=== PATIENT | male | born 1955 | race Caucasian/White ===

== ENCOUNTER 2021-09-01 12:08 | Outpatient (CLI) | payer MEDICARE, MEDICAID ==
[2021-09-01 12:34] LABS: BASOPHILS % (AUTO) 0.3 % (0-1); EOSINOPHILS % (AUTO) 0.1 % (0-6); HEMATOCRIT 36.8 % (42.0-52.0); LYMPHOCYTES # (AUTO) 1.2 X10'3 (1.1-4.8); MEAN CORPUSCULAR HEMOGLOBIN 30.6 PG (27.0-31.0); MEAN CORPUSCULAR HGB CONC 32.7 g/dL (33.0-36.5); MEAN CORPUSCULAR VOLUME 93.5 FL (78-98); MEAN PLATELET VOLUME 7.5 FL (7.4-10.4); MONOCYTES # (AUTO) 0.8 X10'3 (0-0.9); MONOCYTES % (AUTO) 12.4 % (2-12); NEUTROPHILS # (AUTO) 4.2 X10'3 (1.8-7.7); NEUTROPHILS % (AUTO) 68.2 % (42-75); PLATELET COUNT 225 X10'3 (140-440); RED BLOOD COUNT 3.94 X10'6 (4.70-6.10); RED CELL DISTRIBUTION WIDTH 13.3 % (11.5-14.5); WHITE BLOOD COUNT 6.1 X10'3 (4.5-11.0)
== END 2021-09-01 23:59 | disposition home or self-care (01) ==
LOC: LAB 12:08
DX: F25.0 Schizoaffective disorder, bipolar type (principal); F43.12 Post-traumatic stress disorder, chronic
CPT/HCPCS: 36415; 85025

== ENCOUNTER 2021-10-01 14:25 | Outpatient (CLI) | payer MEDICARE, MEDICAID ==
[2021-10-01 16:09] LABS: BASOPHILS % (AUTO) 0.5 % (0-1); EOSINOPHILS % (AUTO) 0.1 % (0-6); HEMOGLOBIN 11.8 g/dl (14.0-17.9); LYMPHOCYTES # (AUTO) 1.4 X10'3 (1.1-4.8); LYMPHOCYTES % (AUTO) 21.6 % (21-51); MEAN CORPUSCULAR HEMOGLOBIN 31.9 PG (27.0-31.0); MEAN CORPUSCULAR HGB CONC 33.8 g/dL (33.0-36.5); MEAN CORPUSCULAR VOLUME 94.4 FL (78-98); MEAN PLATELET VOLUME 8.5 FL (7.4-10.4); MONOCYTES # (AUTO) 0.7 X10'3 (0-0.9); MONOCYTES % (AUTO) 11.5 % (2-12); NEUTROPHILS # (AUTO) 4.2 X10'3 (1.8-7.7); NEUTROPHILS % (AUTO) 66.3 % (42-75); PLATELET COUNT 236 X10'3 (140-440); RED BLOOD COUNT 3.71 X10'6 (4.70-6.10); RED CELL DISTRIBUTION WIDTH 13.2 % (11.5-14.5); WHITE BLOOD COUNT 6.4 X10'3 (4.5-11.0)
== END 2021-10-01 23:59 | disposition home or self-care (01) ==
LOC: LAB 14:25
DX: F25.0 Schizoaffective disorder, bipolar type (principal); F43.12 Post-traumatic stress disorder, chronic
CPT/HCPCS: 36415; 85025

== ENCOUNTER 2021-11-20 14:13 | Inpatient (IN) | payer MEDICARE, MEDICAID ==
[~2021-11-20] VITALS: Ht 175.3 cm; Wt 54.5 kg
[2021-11-20 15:15] LABS: URINE AMPHETAMINE SCREEN NEGATIVE (Neg); URINE BARBITUATE SCREEN NEGATIVE (Neg); URINE BENZODIAZEPINES SCREEN NEGATIVE (Neg); URINE CANNABINOID SCREEN NEGATIVE (Neg); URINE COCAINE SCREEN NEGATIVE (Neg); URINE METHADONE SCREEN NEGATIVE (Neg); URINE OPIATE SCREEN NEGATIVE (Neg); URINE PHENCYCLIDINE SCREEN NEGATIVE (Neg)
[2021-11-20 15:19] LABS: CLARITY,URINE CLOUDY (Clear); COLOR,URINE YELLOW (Yellow); GLUCOSE, URINE NEGATIVE (Neg); KETONES,URINE NEGATIVE (Neg); LEUKOCYTE ESTERASE ,URINE MODERATE (Neg); NITRITES, URINE POSITIVE (Neg); OCCULT BLOOD,URINE MODERATE (Neg); PH,URINE 8.5 (4.8-8.0); PROTEIN,URINE 100 mg/dl (Neg)
[2021-11-20 15:20] LABS: UA COLLECTION TYPE CLN CATCH MIDSTREAM
[2021-11-20 15:21] LABS: BASOPHILS % (AUTO) 0.1 % (0-1); EOSINOPHILS % (AUTO) 0 % (0-6); HEMATOCRIT 32.1 % (42.0-52.0); HEMOGLOBIN 10.9 g/dl (14.0-17.9); LYMPHOCYTES # (AUTO) 0.6 X10'3 (1.1-4.8); LYMPHOCYTES % (AUTO) 3.6 % (21-51); MEAN CORPUSCULAR HEMOGLOBIN 30.5 PG (27.0-31.0); MEAN CORPUSCULAR HGB CONC 33.8 g/dL (33.0-36.5); MEAN CORPUSCULAR VOLUME 90.2 FL (78-98); MONOCYTES # (AUTO) 1.5 X10'3 (0-0.9); MONOCYTES % (AUTO) 9.6 % (2-12); NEUTROPHILS # (AUTO) 13.4 X10'3 (1.8-7.7); NEUTROPHILS % (AUTO) 86.7 % (42-75); PLATELET COUNT 235 X10'3 (140-440); RED BLOOD COUNT 3.56 X10'6 (4.70-6.10); RED CELL DISTRIBUTION WIDTH 12.5 % (11.5-14.5); WHITE BLOOD COUNT 15.5 X10'3 (4.5-11.0)
[2021-11-20 15:26] LABS: ALANINE AMINOTRANSFERASE 20 U/L (12-78); ALBUMIN 2.9 G/DL (3.4-5.0); ALBUMIN/GLOBULIN RATIO 0.6 (1.1-1.5); ALKALINE PHOSPHATASE 105 IU/L (46-116); ANION GAP 9 (8-16); ASPARTATE AMINO TRANSFERASE 19 U/L (10-37); BILIRUBIN,TOTAL 0.4 MG/DL (0.1-1.0); BLOOD UREA NITROGEN 50 MG/DL (7-18); BUN/CREATININE RATIO 20.6 (5.4-32.0); CALCIUM 9.4 MG/DL (8.5-10.1); CHLORIDE 96 MMOL/L (99-107); CREATININE 2.43 MG/DL (0.60-1.10); ETHANOL < 0.010 GM/DL (0.0-0.010); GLUCOSE 135 MG/DL (70-104); POTASSIUM 3.6 MMOL/L (3.5-5.1); SODIUM 131 MMOL/L (135-145); TOTAL CARBON DIOXIDE 25.6 MMOL/L (24-32); TOTAL PROTEIN 7.6 G/DL (6.4-8.2); eGFR 27 ML/MIN
[2021-11-20] MEDS ORDERED: CLOZAPINE 25 MG oral disintegrating tablet PO ONE (15:30)
[2021-11-20 15:32] LABS: SQUAMOUS EPITHELIAL CELL,UR FEW /LPF (FEW)
[2021-11-20 15:33] LABS: BACTERIA,URINE 2+ /HPF (Neg); WBC,URINE 20-30 /HPF (0-4)
[2021-11-20] MEDS ORDERED: clozapine 25mg tablet PO ONE ×2 (15:35)
[2021-11-20] MEDS ORDERED: ibuprofen 200mg tablet PO ONE (15:35)
[2021-11-20] MEDS ORDERED: CefTRIAXone/D5W-Rocephin 1gm 50 ML IV ONE (15:45)
--- NOTE | 2021-11-20 16:03 | NUR ---
BLACKWELL CATHETER REMOVED.
[2021-11-20] MEDS ORDERED: ondansetron 4mg rapidly disintigrating tab PO PRN (16:35)
[2021-11-20] MEDS ORDERED: diphenhydrAMINE 50 mg/ml inj IV PRN (16:35)
[2021-11-20] MEDS ORDERED: HYDROmorphone inj. 0.5 MG/0.5 ML DISP.SYRIN IV PRN (16:35)
[2021-11-20] MEDS ORDERED: bisacodyl 10mg suppository rectal RC PRN (16:35)
[2021-11-20] MEDS ORDERED: ondansetron/PF 4mg/2ml inj IV PRN (16:35)
[2021-11-20] MEDS ORDERED: HYDROmorphone/PF 0.2 MG/ML SYRINGE IV PRN (16:35)
[2021-11-20] MEDS ORDERED: mag hydrox/Alum hydrox/simeth 30ml oral suspension PO PRN (16:35)
[2021-11-20] MEDS ORDERED: HYDROcodone/acetaminophen 5mg/325mg tablet PO PRN (16:35)
[2021-11-20] MEDS ORDERED: POTASSIUM BICARB 20meq eff tab 20 MEQ TABLET.EFF PO PRN ×2 (16:35)
[2021-11-20] MEDS ORDERED: acetaminophen 325mg tablet PO PRN (16:35)
[2021-11-20] MEDS ORDERED: metoclopramide 5 mg/ml inj IV PRN (16:35)
[2021-11-20] MEDS ORDERED: diphenhydrAMINE 25mg capsule PO PRN (16:35)
[2021-11-20] MEDS ORDERED: potassium CL 10mEq/100ml bag 100 ML IV PRN (16:35)
[2021-11-20] MEDS ORDERED: magnesium Cl slow-release 64mg tablet PO PRN (16:35)
[2021-11-20] MEDS ORDERED: magnesium 2GM in 50ml NS 50 ML IV PRN (16:35)
[2021-11-20] MEDS ORDERED: magnesium 4gm in 100ml NS 100 ML IV PRN (16:35)
[2021-11-20] MEDS ORDERED: normal saline 1000ML IV soln IVB ONE (16:40)
[2021-11-20] MEDS: normal saline 1000ml 1,000 ML IV SCH (17:19)
[2021-11-20] MEDS ORDERED: CLOZ25TA12 PO (17:24)
[2021-11-20] MEDS ORDERED: TAMSULOSIN (17:24)
[2021-11-20] MEDS ORDERED: FLO0.4C (17:24)
[2021-11-20] MEDS ORDERED: CLOZ50TA PO ×2 (17:24→17:27)
[2021-11-20] MEDS ORDERED: DOCU-171 PO (17:25)
[2021-11-20] MEDS ORDERED: LIDOcaine 2% 10ml TOPICAL JELLY (Urojet) TP ONE (18:40)
[2021-11-20] MEDS: docusate sod 100mg capsule PO SCH (20:00)
[2021-11-20] MEDS: K and/or MAG REPLACEMENT MC SCH (20:00)
[2021-11-20] MEDS: heparin, porcine 5000 units/ml vial SQ SCH (20:58)
[2021-11-21] MEDS: normal saline 1000ml 1,000 ML IV SCH ×4 (02:36→23:09)
[2021-11-21 02:46] LABS: BASOPHILS % (AUTO) 0.1 % (0-1); EOSINOPHILS % (AUTO) 0 % (0-6); HEMATOCRIT 40.3 % (42.0-52.0); HEMOGLOBIN 13.5 g/dl (14.0-17.9); LYMPHOCYTES # (AUTO) 0.7 X10'3 (1.1-4.8); LYMPHOCYTES % (AUTO) 5.9 % (21-51); MEAN CORPUSCULAR HEMOGLOBIN 30.4 PG (27.0-31.0); MEAN CORPUSCULAR HGB CONC 33.5 g/dL (33.0-36.5); MEAN CORPUSCULAR VOLUME 90.9 FL (78-98); MEAN PLATELET VOLUME 8.2 FL (7.4-10.4); MONOCYTES # (AUTO) 0.7 X10'3 (0-0.9); MONOCYTES % (AUTO) 6.5 % (2-12); NEUTROPHILS % (AUTO) 87.5 % (42-75); PLATELET COUNT 180 X10'3 (140-440); RED BLOOD COUNT 4.43 X10'6 (4.70-6.10); RED CELL DISTRIBUTION WIDTH 12.8 % (11.5-14.5); WHITE BLOOD COUNT 11.5 X10'3 (4.5-11.0)
[2021-11-21 02:56] LABS: APTT 24 SECONDS (22-32)
[2021-11-21 03:07] LABS: ALANINE AMINOTRANSFERASE 17 U/L (12-78); ALBUMIN 2.5 G/DL (3.4-5.0); ALBUMIN/GLOBULIN RATIO 0.6 (1.1-1.5); ALKALINE PHOSPHATASE 96 IU/L (46-116); ANION GAP 8 (8-16); ASPARTATE AMINO TRANSFERASE 20 U/L (10-37); BILIRUBIN,TOTAL 0.3 MG/DL (0.1-1.0); BLOOD UREA NITROGEN 36 MG/DL (7-18); CALCIUM 8.8 MG/DL (8.5-10.1); CHLORIDE 102 MMOL/L (99-107); GLUCOSE 135 MG/DL (70-104); MAGNESIUM 1.8 MG/DL (1.5-2.4); PHOSPHORUS 2.4 MG/DL (2.3-4.5); POTASSIUM 3.4 MMOL/L (3.5-5.1); SODIUM 136 MMOL/L (135-145); TOTAL CARBON DIOXIDE 25.7 MMOL/L (24-32); TOTAL PROTEIN 6.9 G/DL (6.4-8.2); eGFR 34 ML/MIN
[2021-11-21] MEDS: CefTRIAXone/D5W-Rocephin 1gm 50 ML IV SCH (07:11)
[2021-11-21] MEDS: HYDROcodone/acetaminophen 10/325mg tab PO PRN ×3 (07:11→23:18)
[2021-11-21] MEDS: heparin, porcine 5000 units/ml vial SQ SCH ×2 (07:12→20:00)
[2021-11-21] MEDS: docusate sod 100mg capsule PO SCH ×2 (07:53→20:00)
[2021-11-21] MEDS: K and/or MAG REPLACEMENT MC SCH ×2 (08:00→20:00)
--- NOTE | 2021-11-21 12:00 | NUR ---
pt placed on hospital bed
--- NOTE | 2021-11-21 16:24 | NUR ---
RELIEVING RN FOR BREAK, PT C/O HEADACHE, "COMES AND GOES...LIKE AN ICEPICK", MEDICATED PER MD ORDER, PT IS RESTING QUIETLY ON HOSPITAL BED, GAVE HIM PITCHER OF ICE WATER WELL, MIA WELL NO N/V
[2021-11-21] MEDS ORDERED: docusate sod 100mg capsule PO SCH (20:00)
[2021-11-21] MEDS ORDERED: clozapine 25mg tablet PO SCH (21:00)
[2021-11-22] MEDS: OLANZapine **IM** 10 mg inj. IM PRN ×2 (01:26→07:28)
[2021-11-22] MEDS: normal saline 1000ml 1,000 ML IV SCH ×2 (07:28→15:21)
[2021-11-22] MEDS: heparin, porcine 5000 units/ml vial SQ SCH ×2 (07:28→19:56)
[2021-11-22] MEDS: CefTRIAXone/D5W-Rocephin 1gm 50 ML IV SCH (07:29)
[2021-11-22 07:32] LABS: BASOPHILS % (AUTO) 0.2 % (0-1); EOSINOPHILS % (AUTO) 0.1 % (0-6); HEMATOCRIT 25.3 % (42.0-52.0); HEMOGLOBIN 8.6 g/dl (14.0-17.9); LYMPHOCYTES # (AUTO) 0.9 X10'3 (1.1-4.8); MEAN CORPUSCULAR HEMOGLOBIN 30.9 PG (27.0-31.0); MEAN CORPUSCULAR HGB CONC 33.9 g/dL (33.0-36.5); MEAN CORPUSCULAR VOLUME 90.9 FL (78-98); MEAN PLATELET VOLUME 7.7 FL (7.4-10.4); MONOCYTES # (AUTO) 1.4 X10'3 (0-0.9); MONOCYTES % (AUTO) 13.3 % (2-12); NEUTROPHILS % (AUTO) 77.4 % (42-75); PLATELET COUNT 212 X10'3 (140-440); RED BLOOD COUNT 2.78 X10'6 (4.70-6.10); RED CELL DISTRIBUTION WIDTH 12.7 % (11.5-14.5); WHITE BLOOD COUNT 10.3 X10'3 (4.5-11.0)
[2021-11-22 07:55] LABS: ALANINE AMINOTRANSFERASE 21 U/L (12-78); ALBUMIN 2.3 G/DL (3.4-5.0); ALBUMIN/GLOBULIN RATIO 0.6 (1.1-1.5); ALKALINE PHOSPHATASE 88 IU/L (46-116); ANION GAP 7 (8-16); ASPARTATE AMINO TRANSFERASE 23 U/L (10-37); BILIRUBIN,TOTAL 0.3 MG/DL (0.1-1.0); BLOOD UREA NITROGEN 23 MG/DL (7-18); CALCIUM 8.8 MG/DL (8.5-10.1); CHLORIDE 101 MMOL/L (99-107); CREATININE 1.53 MG/DL (0.60-1.10); GLUCOSE 95 MG/DL (70-104); MAGNESIUM 1.5 MG/DL (1.5-2.4); PHOSPHORUS 1.9 MG/DL (2.3-4.5); POTASSIUM 3.7 MMOL/L (3.5-5.1); SODIUM 134 MMOL/L (135-145); TOTAL CARBON DIOXIDE 25.7 MMOL/L (24-32); TOTAL PROTEIN 6.3 G/DL (6.4-8.2); eGFR 46 ML/MIN
[2021-11-22] MEDS: docusate sod 100mg capsule PO SCH ×2 (08:00→19:55)
[2021-11-22] MEDS: K and/or MAG REPLACEMENT MC SCH ×2 (08:00→20:00)
[2021-11-22 08:38] LABS: APTT 31 SECONDS (22-32)
[2021-11-22] MEDS: HYDROcodone/acetaminophen 10/325mg tab PO PRN ×2 (11:31→15:25)
[2021-11-22 13:30] VITALS: BP 117/68
[2021-11-22 18:00] VITALS: BP 107/69
--- NOTE | 2021-11-22 18:23 | NUR ---
Problems reprioritized. Patient report given, questions answered & plan of care reviewed with Linda WILLIAMSON.
--- NOTE | 2021-11-22 18:25 | NUR ---
Patient in room ORTHO 4010. I have received report from Norma WILLIAMSON and had the opportunity to ask questions and assume patient care.
[2021-11-22] MEDS: tamsulosin 0.4mg capsule PO SCH (19:55)
[2021-11-22] MEDS: magnesium hydroxide 30ml (MOM) UD suspension PO PRN (20:02)
[2021-11-22 22:00] VITALS: BP 120/62
[2021-11-22] MEDS: CLOZAPINE 25 MG oral disintegrating tablet PO SCH (22:03)
[2021-11-23] MEDS: normal saline 1000ml 1,000 ML IV SCH ×2 (04:02→21:33)
[2021-11-23] MEDS: HYDROcodone/acetaminophen 10/325mg tab PO PRN ×3 (04:11→22:00)
[2021-11-23 06:00] VITALS: BP 131/81
--- NOTE | 2021-11-23 06:35 | NUR ---
Problems reprioritized. Patient report given, questions answered & plan of care reviewed with Mamie WILLIAMSON.
[2021-11-23 07:13] LABS: BASOPHILS % (AUTO) 0.1 % (0-1); EOSINOPHILS % (AUTO) 0.2 % (0-6); HEMATOCRIT 24.8 % (42.0-52.0); HEMOGLOBIN 8.5 g/dl (14.0-17.9); LYMPHOCYTES % (AUTO) 15.5 % (21-51); MEAN CORPUSCULAR HEMOGLOBIN 30.9 PG (27.0-31.0); MEAN CORPUSCULAR HGB CONC 34.4 g/dL (33.0-36.5); MEAN CORPUSCULAR VOLUME 90.1 FL (78-98); MEAN PLATELET VOLUME 7.5 FL (7.4-10.4); NEUTROPHILS # (AUTO) 4.5 X10'3 (1.8-7.7); NEUTROPHILS % (AUTO) 69.2 % (42-75); PLATELET COUNT 239 X10'3 (140-440); RED BLOOD COUNT 2.76 X10'6 (4.70-6.10); RED CELL DISTRIBUTION WIDTH 12.6 % (11.5-14.5); WHITE BLOOD COUNT 6.5 X10'3 (4.5-11.0)
[2021-11-23 07:18] LABS: APTT 30 SECONDS (22-32)
[2021-11-23 07:31] LABS: ALANINE AMINOTRANSFERASE 40 U/L (12-78); ALBUMIN 2.3 G/DL (3.4-5.0); ALBUMIN/GLOBULIN RATIO 0.5 (1.1-1.5); ALKALINE PHOSPHATASE 93 IU/L (46-116); ANION GAP 6 (8-16); ASPARTATE AMINO TRANSFERASE 34 U/L (10-37); BILIRUBIN,TOTAL 0.4 MG/DL (0.1-1.0); BLOOD UREA NITROGEN 19 MG/DL (7-18); BUN/CREATININE RATIO 13.9 (5.4-32.0); CALCIUM 9.2 MG/DL (8.5-10.1); CHLORIDE 99 MMOL/L (99-107); CREATININE 1.37 MG/DL (0.60-1.10); GLUCOSE 96 MG/DL (70-104); MAGNESIUM 1.8 MG/DL (1.5-2.4); PHOSPHORUS 2.7 MG/DL (2.3-4.5); POTASSIUM 3.6 MMOL/L (3.5-5.1); SODIUM 132 MMOL/L (135-145); TOTAL CARBON DIOXIDE 26.7 MMOL/L (24-32); TOTAL PROTEIN 6.6 G/DL (6.4-8.2); eGFR 52 ML/MIN
[2021-11-23] MEDS: K and/or MAG REPLACEMENT MC SCH ×2 (08:00→20:00)
[2021-11-23] MEDS: docusate sod 100mg capsule PO SCH ×2 (09:38→21:33)
[2021-11-23] MEDS: heparin, porcine 5000 units/ml vial SQ SCH ×2 (09:39→21:34)
[2021-11-23] MEDS: CefTRIAXone/D5W-Rocephin 1gm 50 ML IV SCH (09:39)
[2021-11-23 10:00] VITALS: BP 124/76
[2021-11-23] MEDS: clozapine 25mg tablet PO SCH (12:36)
--- NOTE | 2021-11-23 15:31 | NUR ---
PRESSURE ULCER EDUCATION: DEFINITION: A pressure ulcer is an area of skin that breaks down when you stay in one position too long. The constant pressure against the skin reduces the blood flow to that area and the affected tissue dies. CAUSES: "Being bedridden or in a wheelchair "Fragile skin "Having a chronic condition, such as diabetes or vascular disease "Inability to move certain parts of your body without assistance "Older age "Incontinence of urine or stool SYMPTOMS: "A reddened area that DOES NOT turn white when pressed on - this can be the beginning of a pressure ulcer "A blister, deep sore or a crater - these can be advanced pressure ulcers FIRST AID: "Relieve the pressure on this area "Keep the area clean and dry "Call your primary doctor if you see any of the above symptoms "DO NOT massage the area "DO NOT use a donut shaped or ring shaped pillow- these actually interfere with the blood flow and cause complications PREVENTION: "Check for pressure ulcers everyday "Change position at least every two hours to relieve pressure "Use items that help relieve pressure- pillows, sheepskin, foam padding, and powders. "Keep skin clean and dry "Eat healthy well balanced meals "Exercise daily IF YOU SEE ANY OF THESE SYMPTOMS WHILE IN THE HOSPITAL - TELL YOUR NURSE IMMEDIATELY. IF YOU SEE ANY OF THESE SYMPTOMS WHILE AT HOME OR HAVE ANY QUESTIONS OR CONCERNS ABOUT PRESSURE ULCERS - CALL YOUR PRIMARY DOCTOR IMMEDIATELY. Addendum: 11/23/21 at 1531 by Margoth Lin LVN Amended: Links added.
[2021-11-23 18:00] VITALS: BP 122/70
--- NOTE | 2021-11-23 18:29 | NUR ---
Problems reprioritized. Patient report given, questions answered & plan of care reviewed with Linda WILLIAMSON.
--- NOTE | 2021-11-23 18:30 | NUR ---
Patient in room ORTHO 4010. I have received report from Pb WILLIAMSON and had the opportunity to ask questions and assume patient care.
[2021-11-23] MEDS: CLOZAPINE 25 MG oral disintegrating tablet PO SCH (21:34)
[2021-11-23] MEDS: tamsulosin 0.4mg capsule PO SCH (21:34)
[2021-11-23 22:00] VITALS: BP 123/72
[2021-11-24] MEDS: acetaminophen 325mg tablet PO PRN (00:36)
[2021-11-24] MEDS: vancomycin/NS 1 GM ADD-VANTAGE 250 ML IV SCH ×2 (00:36→23:47)
[2021-11-24] MEDS: LORazepam 2 mg/ml vial IV PRN ×2 (03:11→23:47)
[2021-11-24 05:00] VITALS: BP 116/63
--- NOTE | 2021-11-24 06:11 | NUR ---
Problems reprioritized. Patient report given, questions answered & plan of care reviewed with Mamie WILLIAMSON.
[2021-11-24 07:13] LABS: BASOPHILS % (AUTO) 0.4 % (0-1); EOSINOPHILS % (AUTO) 0.3 % (0-6); HEMATOCRIT 26.1 % (42.0-52.0); HEMOGLOBIN 8.9 g/dl (14.0-17.9); LYMPHOCYTES # (AUTO) 1.3 X10'3 (1.1-4.8); LYMPHOCYTES % (AUTO) 25.2 % (21-51); MEAN CORPUSCULAR HEMOGLOBIN 30.6 PG (27.0-31.0); MEAN CORPUSCULAR HGB CONC 34.1 g/dL (33.0-36.5); MEAN CORPUSCULAR VOLUME 89.8 FL (78-98); MEAN PLATELET VOLUME 7.5 FL (7.4-10.4); MONOCYTES # (AUTO) 0.7 X10'3 (0-0.9); MONOCYTES % (AUTO) 13.5 % (2-12); NEUTROPHILS % (AUTO) 60.6 % (42-75); PLATELET COUNT 266 X10'3 (140-440); RED BLOOD COUNT 2.91 X10'6 (4.70-6.10); RED CELL DISTRIBUTION WIDTH 12.9 % (11.5-14.5)
[2021-11-24 07:31] LABS: ALANINE AMINOTRANSFERASE 41 U/L (12-78); ALBUMIN 2.3 G/DL (3.4-5.0); ALBUMIN/GLOBULIN RATIO 0.5 (1.1-1.5); ALKALINE PHOSPHATASE 94 IU/L (46-116); ANION GAP 8 (8-16); ASPARTATE AMINO TRANSFERASE 27 U/L (10-37); BILIRUBIN,TOTAL 0.3 MG/DL (0.1-1.0); BLOOD UREA NITROGEN 15 MG/DL (7-18); BUN/CREATININE RATIO 11.2 (5.4-32.0); CHLORIDE 106 MMOL/L (99-107); CREATININE 1.34 MG/DL (0.60-1.10); GLUCOSE 104 MG/DL (70-104); MAGNESIUM 1.7 MG/DL (1.5-2.4); PHOSPHORUS 3.5 MG/DL (2.3-4.5); POTASSIUM 3.8 MMOL/L (3.5-5.1); SODIUM 142 MMOL/L (135-145); TOTAL CARBON DIOXIDE 28.4 MMOL/L (24-32); TOTAL PROTEIN 6.5 G/DL (6.4-8.2); eGFR 54 ML/MIN
[2021-11-24] MEDS: clozapine 25mg tablet PO SCH ×2 (08:00→19:53)
[2021-11-24] MEDS: K and/or MAG REPLACEMENT MC SCH ×2 (08:36→19:44)
[2021-11-24] MEDS: CefTRIAXone/D5W-Rocephin 1gm 50 ML IV SCH (08:46)
[2021-11-24] MEDS: docusate sod 100mg capsule PO SCH ×2 (08:46→19:52)
[2021-11-24] MEDS: heparin, porcine 5000 units/ml vial SQ SCH ×2 (08:46→19:52)
[2021-11-24 10:00] VITALS: BP 121/76
[2021-11-24 18:00] VITALS: BP 123/82
--- NOTE | 2021-11-24 18:35 | NUR ---
Patient in room ORTHO 4010. I have received report from Mamie WILLIAMSON and had the opportunity to ask questions and assume patient care.
--- NOTE | 2021-11-24 18:37 | NUR ---
Problems reprioritized. Patient report given, questions answered & plan of care reviewed with Linda WILLIAMSON.
[2021-11-24] MEDS: tamsulosin 0.4mg capsule PO SCH (19:54)
[2021-11-24] MEDS: CLOZAPINE 25 MG oral disintegrating tablet PO SCH (19:54)
[2021-11-24] MEDS ORDERED: OLANZapine 2.5MG tablet PO SCH (20:00)
--- NOTE | 2021-11-24 22:00 | NUR ---
Patient refused for second set of VS to be taken
--- NOTE | 2021-11-24 23:45 | NUR ---
Patient has been acting out trying to kick and being verbally offensive to staff. Ativan given,
[2021-11-25] MEDS: HYDROcodone/acetaminophen 10/325mg tab PO PRN ×2 (00:18→08:49)
[2021-11-25] MEDS: OLANZapine **IM** 10 mg inj. IM PRN (01:41)
--- NOTE | 2021-11-25 04:35 | NUR ---
Unfortunately, unable to initiate bladder training this shift d/t patient not being co-operative.
--- NOTE | 2021-11-25 04:47 | NUR ---
Called over to [facility] and spoke to Nursing Air Carrier Inspector in relation to obtaining the medical records for this patients recent visit there. Unfortunately he stated that he only has record info up until 10pm at night and that we will have to start over today and send a medical release form to their medical records office.
[2021-11-25 06:00] VITALS: BP 126/82
--- NOTE | 2021-11-25 06:21 | NUR ---
Problems reprioritized. Patient report given, questions answered & plan of care reviewed with Catherine Stephenson.
[2021-11-25 06:36] LABS: BASOPHILS % (AUTO) 0.5 % (0-1); EOSINOPHILS % (AUTO) 0.2 % (0-6); HEMATOCRIT 27.5 % (42.0-52.0); HEMOGLOBIN 9.4 g/dl (14.0-17.9); LYMPHOCYTES # (AUTO) 1.6 X10'3 (1.1-4.8); LYMPHOCYTES % (AUTO) 27.5 % (21-51); MEAN CORPUSCULAR HEMOGLOBIN 31.1 PG (27.0-31.0); MEAN CORPUSCULAR HGB CONC 34.3 g/dL (33.0-36.5); MEAN CORPUSCULAR VOLUME 90.6 FL (78-98); MEAN PLATELET VOLUME 7.2 FL (7.4-10.4); MONOCYTES # (AUTO) 0.6 X10'3 (0-0.9); MONOCYTES % (AUTO) 9.8 % (2-12); NEUTROPHILS # (AUTO) 3.7 X10'3 (1.8-7.7); PLATELET COUNT 352 X10'3 (140-440); RED BLOOD COUNT 3.03 X10'6 (4.70-6.10); RED CELL DISTRIBUTION WIDTH 12.8 % (11.5-14.5); WHITE BLOOD COUNT 5.9 X10'3 (4.5-11.0)
[2021-11-25 06:48] LABS: ALANINE AMINOTRANSFERASE 44 U/L (12-78); ALBUMIN 2.5 G/DL (3.4-5.0); ALBUMIN/GLOBULIN RATIO 0.5 (1.1-1.5); ALKALINE PHOSPHATASE 91 IU/L (46-116); ANION GAP 8 (8-16); ASPARTATE AMINO TRANSFERASE 29 U/L (10-37); BILIRUBIN,TOTAL 0.4 MG/DL (0.1-1.0); BLOOD UREA NITROGEN 13 MG/DL (7-18); BUN/CREATININE RATIO 9.6 (5.4-32.0); CALCIUM 9.5 MG/DL (8.5-10.1); CHLORIDE 107 MMOL/L (99-107); CREATININE 1.35 MG/DL (0.60-1.10); GLUCOSE 91 MG/DL (70-104); PHOSPHORUS 3.5 MG/DL (2.3-4.5); POTASSIUM 3.6 MMOL/L (3.5-5.1); SODIUM 144 MMOL/L (135-145); TOTAL CARBON DIOXIDE 29.1 MMOL/L (24-32); TOTAL PROTEIN 7.2 G/DL (6.4-8.2); eGFR 53 ML/MIN
--- NOTE | 2021-11-25 07:17 | NUR ---
Patient in room ORTHO 4010. I have received report from Linda WILLIAMSON and had the opportunity to ask questions and assume patient care.
[2021-11-25] MEDS: K and/or MAG REPLACEMENT MC SCH ×2 (08:00→19:26)
--- NOTE | 2021-11-25 08:35 | NUR ---
Initial: Pt admitted w/ UTI, ASHLY, and schizophrenia per EMR. Currently on a Regular diet w/ avg intake 66% x 7 meals close to meeting minimum nutrient needs. Will provide smoothie/shakes BID for additional kcals/protein. Pt noted to be agitated at times. BMI is low using non-scaled wt though appears WD/WN per ED note. LBM 11/21 receiving routine and PRN bowel care. Will continue to monitor. Recs; 1. Continue Regular diet as tolerated 2. Smoothie WB, Shake WS 3. Bowel care per rx 4. Scaled wts Addendum: 11/25/21 at [address] Amended: Links added.
[2021-11-25] MEDS: docusate sod 100mg capsule PO SCH ×2 (08:42→21:34)
[2021-11-25] MEDS: heparin, porcine 5000 units/ml vial SQ SCH ×2 (08:43→21:37)
[2021-11-25] MEDS ORDERED: OLANZAPINE 5 MG TABLET PO ONE (08:55)
[2021-11-25 10:00] VITALS: BP 120/69
[2021-11-25] MEDS: [UNRECOGNIZED DRUG - MIXTURE] IV SCH ×2 (11:40→16:00)
[2021-11-25 18:00] VITALS: BP 127/81
[2021-11-25] MEDS: tamsulosin 0.4mg capsule PO SCH (21:34)
[2021-11-25] MEDS: CLOZAPINE 25 MG oral disintegrating tablet PO SCH (21:35)
[2021-11-25] MEDS: OLANZAPINE 5 MG TABLET PO SCH (21:38)
[2021-11-25 22:00] VITALS: BP 134/76
[2021-11-25] MEDS: vancomycin/NS 1 GM ADD-VANTAGE 250 ML IV SCH (22:35)
[2021-11-26] MEDS: [UNRECOGNIZED DRUG - MIXTURE] IV SCH ×3 (00:28→15:49)
[2021-11-26] MEDS: OLANZapine **IM** 10 mg inj. IM PRN (01:41)
[2021-11-26 06:00] VITALS: BP 119/76
--- NOTE | 2021-11-26 06:19 | NUR ---
Patient in room ORTHO 4010. I have received report from Allen WILLIAMSON and had the opportunity to ask questions and assume patient care.
[2021-11-26 07:58] LABS: BASOPHILS % (AUTO) 0.4 % (0-1); EOSINOPHILS % (AUTO) 0 % (0-6); HEMATOCRIT 26.4 % (42.0-52.0); LYMPHOCYTES # (AUTO) 1.3 X10'3 (1.1-4.8); LYMPHOCYTES % (AUTO) 24.1 % (21-51); MEAN CORPUSCULAR HEMOGLOBIN 31.1 PG (27.0-31.0); MEAN CORPUSCULAR HGB CONC 34.2 g/dL (33.0-36.5); MEAN CORPUSCULAR VOLUME 90.9 FL (78-98); MEAN PLATELET VOLUME 7.1 FL (7.4-10.4); MONOCYTES # (AUTO) 0.6 X10'3 (0-0.9); MONOCYTES % (AUTO) 11.6 % (2-12); NEUTROPHILS # (AUTO) 3.4 X10'3 (1.8-7.7); NEUTROPHILS % (AUTO) 63.9 % (42-75); PLATELET COUNT 394 X10'3 (140-440); WHITE BLOOD COUNT 5.4 X10'3 (4.5-11.0)
[2021-11-26] MEDS: K and/or MAG REPLACEMENT MC SCH ×2 (08:00→20:00)
[2021-11-26] MEDS: OLANZAPINE 5 MG TABLET PO SCH ×2 (08:43→21:22)
[2021-11-26] MEDS: docusate sod 100mg capsule PO SCH ×2 (08:43→21:23)
[2021-11-26] MEDS: heparin, porcine 5000 units/ml vial SQ SCH ×2 (08:44→21:24)
[2021-11-26 10:00] VITALS: BP 118/72
[2021-11-26] MEDS: HYDROcodone/acetaminophen 10/325mg tab PO PRN (15:50)
[2021-11-26 18:00] VITALS: BP 105/73
--- NOTE | 2021-11-26 19:38 | NUR ---
Patient in room ORTHO 4010. I have received report from PCAO WILLIAMSON and had the opportunity to ask questions and assume patient care.
[2021-11-26] MEDS: CLOZAPINE 25 MG oral disintegrating tablet PO SCH (21:23)
[2021-11-26] MEDS: tamsulosin 0.4mg capsule PO SCH (21:23)
[2021-11-26 22:00] VITALS: BP 136/73
[2021-11-26] MEDS: acetaminophen 325mg tablet PO PRN (22:09)
[2021-11-26] MEDS ORDERED: VANCOMYCIN LEVEL IV ONE (22:30)
[2021-11-26] MEDS: vancomycin/NS 1 GM ADD-VANTAGE 250 ML IV SCH (22:48)
[2021-11-27] MEDS: [UNRECOGNIZED DRUG - MIXTURE] IV SCH ×3 (00:27→16:10)
[2021-11-27] MEDS: HYDROcodone/acetaminophen 10/325mg tab PO PRN ×2 (04:53→09:23)
[2021-11-27 06:00] VITALS: BP 134/93
--- NOTE | 2021-11-27 06:42 | NUR ---
Problems reprioritized. Patient report given, questions answered & plan of care reviewed with ANALY WILLIAMSON.
--- NOTE | 2021-11-27 06:50 | NUR ---
Patient in room ORTHO 4010. I have received report from CLAY Justin and had the opportunity to ask questions and assume patient care.
[2021-11-27] MEDS: K and/or MAG REPLACEMENT MC SCH ×2 (08:00→19:00)
[2021-11-27] MEDS: OLANZAPINE 5 MG TABLET PO SCH (08:37)
[2021-11-27] MEDS: heparin, porcine 5000 units/ml vial SQ SCH ×2 (08:39→20:02)
[2021-11-27] MEDS: docusate sod 100mg capsule PO SCH ×2 (08:39→19:58)
[2021-11-27 10:00] VITALS: BP 117/73
[2021-11-27 18:00] VITALS: BP 114/81
--- NOTE | 2021-11-27 18:19 | NUR ---
Problems reprioritized. Patient report given, questions answered & plan of care reviewed with CLAY Stevenson.
--- NOTE | 2021-11-27 18:40 | NUR ---
Patient in room ORTHO 4010. I have received report from ANALY WILLIAMSON and had the opportunity to ask questions and assume patient care.
[2021-11-27] MEDS: olanzapine 10mg tablet PO SCH (19:58)
[2021-11-27] MEDS: tamsulosin 0.4mg capsule PO SCH (19:58)
[2021-11-27 22:00] VITALS: BP 112/74
[2021-11-27] MEDS: VANCOmycin 1250MG/NS 250ml Bag 250 ML IV SCH (23:47)
[2021-11-28] MEDS: HYDROcodone/acetaminophen 10/325mg tab PO PRN ×3 (00:21→22:40)
[2021-11-28] MEDS: [UNRECOGNIZED DRUG - MIXTURE] IV SCH ×3 (00:26→16:09)
--- NOTE | 2021-11-28 06:48 | NUR ---
Problems reprioritized. Patient report given, questions answered & plan of care reviewed with ROBBIE WILLIAMSON.
--- NOTE | 2021-11-28 07:18 | NUR ---
I received patient report from Graham and patient also refused vitals this morning so far
[2021-11-28] MEDS: OLANZAPINE 5 MG TABLET PO SCH (07:43)
[2021-11-28] MEDS: docusate sod 100mg capsule PO SCH ×2 (07:44→20:12)
[2021-11-28] MEDS: heparin, porcine 5000 units/ml vial SQ SCH ×2 (07:44→20:12)
[2021-11-28] MEDS: K and/or MAG REPLACEMENT MC SCH ×2 (08:00→19:50)
[2021-11-28 10:00] VITALS: BP 174/87
[2021-11-28 14:00] VITALS: BP 106/64
[2021-11-28 18:00] VITALS: BP 113/76
[2021-11-28] MEDS: olanzapine 10mg tablet PO SCH (20:12)
[2021-11-28] MEDS: tamsulosin 0.4mg capsule PO SCH (20:12)
[2021-11-28 22:00] VITALS: BP 116/75
[2021-11-28] MEDS: VANCOmycin 1250MG/NS 250ml Bag 250 ML IV SCH (22:40)
[2021-11-29] MEDS: [UNRECOGNIZED DRUG - MIXTURE] IV SCH ×3 (00:32→17:02)
[2021-11-29] MEDS: LORazepam 1 MG tablet PO PRN ×2 (01:19→20:19)
[2021-11-29 05:45] LABS: BASOPHILS % (AUTO) 0.5 % (0-1); EOSINOPHILS % (AUTO) 0.1 % (0-6); HEMATOCRIT 24.4 % (42.0-52.0); HEMOGLOBIN 8.4 g/dl (14.0-17.9); LYMPHOCYTES # (AUTO) 1.7 X10'3 (1.1-4.8); LYMPHOCYTES % (AUTO) 27.3 % (21-51); MEAN CORPUSCULAR HEMOGLOBIN 31.2 PG (27.0-31.0); MEAN CORPUSCULAR HGB CONC 34.3 g/dL (33.0-36.5); MEAN CORPUSCULAR VOLUME 91.1 FL (78-98); MEAN PLATELET VOLUME 7.2 FL (7.4-10.4); MONOCYTES # (AUTO) 0.7 X10'3 (0-0.9); MONOCYTES % (AUTO) 11.1 % (2-12); NEUTROPHILS # (AUTO) 3.9 X10'3 (1.8-7.7); PLATELET COUNT 423 X10'3 (140-440); RED BLOOD COUNT 2.68 X10'6 (4.70-6.10); RED CELL DISTRIBUTION WIDTH 13.1 % (11.5-14.5); WHITE BLOOD COUNT 6.4 X10'3 (4.5-11.0)
[2021-11-29 06:00] VITALS: BP 110/69
[2021-11-29 06:04] LABS: ALANINE AMINOTRANSFERASE 37 U/L (12-78); ALBUMIN 2.5 G/DL (3.4-5.0); ALBUMIN/GLOBULIN RATIO 0.6 (1.1-1.5); ALKALINE PHOSPHATASE 78 IU/L (46-116); ANION GAP 8 (8-16); ASPARTATE AMINO TRANSFERASE 16 U/L (10-37); BILIRUBIN,TOTAL 0.4 MG/DL (0.1-1.0); BLOOD UREA NITROGEN 14 MG/DL (7-18); BUN/CREATININE RATIO 10.1 (5.4-32.0); CALCIUM 9.2 MG/DL (8.5-10.1); CHLORIDE 105 MMOL/L (99-107); CREATININE 1.39 MG/DL (0.60-1.10); GLUCOSE 90 MG/DL (70-104); POTASSIUM 4.1 MMOL/L (3.5-5.1); SODIUM 139 MMOL/L (135-145); TOTAL CARBON DIOXIDE 25.7 MMOL/L (24-32); TOTAL PROTEIN 6.5 G/DL (6.4-8.2); eGFR 51 ML/MIN
--- NOTE | 2021-11-29 06:33 | NUR ---
Patient in room ORTHO 4010. I have received report from marty queen and had the opportunity to ask questions and assume patient care.
[2021-11-29] MEDS: OLANZAPINE 5 MG TABLET PO SCH (07:32)
[2021-11-29] MEDS: docusate sod 100mg capsule PO SCH ×2 (07:32→20:19)
[2021-11-29] MEDS: heparin, porcine 5000 units/ml vial SQ SCH ×2 (07:33→20:19)
[2021-11-29] MEDS: K and/or MAG REPLACEMENT MC SCH ×2 (08:00→19:38)
[2021-11-29 09:55] VITALS: BP 112/69
[2021-11-29] MEDS: HYDROcodone/acetaminophen 10/325mg tab PO PRN ×2 (11:45→19:59)
--- NOTE | 2021-11-29 15:59 | NUR ---
Page Sent PAGER ID: [phone] MESSAGE: [phone] Liu, sister would like you to call her about her brother she is the POA. number is [phone]
[2021-11-29] MEDS: magnesium hydroxide 30ml (MOM) UD suspension PO PRN (17:02)
[2021-11-29 18:00] VITALS: BP 115/70
--- NOTE | 2021-11-29 18:15 | NUR ---
Problems reprioritized. Patient report given, questions answered & plan of care reviewed with marty queen.
[2021-11-29 18:30] VITALS: BP 133/77
--- NOTE | 2021-11-29 18:46 | NUR ---
Patient had an unwitnessed fall outside of the bathroom in his room. Patient had been instructed to use call light in bathroom for assistance but has been noncompliant at times. Patient did not hit his head and only complained of hitting his elbow. VSS BP 133/77 HR 100 98 02 on RA. Patient assisted back to bed. Bed alarm on at this time with call light within reach. Pt verbalized that he should have had assistance I just lost my balance. Pt is in view from nursing station.
--- NOTE | 2021-11-29 18:50 | NUR ---
MD LOVELL paged regarding fall: [phone] Norberto Hatfield had a fall coming out of the bathroom unassisted. Pt non-compliant with use of call light. No injuries noted. BP 133/77 HR 100. Pt back to bed with bed alarm on. Breanna WILLIAMSON [id number]
[2021-11-29] MEDS: tamsulosin 0.4mg capsule PO SCH (20:19)
[2021-11-29] MEDS: olanzapine 10mg tablet PO SCH (20:19)
[2021-11-29 22:00] VITALS: BP 119/67
[2021-11-29] MEDS: VANCOmycin 1250MG/NS 250ml Bag 250 ML IV SCH (22:52)
[2021-11-30] MEDS: [UNRECOGNIZED DRUG - MIXTURE] IV SCH ×3 (00:31→17:30)
[2021-11-30] MEDS: HYDROcodone/acetaminophen 10/325mg tab PO PRN ×3 (02:54→20:13)
[2021-11-30 06:00] VITALS: BP 132/68
[2021-11-30] MEDS: K and/or MAG REPLACEMENT MC SCH ×2 (08:00→20:00)
[2021-11-30] MEDS: OLANZAPINE 5 MG TABLET PO SCH (08:38)
[2021-11-30] MEDS: heparin, porcine 5000 units/ml vial SQ SCH ×2 (08:39→20:13)
[2021-11-30] MEDS: docusate sod 100mg capsule PO SCH ×2 (08:39→20:14)
--- NOTE | 2021-11-30 09:00 | NUR ---
Reassessment: Pt continues on Regular diet w/ avg intake 61% x 9 meals though is recently up to mostly 100% since 11/28, meeting est needs at this time. LBM 11/28 receiving routine and PRN bowel care. No change to recommendations at this time, will continue to monitor. Recs; 1. Continue Regular diet as tolerated 2. Smoothie WB, Shake WS 3. Bowel care per rx 4. Scaled wts Addendum: 11/30/21 at [address] Amended: Links added.
[2021-11-30 10:00] VITALS: BP 97/55
--- NOTE | 2021-11-30 12:30 | NUR ---
informed charge nurse that pt needs a sitter, he is being impulsive and angry. i have told him to use the call light numerous times before getting up he does not use it, i have put the bed alarm on him numerous times and he thinks its a game or takes off the tabs alarm. He is not complaint and is at a high risk for falls. charge said she will organize and get a sitter for him and talk to nursing booking supervisor
[2021-11-30 18:00] VITALS: BP 117/74
--- NOTE | 2021-11-30 18:40 | NUR ---
Patient in room ORTHO 4010B. I have received report from CLAY Dejesus and had the opportunity to ask questions and assume patient care.
--- NOTE | 2021-11-30 18:58 | NUR ---
Problems reprioritized. Patient report given, questions answered & plan of care reviewed with erica queen.
[2021-11-30] MEDS: tamsulosin 0.4mg capsule PO SCH (20:12)
[2021-11-30] MEDS: LORazepam 1 MG tablet PO PRN (20:13)
[2021-11-30] MEDS: olanzapine 10mg tablet PO SCH (20:13)
[2021-11-30 22:00] VITALS: BP 116/72
[2021-11-30] MEDS ORDERED: VANCOMYCIN LEVEL IV ONE (22:30)
--- NOTE | 2021-11-30 23:16 | NUR ---
Received critical lab value for patient Vanco Trough of 20.5. Pharmacy consulted with recommendation to hang 2300 dose as scheduled and they will evaluate further dose for change. MD will be notified of critical value and pharmacy recommendation.
[2021-11-30] MEDS: VANCOmycin 1250MG/NS 250ml Bag 250 ML IV SCH (23:19)
[2021-12-01] MEDS: [UNRECOGNIZED DRUG - MIXTURE] IV SCH ×3 (01:38→16:44)
[2021-12-01 06:00] VITALS: BP 104/66
--- NOTE | 2021-12-01 06:10 | NUR ---
Problems reprioritized. Patient report given, questions answered & plan of care reviewed with CLAY Valdez.
--- NOTE | 2021-12-01 06:51 | NUR ---
Patient in room ORTHO 4010. I have received report from erica queen and had the opportunity to ask questions and assume patient care.
[2021-12-01] MEDS: LORazepam 1 MG tablet PO PRN ×2 (07:45→21:08)
[2021-12-01] MEDS: docusate sod 100mg capsule PO SCH ×2 (07:45→19:13)
[2021-12-01] MEDS: OLANZAPINE 5 MG TABLET PO SCH (07:45)
[2021-12-01] MEDS: heparin, porcine 5000 units/ml vial SQ SCH ×2 (07:47→19:09)
[2021-12-01] MEDS: K and/or MAG REPLACEMENT MC SCH ×2 (08:00→20:00)
[2021-12-01 10:00] VITALS: BP 111/61
[2021-12-01 18:00] VITALS: BP 110/68
[2021-12-01] MEDS: olanzapine 10mg tablet PO SCH (21:08)
[2021-12-01] MEDS: tamsulosin 0.4mg capsule PO SCH (21:08)
[2021-12-01 22:00] VITALS: BP 119/58
[2021-12-01] MEDS: vancomycin/NS 1 GM ADD-VANTAGE 250 ML IV SCH (23:21)
[2021-12-02] MEDS: [UNRECOGNIZED DRUG - MIXTURE] IV SCH ×3 (01:14→16:03)
--- NOTE | 2021-12-02 02:27 | NUR ---
Problems reprioritized. Patient report given, questions answered & plan of care reviewed with PRATIMA WILLIAMSON.
--- NOTE | 2021-12-02 04:59 | NUR ---
pt had a witnessed fall. pt was standing using walker and appeared to be trying to get back to bed. i was observing from nurse's station and saw pt fell. went into the room and found pt on the bottom. there is a iv pole that pt might hit head. there was no laceration, redness, bruising found on head nor body. vs 113/71 hr85 rr19 97%ra. Dr Moran was notified.
[2021-12-02 06:00] VITALS: BP 101/46
--- NOTE | 2021-12-02 06:13 | NUR ---
Problems reprioritized. Patient report given, questions answered & plan of care reviewed with bernice Gerard.
[2021-12-02] MEDS: docusate sod 100mg capsule PO SCH ×2 (07:12→20:31)
[2021-12-02] MEDS: OLANZAPINE 5 MG TABLET PO SCH (07:13)
[2021-12-02] MEDS: heparin, porcine 5000 units/ml vial SQ SCH ×2 (07:13→20:32)
[2021-12-02 07:19] LABS: BASOPHILS % (AUTO) 0.2 % (0-1); EOSINOPHILS % (AUTO) 0 % (0-6); HEMATOCRIT 26.7 % (42.0-52.0); HEMOGLOBIN 9.2 g/dl (14.0-17.9); LYMPHOCYTES # (AUTO) 1.1 X10'3 (1.1-4.8); LYMPHOCYTES % (AUTO) 10.2 % (21-51); MEAN CORPUSCULAR HEMOGLOBIN 30.9 PG (27.0-31.0); MEAN CORPUSCULAR HGB CONC 34.3 g/dL (33.0-36.5); MEAN CORPUSCULAR VOLUME 90.1 FL (78-98); MEAN PLATELET VOLUME 7.1 FL (7.4-10.4); MONOCYTES # (AUTO) 1.1 X10'3 (0-0.9); MONOCYTES % (AUTO) 9.7 % (2-12); NEUTROPHILS # (AUTO) 8.8 X10'3 (1.8-7.7); NEUTROPHILS % (AUTO) 79.9 % (42-75); PLATELET COUNT 451 X10'3 (140-440); RED BLOOD COUNT 2.96 X10'6 (4.70-6.10); RED CELL DISTRIBUTION WIDTH 13.4 % (11.5-14.5)
[2021-12-02] MEDS: HYDROcodone/acetaminophen 10/325mg tab PO PRN ×2 (07:21→20:38)
[2021-12-02 07:57] LABS: ALANINE AMINOTRANSFERASE 32 U/L (12-78); ALBUMIN 3.1 G/DL (3.4-5.0); ALBUMIN/GLOBULIN RATIO 0.7 (1.1-1.5); ALKALINE PHOSPHATASE 91 IU/L (46-116); ANION GAP 13 (8-16); ASPARTATE AMINO TRANSFERASE 18 U/L (10-37); BILIRUBIN,TOTAL 0.3 MG/DL (0.1-1.0); BLOOD UREA NITROGEN 19 MG/DL (7-18); CALCIUM 9.7 MG/DL (8.5-10.1); CHLORIDE 103 MMOL/L (99-107); CREATININE 1.46 MG/DL (0.60-1.10); GLUCOSE 97 MG/DL (70-104); POTASSIUM 4.1 MMOL/L (3.5-5.1); SODIUM 140 MMOL/L (135-145); TOTAL CARBON DIOXIDE 24.5 MMOL/L (24-32); TOTAL PROTEIN 7.4 G/DL (6.4-8.2); eGFR 49 ML/MIN
[2021-12-02] MEDS: K and/or MAG REPLACEMENT MC SCH ×2 (08:00→20:00)
[2021-12-02 10:00] VITALS: BP 139/75
--- NOTE | 2021-12-02 10:58 | NUR ---
Dulce PLAZA PER REQUEST, WILL MONITOR URINE OUTPUT CLOSELY Addendum: 12/02/21 at 1100 by Rajani Campbell RN JAZZMINE PLAZA PER REQUEST, WILL MONITOR URINE OUTPUT CLOSELY
--- NOTE | 2021-12-02 13:52 | NUR ---
pATIENT STATES HES VOIDED X2 IN THE TOILET
[2021-12-02 18:00] VITALS: BP 110/71
[2021-12-02] MEDS: tamsulosin 0.4mg capsule PO SCH (20:31)
[2021-12-02] MEDS: olanzapine 10mg tablet PO SCH (20:31)
[2021-12-02 22:00] VITALS: BP 113/63
[2021-12-02] MEDS: vancomycin/NS 1 GM ADD-VANTAGE 250 ML IV SCH (22:42)
--- NOTE | 2021-12-02 23:48 | NUR ---
Patient's Sears catheter DC'D this morning and patient has been noncompliant with allowing nursing staff to measure urine. Patient finally allowing staff to blader scan and having patient urinate in urinal. Bladder scanned for 474ml. Patient refusing to allow nursing to straight cath patient at this time. Patient becoming verbally aggressive with staff. Encouraging patient to void every hour and educating patient on the need for straight cath.
[2021-12-03] MEDS: [UNRECOGNIZED DRUG - MIXTURE] IV SCH ×3 (00:34→09:25)
[2021-12-03] MEDS: HYDROcodone/acetaminophen 10/325mg tab PO PRN ×3 (02:10→16:05)
--- NOTE | 2021-12-03 02:15 | NUR ---
Patient still peeing in urinal but still having high bladder scan amounts and patient starting to have pain when urinating. Patient allowed nursing to straight cath per protocol after Sears removal. Received 550ml when straight cath was inserted.
[2021-12-03 06:00] VITALS: BP 110/63
--- NOTE | 2021-12-03 06:18 | NUR ---
Problems reprioritized. Patient report given, questions answered & plan of care reviewed with Rajani WILLIAMSON.
--- NOTE | 2021-12-03 06:40 | NUR ---
Patient in room ORTHO 4010. I have received report from rut queen and had the opportunity to ask questions and assume patient care.
--- NOTE | 2021-12-03 06:41 | NUR ---
pt ambulated 300 ft this am
[2021-12-03] MEDS: heparin, porcine 5000 units/ml vial SQ SCH ×2 (07:40→20:00)
[2021-12-03] MEDS: OLANZAPINE 5 MG TABLET PO SCH (07:40)
[2021-12-03] MEDS: docusate sod 100mg capsule PO SCH ×2 (07:40→20:00)
[2021-12-03] MEDS: K and/or MAG REPLACEMENT MC SCH ×2 (08:00→18:33)
[2021-12-03 10:00] VITALS: BP 100/69
--- NOTE | 2021-12-03 14:18 | NUR ---
PT VOIDED IN TOILET, PT BLADDER SCANNED AT 1415. RESIDUAL VOLUME = 347ML
--- NOTE | 2021-12-03 17:36 | NUR ---
PT VOIDED IN TOILET, BLADDER SCAN, POST VOID RESIDUAL 391ML. WILL CONTINUE TO MONITOR
[2021-12-03 18:00] VITALS: BP 110/62
[2021-12-03] MEDS ORDERED: LIDOcaine 2% 10ml TOPICAL JELLY (Urojet) TP ONE ×2 (20:50→21:00)
[2021-12-03] MEDS: tamsulosin 0.4mg capsule PO SCH (21:00)
[2021-12-03] MEDS: olanzapine 10mg tablet PO SCH (21:00)
[2021-12-03 22:00] VITALS: BP 119/65
[2021-12-04] MEDS: HYDROcodone/acetaminophen 10/325mg tab PO PRN ×4 (02:01→19:20)
--- NOTE | 2021-12-04 05:08 | NUR ---
Has been getting up multiple times trying to have a BM tonight about every 10-15 minutes; not sleeping at all. Very argumentative about staying in his bed. He has an unsteady gait and almost fell in front of me while he was playing with his f/c bag. The montoya on the bag for the f/c has broken and it was just placed on 12/03. He will not stop playing/messing with the tubing and clip of the f/c bag and tubing even when told to stop touching and pulling on it.
[2021-12-04 06:00] VITALS: BP 107/67
--- NOTE | 2021-12-04 06:39 | NUR ---
Problems reprioritized. Patient report given, questions answered & plan of care reviewed with CLAY Green.
[2021-12-04 06:41] LABS: BASOPHILS % (AUTO) 0.4 % (0-1); EOSINOPHILS % (AUTO) 0.1 % (0-6); HEMATOCRIT 28.6 % (42.0-52.0); HEMOGLOBIN 9.7 g/dl (14.0-17.9); LYMPHOCYTES # (AUTO) 1.6 X10'3 (1.1-4.8); LYMPHOCYTES % (AUTO) 26.6 % (21-51); MEAN CORPUSCULAR HEMOGLOBIN 30.8 PG (27.0-31.0); MEAN CORPUSCULAR HGB CONC 33.8 g/dL (33.0-36.5); MEAN CORPUSCULAR VOLUME 91.1 FL (78-98); MEAN PLATELET VOLUME 7.7 FL (7.4-10.4); MONOCYTES % (AUTO) 15.7 % (2-12); NEUTROPHILS # (AUTO) 3.5 X10'3 (1.8-7.7); NEUTROPHILS % (AUTO) 57.2 % (42-75); PLATELET COUNT 448 X10'3 (140-440); RED BLOOD COUNT 3.13 X10'6 (4.70-6.10); WHITE BLOOD COUNT 6.1 X10'3 (4.5-11.0)
[2021-12-04 06:59] LABS: ALANINE AMINOTRANSFERASE 25 U/L (12-78); ALBUMIN 3.2 G/DL (3.4-5.0); ALBUMIN/GLOBULIN RATIO 0.7 (1.1-1.5); ALKALINE PHOSPHATASE 85 IU/L (46-116); ANION GAP 10 (8-16); ASPARTATE AMINO TRANSFERASE 21 U/L (10-37); BILIRUBIN,TOTAL 0.3 MG/DL (0.1-1.0); BLOOD UREA NITROGEN 18 MG/DL (7-18); CALCIUM 9.5 MG/DL (8.5-10.1); CHLORIDE 103 MMOL/L (99-107); CREATININE 1.63 MG/DL (0.60-1.10); GLUCOSE 95 MG/DL (70-104); POTASSIUM 4.2 MMOL/L (3.5-5.1); SODIUM 140 MMOL/L (135-145); TOTAL CARBON DIOXIDE 27.2 MMOL/L (24-32); TOTAL PROTEIN 7.7 G/DL (6.4-8.2); eGFR 43 ML/MIN
[2021-12-04] MEDS: docusate sod 100mg capsule PO SCH ×2 (07:05→19:19)
[2021-12-04] MEDS: OLANZAPINE 5 MG TABLET PO SCH (07:05)
[2021-12-04] MEDS: heparin, porcine 5000 units/ml vial SQ SCH ×2 (07:08→19:20)
[2021-12-04] MEDS: K and/or MAG REPLACEMENT MC SCH ×2 (08:00→18:46)
[2021-12-04 09:57] VITALS: BP 110/71
[2021-12-04 18:36] VITALS: BP 107/53
[2021-12-04] MEDS: olanzapine 10mg tablet PO SCH (19:19)
[2021-12-04] MEDS: tamsulosin 0.4mg capsule PO SCH (19:19)
[2021-12-04] MEDS: temazepam 15mg capsule PO PRN (22:10)
[2021-12-04 22:18] VITALS: BP 104/65
[2021-12-04] MEDS ORDERED: VANCOMYCIN LEVEL IV ONE (22:30)
[2021-12-05] MEDS: temazepam 15mg capsule PO PRN (00:32)
[2021-12-05] MEDS: LORazepam 1 MG tablet PO PRN (00:33)
[2021-12-05 06:00] VITALS: BP 91/60
--- NOTE | 2021-12-05 06:34 | NUR ---
Problems reprioritized. Patient report given, questions answered & plan of care reviewed with CLAY Albright.
--- NOTE | 2021-12-05 06:46 | NUR ---
Patient in room ORTHO 4010B. I have received report from CLAY SUAREZ and had the opportunity to ask questions and assume patient care.
[2021-12-05 06:56] LABS: ALANINE AMINOTRANSFERASE 24 U/L (12-78); ALBUMIN 2.9 G/DL (3.4-5.0); ALBUMIN/GLOBULIN RATIO 0.7 (1.1-1.5); ALKALINE PHOSPHATASE 73 IU/L (46-116); ANION GAP 7 (8-16); ASPARTATE AMINO TRANSFERASE 17 U/L (10-37); BILIRUBIN,TOTAL 0.4 MG/DL (0.1-1.0); BLOOD UREA NITROGEN 24 MG/DL (7-18); BUN/CREATININE RATIO 14.4 (5.4-32.0); CALCIUM 9.9 MG/DL (8.5-10.1); CHLORIDE 106 MMOL/L (99-107); CREATININE 1.67 MG/DL (0.60-1.10); GLUCOSE 83 MG/DL (70-104); POTASSIUM 3.9 MMOL/L (3.5-5.1); SODIUM 142 MMOL/L (135-145); TOTAL CARBON DIOXIDE 28.8 MMOL/L (24-32); eGFR 42 ML/MIN
--- NOTE | 2021-12-05 07:58 | NUR ---
Reassessment: Pt continues on Regular diet w/ occasional 25-50% intake though mostly 100% of meals, meeting est needs at this time. LBM 12/02 receiving routine bowel care. No change to recommendations at this time, will continue to monitor. Recs; 1. Continue Regular diet as tolerated 2. Smoothie WB, Shake WS 3. Bowel care per rx 4. Scaled wts Addendum: 12/05/21 at [address] Amended: Links added.
[2021-12-05] MEDS: K and/or MAG REPLACEMENT MC SCH ×2 (08:00→19:59)
[2021-12-05] MEDS: heparin, porcine 5000 units/ml vial SQ SCH ×2 (09:54→20:03)
[2021-12-05] MEDS: docusate sod 100mg capsule PO SCH ×2 (09:54→20:02)
[2021-12-05] MEDS: OLANZAPINE 5 MG TABLET PO SCH (09:54)
[2021-12-05 10:00] VITALS: BP 106/55
[2021-12-05] MEDS: HYDROcodone/acetaminophen 10/325mg tab PO PRN ×2 (15:46→20:02)
[2021-12-05 18:34] VITALS: BP 102/68
--- NOTE | 2021-12-05 19:11 | NUR ---
Problems reprioritized. Patient report given, questions answered & plan of care reviewed with DANIELA ANDRES.
[2021-12-05] MEDS: olanzapine 10mg tablet PO SCH (20:02)
[2021-12-05] MEDS: magnesium hydroxide 30ml (MOM) UD suspension PO PRN (20:08)
[2021-12-05] MEDS: tamsulosin 0.4mg capsule PO SCH (20:11)
[2021-12-05 22:00] VITALS: BP 114/75
[2021-12-06] MEDS: HYDROcodone/acetaminophen 10/325mg tab PO PRN ×4 (01:05→23:30)
[2021-12-06 06:00] VITALS: BP 121/68
--- NOTE | 2021-12-06 06:30 | NUR ---
Problems reprioritized. Patient report given, questions answered & plan of care reviewed with CLAY Albright.
--- NOTE | 2021-12-06 06:35 | NUR ---
Patient in room ORTHO 4010B. I have received report from DANIELA Almaraz RN and had the opportunity to ask questions and assume patient care.
[2021-12-06 06:54] LABS: ALANINE AMINOTRANSFERASE 24 U/L (12-78); ALBUMIN 3.2 G/DL (3.4-5.0); ALBUMIN/GLOBULIN RATIO 0.7 (1.1-1.5); ALKALINE PHOSPHATASE 76 IU/L (46-116); ANION GAP 7 (8-16); ASPARTATE AMINO TRANSFERASE 20 U/L (10-37); BILIRUBIN,TOTAL 0.5 MG/DL (0.1-1.0); BLOOD UREA NITROGEN 25 MG/DL (7-18); BUN/CREATININE RATIO 16.2 (5.4-32.0); CALCIUM 9.3 MG/DL (8.5-10.1); CHLORIDE 98 MMOL/L (99-107); CREATININE 1.54 MG/DL (0.60-1.10); GLUCOSE 100 MG/DL (70-104); POTASSIUM 3.9 MMOL/L (3.5-5.1); SODIUM 133 MMOL/L (135-145); TOTAL CARBON DIOXIDE 27.8 MMOL/L (24-32); TOTAL PROTEIN 7.5 G/DL (6.4-8.2); eGFR 46 ML/MIN
[2021-12-06] MEDS: docusate sod 100mg capsule PO SCH ×2 (08:00→19:43)
[2021-12-06] MEDS: OLANZAPINE 5 MG TABLET PO SCH (08:00)
[2021-12-06] MEDS: K and/or MAG REPLACEMENT MC SCH ×2 (08:00→19:12)
[2021-12-06] MEDS ORDERED: bisacodyl 10mg suppository rectal RC STA (08:43)
[2021-12-06 10:00] VITALS: BP 115/62
[2021-12-06] MEDS: olanzapine 10mg tablet PO SCH (10:31)
[2021-12-06] MEDS: heparin, porcine 5000 units/ml vial SQ SCH ×2 (10:33→19:43)
--- NOTE | 2021-12-06 19:06 | NUR ---
Problems reprioritized. Patient report given, questions answered & plan of care reviewed with CLAY HESS.
[2021-12-06] MEDS: tamsulosin 0.4mg capsule PO SCH (19:43)
[2021-12-06 22:00] VITALS: BP 95/62
[2021-12-07] MEDS: temazepam 15mg capsule PO PRN (01:06)
[2021-12-07] MEDS: HYDROcodone/acetaminophen 10/325mg tab PO PRN ×4 (05:11→21:10)
[2021-12-07 06:00] VITALS: BP 103/64
--- NOTE | 2021-12-07 06:41 | NUR ---
Problems reprioritized. Patient report given, questions answered & plan of care reviewed with CLAY HESS. Addendum: 12/07/21 at 0655 by Natalee Moreau RN I DID NOT GIVE REPORT I GOT REPORT
[2021-12-07] MEDS: K and/or MAG REPLACEMENT MC SCH ×2 (08:00→20:00)
[2021-12-07 08:27] LABS: ALANINE AMINOTRANSFERASE 23 U/L (12-78); ALBUMIN 3.3 G/DL (3.4-5.0); ALBUMIN/GLOBULIN RATIO 0.8 (1.1-1.5); ALKALINE PHOSPHATASE 75 IU/L (46-116); ANION GAP 11 (8-16); ASPARTATE AMINO TRANSFERASE 19 U/L (10-37); BILIRUBIN,TOTAL 0.5 MG/DL (0.1-1.0); BLOOD UREA NITROGEN 23 MG/DL (7-18); BUN/CREATININE RATIO 12.6 (5.4-32.0); CALCIUM 9.6 MG/DL (8.5-10.1); CHLORIDE 100 MMOL/L (99-107); CREATININE 1.82 MG/DL (0.60-1.10); GLUCOSE 85 MG/DL (70-104); POTASSIUM 4.1 MMOL/L (3.5-5.1); SODIUM 137 MMOL/L (135-145); TOTAL CARBON DIOXIDE 26.3 MMOL/L (24-32); TOTAL PROTEIN 7.5 G/DL (6.4-8.2); eGFR 38 ML/MIN
[2021-12-07] MEDS: heparin, porcine 5000 units/ml vial SQ SCH ×2 (09:47→21:09)
[2021-12-07] MEDS: OLANZAPINE 5 MG TABLET PO SCH (09:48)
[2021-12-07] MEDS: docusate sod 100mg capsule PO SCH ×2 (09:48→21:09)
[2021-12-07 10:00] VITALS: BP 114/67
[2021-12-07] MEDS ORDERED: OLAN5TAB75 PO (10:23)
[2021-12-07] MEDS ORDERED: OLAN10TA73 PO (10:23)
--- NOTE | 2021-12-07 18:35 | NUR ---
Patient in room ORTHO 4008. I have received report from Natalee WILLIAMSON and had the opportunity to ask questions and assume patient care. Addendum: 12/07/21 at 1918 by Ally Arrington RN Amended: Links added.
--- NOTE | 2021-12-07 19:30 | NUR ---
Pt. awake A & O at this time -cooperative with care. Back brace in place encouraged pt. to wear the [place] collar. Call light in place and bed in low position. Sitter in place for pt's safety. Addendum: 12/08/21 at 0129 by Ally Arrington RN Amended: Links added.
--- NOTE | 2021-12-07 19:49 | NUR ---
Problems reprioritized. Patient report given, questions answered & plan of care reviewed with CLAY BEAVER.
[2021-12-07] MEDS ORDERED: olanzapine 10mg tablet PO SCH (21:00)
[2021-12-07] MEDS: tamsulosin 0.4mg capsule PO SCH (21:09)
[2021-12-07] MEDS ORDERED: OLANZAPINE 5 MG TABLET PO ONE (21:20)
[2021-12-08] MEDS: HYDROcodone/acetaminophen 10/325mg tab PO PRN ×2 (01:38→09:48)
[2021-12-08 06:00] VITALS: BP 95/55
--- NOTE | 2021-12-08 06:25 | NUR ---
Problems reprioritized. Patient report given, questions answered & plan of care reviewed with Tesha WILLIAMSON. Addendum: 12/08/21 at 0648 by Ally Arrington RN Amended: Links added.
--- NOTE | 2021-12-08 06:31 | NUR ---
Patient in room ORTHO 4010. I have received report from Ally WILLIAMSON and had the opportunity to ask questions and assume patient care.
[2021-12-08 07:17] LABS: ALANINE AMINOTRANSFERASE 20 U/L (12-78); ALBUMIN 2.8 G/DL (3.4-5.0); ALBUMIN/GLOBULIN RATIO 0.8 (1.1-1.5); ALKALINE PHOSPHATASE 74 IU/L (46-116); ANION GAP 12 (8-16); ASPARTATE AMINO TRANSFERASE 20 U/L (10-37); BILIRUBIN,TOTAL 0.2 MG/DL (0.1-1.0); BLOOD UREA NITROGEN 25 MG/DL (7-18); CALCIUM 9.1 MG/DL (8.5-10.1); CHLORIDE 100 MMOL/L (99-107); CREATININE 1.67 MG/DL (0.60-1.10); GLUCOSE 83 MG/DL (70-104); POTASSIUM 4.4 MMOL/L (3.5-5.1); SODIUM 139 MMOL/L (135-145); TOTAL CARBON DIOXIDE 27.5 MMOL/L (24-32); TOTAL PROTEIN 6.5 G/DL (6.4-8.2); eGFR 42 ML/MIN
[2021-12-08] MEDS: K and/or MAG REPLACEMENT MC SCH (08:00)
[2021-12-08] MEDS: docusate sod 100mg capsule PO SCH (08:00)
[2021-12-08] MEDS: heparin, porcine 5000 units/ml vial SQ SCH (08:00)
[2021-12-08] MEDS: OLANZAPINE 5 MG TABLET PO SCH (08:00)
[2021-12-08 10:00] VITALS: BP 97/56
--- NOTE | 2021-12-08 17:30 | NUR ---
Patient discharged at this time with sister, but patient sister did not get here until 183 because patient told her not to come until 183 even though I said come at 1730. Patient discharged with all of his multiple belongings. Meds called into [facility] on [address].
[2021-12-10] MEDS ORDERED: OLAN10TA73 PO ×2 (11:24)
[2021-12-10] MEDS ORDERED: OLAN5TAB29 PO ×2 (11:24)
== END 2021-12-08 17:20 | disposition home or self-care (01) | DRG 698 ==
LOC: ER 14:13 → ED HOLD 17:03 → ORTHO 4S 11-22 13:40
PROVIDERS: ADMIT Family Medicine; ATTEND Family Medicine
PROC: 0T9B70Z Drainage of Bladder with Drainage Device, Via Natural or Artificial Opening (ICD-10-PCS; principal; 2021-12-05)
DX: T83.511A Infection and inflammatory reaction due to indwelling urethral catheter, initial encounter (principal); G93.41 Metabolic encephalopathy; N17.0 Acute kidney failure with tubular necrosis; E87.1 Hypo-osmolality and hyponatremia; F20.0 Paranoid schizophrenia; Z16.24 Resistance to multiple antibiotics; N13.8 Other obstructive and reflux uropathy; N39.0 Urinary tract infection, site not specified; B95.62 Methicillin resistant Staphylococcus aureus infection as the cause of diseases classified elsewhere; B96.4 Proteus (mirabilis) (morganii) as the cause of diseases classified elsewhere; R73.9 Hyperglycemia, unspecified; K59.00 Constipation, unspecified; Z20.822 Contact with and (suspected) exposure to COVID-19; D64.9 Anemia, unspecified; N40.1 Benign prostatic hyperplasia with lower urinary tract symptoms; E87.6 Hypokalemia; R60.0 Localized edema; F32.A Depression, unspecified; N18.30 Chronic kidney disease, stage 3 unspecified; N28.1 Cyst of kidney, acquired; N32.3 Diverticulum of bladder; Y84.6 Urinary catheterization as the cause of abnormal reaction of the patient, or of later complication, without mention of misadventure at the time of the procedure; Z79.899 Other long term (current) drug therapy; Z87.891 Personal history of nicotine dependence; Z98.1 Arthrodesis status; Y92.89 Other specified places as the place of occurrence of the external cause
CPT/HCPCS: 36415; 70450; 71045; 74176; 80053; 80202; 80305; 80320; 81001; 82140; 83036; 83605; 83735; 83880; 84100; 84145; 84443; 85025; 85610; 85730; 87040; 87077; 87081; 87088; 87186; 96374; 97110; 97116; 97161; 97530; 99285; A4314; A4349; A5200; A6213; C1758; G0378; J0695; J0696; J1644; J2060; J3370; J3490; J7030; J7040

== ENCOUNTER 2021-12-11 12:32 | Emergency (ER) | payer MEDICARE, MEDICAID ==
[~2021-12-11] VITALS: Ht 175.3 cm; Wt 56.8 kg
[~2021-12-11 12:32] MED LIST: DOCU-171 PO; FLO0.4C; OLAN10TA73 PO; OLAN5TAB29 PO
[2021-12-11 13:19] LABS: BASOPHILS % (AUTO) 0.2 % (0-1); EOSINOPHILS % (AUTO) 0.1 % (0-6); HEMATOCRIT 26.3 % (42.0-52.0); HEMOGLOBIN 8.9 g/dl (14.0-17.9); LYMPHOCYTES % (AUTO) 16.3 % (21-51); MEAN CORPUSCULAR HEMOGLOBIN 30.9 PG (27.0-31.0); MEAN CORPUSCULAR HGB CONC 33.7 g/dL (33.0-36.5); MEAN CORPUSCULAR VOLUME 91.7 FL (78-98); MEAN PLATELET VOLUME 7.5 FL (7.4-10.4); MONOCYTES # (AUTO) 1.1 X10'3 (0-0.9); MONOCYTES % (AUTO) 17.2 % (2-12); NEUTROPHILS # (AUTO) 4.1 X10'3 (1.8-7.7); NEUTROPHILS % (AUTO) 66.2 % (42-75); PLATELET COUNT 235 X10'3 (140-440); RED BLOOD COUNT 2.87 X10'6 (4.70-6.10); RED CELL DISTRIBUTION WIDTH 13.7 % (11.5-14.5); WHITE BLOOD COUNT 6.1 X10'3 (4.5-11.0)
[2021-12-11 13:35] LABS: ALANINE AMINOTRANSFERASE 25 U/L (12-78); ALBUMIN 3.1 G/DL (3.4-5.0); ALBUMIN/GLOBULIN RATIO 0.8 (1.1-1.5); ALKALINE PHOSPHATASE 74 IU/L (46-116); ANION GAP 8 (8-16); ASPARTATE AMINO TRANSFERASE 20 U/L (10-37); BILIRUBIN,TOTAL 0.5 MG/DL (0.1-1.0); BLOOD UREA NITROGEN 30 MG/DL (7-18); BUN/CREATININE RATIO 16.6 (5.4-32.0); CALCIUM 9.2 MG/DL (8.5-10.1); CHLORIDE 101 MMOL/L (99-107); CREATININE 1.81 MG/DL (0.60-1.10); GLUCOSE 101 MG/DL (70-104); POTASSIUM 3.8 MMOL/L (3.5-5.1); SODIUM 135 MMOL/L (135-145); TOTAL CARBON DIOXIDE 26.5 MMOL/L (24-32); TOTAL PROTEIN 7.2 G/DL (6.4-8.2); eGFR 38 ML/MIN
[2021-12-11 13:37] LABS: ETHANOL < 0.010 GM/DL (0.0-0.010)
[2021-12-11 13:43] LABS: URINE AMPHETAMINE SCREEN NEGATIVE (Neg); URINE BARBITUATE SCREEN NEGATIVE (Neg); URINE BENZODIAZEPINES SCREEN NEGATIVE (Neg); URINE CANNABINOID SCREEN NEGATIVE (Neg); URINE COCAINE SCREEN NEGATIVE (Neg); URINE METHADONE SCREEN NEGATIVE (Neg); URINE OPIATE SCREEN NEGATIVE (Neg); URINE PHENCYCLIDINE SCREEN NEGATIVE (Neg)
--- NOTE | 2021-12-11 16:31 | NUR ---
Patient observed sitting at the edge of the stretcher, to get out of bed and walk without cane or walker. Patient assisted back into the bed without issue. No signs of distress noted. Will continue to monitor.
[2021-12-11] MEDS ORDERED: HYDR-3965 PO (16:47)
[2021-12-11] MEDS ORDERED: OLAN5TAB75 PO (16:47)
--- NOTE | 2021-12-11 18:12 | NUR ---
megan sent packet to [facility].
--- NOTE | 2021-12-11 20:00 | NUR ---
One to one with the patient. He becomes upset when talking about his sister and he believes she is a danger to him. He denies thoughts to harm himself. Attempted to get a mental health history from him but he denies that he has ever been diagnoised with a mental illness. When asked why he is here he stated that he is here to get away from his sister. When asked if he is hearing voices he stated "I talk to God"
[2021-12-11] MEDS ORDERED: OLAN5TAB3 PO (20:06)
[2021-12-11] MEDS ORDERED: OLANZapine 2.5MG tablet PO ONE (20:45)
[2021-12-11] MEDS ORDERED: OLANZapine 5mg rapidly disint. tablet PO ONE (20:50)
--- NOTE | 2021-12-11 21:42 | NUR ---
The patient yelling out but may have been having a dream.
--- NOTE | 2021-12-11 23:08 | NUR ---
The patient is restless and up and down out of bed
--- NOTE | 2021-12-12 00:14 | NUR ---
The patient appears to be sleeping
--- NOTE | 2021-12-12 01:04 | NUR ---
The patient is awake off and on. Came up to the nursing station and stated that he was going to jump off the roof of the hospital with a parachute and a hang glider. He was directed back to his bed.
[2021-12-12] MEDS ORDERED: LORazepam 0.5 MG tablet PO ONE (01:20)
--- NOTE | 2021-12-12 01:25 | NUR ---
Dr. Vargas made aware that the patient is not sleeping and orders received.
--- NOTE | 2021-12-12 01:50 | NUR ---
The patient appears to be sleeping
--- NOTE | 2021-12-12 02:48 | NUR ---
The patient is awake and talking to himself
--- NOTE | 2021-12-12 02:53 | NUR ---
pt uncooperative when asked to stay in bed throughout the middle of the night. pt is redirected multiple times. pt is speaking very loudly after being asked to quiet down. pt is incomprehensable
[2021-12-12] MEDS ORDERED: LORazepam 1 MG tablet PO ONE (03:50)
--- NOTE | 2021-12-12 03:51 | NUR ---
The patient is very irritable and limitedly cooperative. MD made aware and order received.
--- NOTE | 2021-12-12 04:35 | NUR ---
The patient is wakeful. He is one to one with staff
--- NOTE | 2021-12-12 05:02 | NUR ---
The patient pears to be sleeping
--- NOTE | 2021-12-12 05:25 | NUR ---
The patient was up to use the bathroom and got up off the toilet and appeared the have fallen on his right side. He was assisted up and back to bed he denies that he hit his head or had any pain or injuries.
--- NOTE | 2021-12-12 05:29 | NUR ---
Dr. Vargas made aware of patient fall
--- NOTE | 2021-12-12 05:31 | NUR ---
Call to [facility] and requested a med eval for the patient.
--- NOTE | 2021-12-12 06:30 | NUR ---
Assumed patient care at this time. Patient is resting on bed comfortably.
--- NOTE | 2021-12-12 08:13 | NUR ---
Emptied 600 ml from urine bag.
--- NOTE | 2021-12-12 10:00 | NUR ---
patient awake in bed, cooperative. ambulates to restroom with walker.
--- NOTE | 2021-12-12 12:00 | NUR ---
patient awake in bed, cooperative. ambulates to restroom with walker.
--- NOTE | 2021-12-12 12:30 | NUR ---
Patient ate lunch.
--- NOTE | 2021-12-12 14:00 | NUR ---
patient awake in bed, cooperative. ambulates to restroom with walker.
[2021-12-12] MEDS: ibuprofen 200mg tablet PO PRN (15:15)
--- NOTE | 2021-12-12 16:00 | NUR ---
patient awake in bed, cooperative. ambulates to restroom with walker.
--- NOTE | 2021-12-12 18:00 | NUR ---
Patient ate dinner
--- NOTE | 2021-12-12 20:00 | NUR ---
The patient has been friendly and pleasant. He denies that he wants to hurt himself or others. Clarified zyprexa dose with Dr. Rodriguez and patient was made aware of new dose. He is well groomed. He does not appear distracted by internal stimuli.
[2021-12-12] MEDS ORDERED: OLANZAPINE 5 MG TABLET PO SCH (21:00)
[2021-12-12] MEDS ORDERED: OLANZapine 2.5MG tablet PO SCH (21:00)
--- NOTE | 2021-12-12 21:00 | NUR ---
The patient is resting on her bed.
--- NOTE | 2021-12-12 21:10 | NUR ---
PATIENT'S FAMILY MEMBER BROUGHT IN A YELLOW SUITCASE.
--- NOTE | 2021-12-12 22:22 | NUR ---
The patient up to use the bathroom.
--- NOTE | 2021-12-12 23:42 | NUR ---
The patient up to use the bathroom.
[2021-12-13] MEDS: ibuprofen 200mg tablet PO PRN ×2 (00:20→13:26)
--- NOTE | 2021-12-13 01:05 | NUR ---
The patient appears to be sleeping
--- NOTE | 2021-12-13 02:13 | NUR ---
The patient is wide awake and in and out of the bathroom
--- NOTE | 2021-12-13 03:50 | NUR ---
The patient is up and in the bathroom which he has done repeatedly throughout the night.
--- NOTE | 2021-12-13 04:44 | NUR ---
The patient up to use the bathroom.
[2021-12-13] MEDS ORDERED: acetaminophen 325mg tablet PO ONE (04:50)
--- NOTE | 2021-12-13 05:12 | NUR ---
The patient in and out of the bathroom because he believes his back pain is caused by the need to have a bowel movement. He had two BMs yesterday. He was given tylenol for back pain. He has been pleasant. He is more steady on his feet tonight with the lower dose of zypexa. He has only had 3 hours of broken sleep. Each time he returns to his bed he rapidly turns his light off and on. He is making delusional statements about his ability to read thoughts because he is getting more sensitive as he ages.
--- NOTE | 2021-12-13 06:30 | NUR ---
Patient appears to be sleeping.
--- NOTE | 2021-12-13 06:44 | NUR ---
Assumed patient care at this time. Patient laying down on bed.
--- NOTE | 2021-12-13 07:00 | NUR ---
Patient appears to be sleeping.
--- NOTE | 2021-12-13 08:15 | NUR ---
Patient given meal tray.
--- NOTE | 2021-12-13 08:30 | NUR ---
Patient is eating meal tray.
--- NOTE | 2021-12-13 09:00 | NUR ---
Patient ambulated to restroom with walker.
--- NOTE | 2021-12-13 09:00 | NUR ---
Patient is cooperative, pleasant, friendly.
--- NOTE | 2021-12-13 09:30 | NUR ---
Patient ate breakfast.
--- NOTE | 2021-12-13 09:38 | NUR ---
Patient is cooperative, pleasant, friendly.
--- NOTE | 2021-12-13 10:08 | NUR ---
Sears bag changed, previuos bag was leaking.
--- NOTE | 2021-12-13 10:15 | NUR ---
Patient ambulated to restroom with walker.
--- NOTE | 2021-12-13 11:00 | NUR ---
Patient is awake and walking around. Addendum: 12/13/21 at 1235 by MARBELLA with walker
--- NOTE | 2021-12-13 11:05 | NUR ---
Patient is cooperative, pleasant, friendly.
--- NOTE | 2021-12-13 12:00 | NUR ---
Patient is cooperative, pleasant, friendly.
--- NOTE | 2021-12-13 12:38 | NUR ---
Patient ambulated to restroom with stretcher. Addendum: 12/13/21 at 1239 by MARBELLA Patient ambulated to restroom with walker.
[2021-12-13 15:25] VITALS: BP 120/71
--- NOTE | 2021-12-13 15:26 | NUR ---
Patient taken to front of hospital sister Beverly here to pick him up. Sopcioal worker Sirena and mental health provider donna Reyna. Patient is plesant and happy to go home.
== END 2021-12-13 15:29 ==
LOC: ER 12:32
DX: F29 Unspecified psychosis not due to a substance or known physiological condition (principal); Z20.822 Contact with and (suspected) exposure to COVID-19; R45.850 Homicidal ideations; F32.A Depression, unspecified; F17.210 Nicotine dependence, cigarettes, uncomplicated; Z79.899 Other long term (current) drug therapy
CPT/HCPCS: 80053; 80305; 80320; 85025; 87811; 99285; A4357; A5200

== ENCOUNTER 2021-12-25 02:37 | Inpatient (IN) | payer MEDICARE, MEDICAID ==
[~2021-12-25] VITALS: Ht 175.3 cm; Wt 65.9 kg
[~2021-12-25 02:37] MED LIST changes: -DOCU-171 PO; -FLO0.4C; -OLAN10TA73 PO; -OLAN5TAB29 PO; +OLAN5TAB3 PO
[2021-12-25] MEDS ORDERED: antivenin, crotalidae fab inj 6 VIAL in normal saline 250ml IV soln 250 ML IV SCH ×2 (02:55)
[2021-12-25] MEDS ORDERED: TETanus/Pertussis (Acell)/Diphther VAC/PF (Tdap-Adult) 0.5ml syringe IMVAC ONE (02:55)
[2021-12-25] MEDS ORDERED: acetaminophen 325mg tablet PO ONE (03:45)
[2021-12-25] MEDS ORDERED: antivenin, crotalidae fab inj 6 VIAL in normal saline 250ml IV soln 250 ML IV ONE ×2 (03:53)
[2021-12-25] MEDS ORDERED: OLAN5TAB75 PO (04:22)
[2021-12-25] MEDS ORDERED: FLO0.4C PO (04:22)
[2021-12-25] MEDS ORDERED: ACET-890 PO (04:24)
[2021-12-25 04:26] LABS: BASOPHILS % (AUTO) 0.4 % (0-1); EOSINOPHILS % (AUTO) 0.1 % (0-6); LYMPHOCYTES # (AUTO) 1.9 X10'3 (1.1-4.8); MEAN CORPUSCULAR HEMOGLOBIN 31.5 PG (27.0-31.0); MEAN CORPUSCULAR HGB CONC 34.6 g/dL (33.0-36.5); MEAN CORPUSCULAR VOLUME 91.1 FL (78-98); MEAN PLATELET VOLUME 7.9 FL (7.4-10.4); MONOCYTES # (AUTO) 0.7 X10'3 (0-0.9); MONOCYTES % (AUTO) 9.5 % (2-12); NEUTROPHILS # (AUTO) 5.2 X10'3 (1.8-7.7); PLATELET COUNT 262 X10'3 (140-440); RED BLOOD COUNT 3.19 X10'6 (4.70-6.10); RED CELL DISTRIBUTION WIDTH 14.7 % (11.5-14.5); WHITE BLOOD COUNT 7.9 X10'3 (4.5-11.0)
[2021-12-25 04:27] LABS: ALANINE AMINOTRANSFERASE 19 U/L (12-78); ALBUMIN 3.4 G/DL (3.4-5.0); ALBUMIN/GLOBULIN RATIO 0.9 (1.1-1.5); ALKALINE PHOSPHATASE 84 IU/L (46-116); ANION GAP 9 (8-16); ASPARTATE AMINO TRANSFERASE 18 U/L (10-37); BILIRUBIN,TOTAL 0.2 MG/DL (0.1-1.0); BLOOD UREA NITROGEN 23 MG/DL (7-18); BUN/CREATININE RATIO 12.9 (5.4-32.0); CALCIUM 8.9 MG/DL (8.5-10.1); CHLORIDE 104 MMOL/L (99-107); CREATININE 1.78 MG/DL (0.60-1.10); GLUCOSE 131 MG/DL (70-104); POTASSIUM 4.1 MMOL/L (3.5-5.1); SODIUM 139 MMOL/L (135-145); TOTAL CARBON DIOXIDE 25.9 MMOL/L (24-32); TOTAL PROTEIN 7.1 G/DL (6.4-8.2); eGFR 39 ML/MIN
[2021-12-25 04:30] LABS: APTT 26 SECONDS (22-32)
[2021-12-25] MEDS ORDERED: potassium CL 10mEq/100ml bag 100 ML IV PRN (04:45)
[2021-12-25] MEDS ORDERED: POTASSIUM BICARB 20meq eff tab 20 MEQ TABLET.EFF PO PRN ×2 (04:45)
[2021-12-25] MEDS ORDERED: acetaminophen 325mg tablet PO PRN (04:45)
[2021-12-25] MEDS ORDERED: mag hydrox/Alum hydrox/simeth 30ml oral suspension PO PRN (04:45)
[2021-12-25] MEDS ORDERED: magnesium Cl slow-release 64mg tablet PO PRN (04:45)
[2021-12-25] MEDS ORDERED: magnesium hydroxide 30ml (MOM) UD suspension PO PRN (04:45)
[2021-12-25] MEDS ORDERED: ondansetron/PF 4mg/2ml inj IV PRN (04:45)
[2021-12-25] MEDS ORDERED: magnesium 4gm in 100ml NS 100 ML IV PRN (04:45)
[2021-12-25] MEDS ORDERED: HYDROcodone/acetaminophen 5mg/325mg tablet PO PRN (04:45)
[2021-12-25] MEDS ORDERED: magnesium 2GM in 50ml NS 50 ML IV PRN (04:45)
[2021-12-25] MEDS ORDERED: ACETAMINOPHEN PO PRN (05:00)
[2021-12-25 05:08] LABS: MAGNESIUM 1.9 MG/DL (1.5-2.4)
[2021-12-25] MEDS: normal saline 1000ml 1,000 ML IV SCH ×3 (07:11→18:04)
--- NOTE | 2021-12-25 07:50 | NUR ---
patient alert and oriented with no complaints at this time, comfortable in bed
[2021-12-25 08:14] LABS: BASOPHILS % (AUTO) 0.5 % (0-1); EOSINOPHILS % (AUTO) 0.1 % (0-6); HEMATOCRIT 29.1 % (42.0-52.0); HEMOGLOBIN 9.8 g/dl (14.0-17.9); LYMPHOCYTES # (AUTO) 1.5 X10'3 (1.1-4.8); LYMPHOCYTES % (AUTO) 21.2 % (21-51); MEAN CORPUSCULAR HGB CONC 33.8 g/dL (33.0-36.5); MEAN CORPUSCULAR VOLUME 91.8 FL (78-98); MEAN PLATELET VOLUME 6.9 FL (7.4-10.4); MONOCYTES # (AUTO) 0.7 X10'3 (0-0.9); MONOCYTES % (AUTO) 9.8 % (2-12); NEUTROPHILS # (AUTO) 4.8 X10'3 (1.8-7.7); NEUTROPHILS % (AUTO) 68.4 % (42-75); PLATELET COUNT 271 X10'3 (140-440); RED BLOOD COUNT 3.17 X10'6 (4.70-6.10); RED CELL DISTRIBUTION WIDTH 15.3 % (11.5-14.5)
[2021-12-25] MEDS: K and/or MAG REPLACEMENT MC SCH ×2 (10:07→19:26)
[2021-12-25] MEDS: tamsulosin 0.4mg capsule PO SCH (10:17)
[2021-12-25] MEDS: docusate sod 100mg capsule PO SCH ×2 (10:17→21:19)
[2021-12-25] MEDS: heparin, porcine 5000 units/ml vial SQ SCH ×2 (10:17→21:20)
[2021-12-25] MEDS: OLANZAPINE 5 MG TABLET PO SCH (10:17)
[2021-12-25 10:29] LABS: APTT 28 SECONDS (22-32)
--- NOTE | 2021-12-25 12:05 | NUR ---
report given to floor at this time
[2021-12-25 12:15] VITALS: BP 107/63
[2021-12-25 12:27] LABS: BASOPHILS % (AUTO) 0.2 % (0-1); EOSINOPHILS % (AUTO) 0.1 % (0-6); HEMATOCRIT 29.9 % (42.0-52.0); HEMOGLOBIN 10.3 g/dl (14.0-17.9); LYMPHOCYTES # (AUTO) 1.2 X10'3 (1.1-4.8); LYMPHOCYTES % (AUTO) 17.3 % (21-51); MEAN CORPUSCULAR HEMOGLOBIN 31.8 PG (27.0-31.0); MEAN CORPUSCULAR HGB CONC 34.5 g/dL (33.0-36.5); MEAN CORPUSCULAR VOLUME 92.2 FL (78-98); MEAN PLATELET VOLUME 7.1 FL (7.4-10.4); MONOCYTES # (AUTO) 0.6 X10'3 (0-0.9); MONOCYTES % (AUTO) 8.5 % (2-12); NEUTROPHILS # (AUTO) 5.3 X10'3 (1.8-7.7); NEUTROPHILS % (AUTO) 73.9 % (42-75); PLATELET COUNT 274 X10'3 (140-440); RED BLOOD COUNT 3.24 X10'6 (4.70-6.10); RED CELL DISTRIBUTION WIDTH 15.2 % (11.5-14.5); WHITE BLOOD COUNT 7.1 X10'3 (4.5-11.0)
--- NOTE | 2021-12-25 13:00 | NUR ---
circumference of ankle, lower extremity with no change 23cm, decreased redness
[2021-12-25] MEDS: DOXYCYCLINE 100MG CAPSULE PO SCH ×2 (13:33→21:19)
[2021-12-25 15:00] VITALS: BP 118/61
--- NOTE | 2021-12-25 15:00 | NUR ---
circumference of ankle, lower extremity with no change 23cm, decreased redness
--- NOTE | 2021-12-25 17:00 | NUR ---
circumference of ankle, lower extremity with no change 23cm, decreased redness
--- NOTE | 2021-12-25 17:02 | NUR ---
[facility] CALLED AND STATED THAT IF THERE WAS NO CHANGE, THAT THE PATIENT COULD BE DISCHARGED 24 HOURS AFTER RECEIVING THE ANTIVENOM AND TO GET REPEAT LABS IN A COUPLE DAYS. THEY STATED THAT THEY WOULD CALL BACK AGAIN TOMORROW.
[2021-12-25] MEDS ORDERED: DOXY-224 PO (17:35)
[2021-12-25 18:00] VITALS: BP 115/73
--- NOTE | 2021-12-25 18:25 | NUR ---
Patient in room PCU 3014. I have received report from Virginie WILLIAMSON and had the opportunity to ask questions and assume patient care.
--- NOTE | 2021-12-25 18:30 | NUR ---
Report given to Lena WILLIAMSON, pt staying until AM for repeat labs, no change in swelling or wound at this time. Above ankle circumference remains at 23cm
[2021-12-25 20:17] LABS: ALANINE AMINOTRANSFERASE 22 U/L (12-78); ALBUMIN 3.4 G/DL (3.4-5.0); ALBUMIN/GLOBULIN RATIO 0.9 (1.1-1.5); ALKALINE PHOSPHATASE 71 IU/L (46-116); ANION GAP 10 (8-16); ASPARTATE AMINO TRANSFERASE 24 U/L (10-37); BILIRUBIN,TOTAL 0.3 MG/DL (0.1-1.0); BLOOD UREA NITROGEN 22 MG/DL (7-18); BUN/CREATININE RATIO 14.9 (5.4-32.0); CALCIUM 8.6 MG/DL (8.5-10.1); CHLORIDE 105 MMOL/L (99-107); CREATININE 1.48 MG/DL (0.60-1.10); GLUCOSE 125 MG/DL (70-104); POTASSIUM 4.1 MMOL/L (3.5-5.1); SODIUM 142 MMOL/L (135-145); TOTAL CARBON DIOXIDE 27.4 MMOL/L (24-32); TOTAL PROTEIN 7.4 G/DL (6.4-8.2); eGFR 48 ML/MIN
[2021-12-25] MEDS ORDERED: OLANZAPINE 5 MG TABLET PO SCH (21:00)
[2021-12-25 22:00] VITALS: BP 112/68
[2021-12-25] MEDS: HYDROcodone/acetaminophen 10/325mg tab PO PRN (23:16)
[2021-12-26 02:00] VITALS: BP 102/63
[2021-12-26] MEDS: HYDROcodone/acetaminophen 10/325mg tab PO PRN (04:05)
--- NOTE | 2021-12-26 04:15 | NUR ---
AGREE WITH TUNNEL MAN PHYSICAL ASSESSMENT CHARTED
[2021-12-26 06:00] VITALS: BP 117/66
--- NOTE | 2021-12-26 06:35 | NUR ---
Problems reprioritized. Patient report given, questions answered & plan of care reviewed with Virginie WILLIAMSON.
[2021-12-26 06:54] LABS: BASOPHILS % (AUTO) 0.1 % (0-1); EOSINOPHILS % (AUTO) 0 % (0-6); HEMATOCRIT 30.2 % (42.0-52.0); HEMOGLOBIN 10.2 g/dl (14.0-17.9); LYMPHOCYTES # (AUTO) 0.6 X10'3 (1.1-4.8); LYMPHOCYTES % (AUTO) 7.4 % (21-51); MEAN CORPUSCULAR HEMOGLOBIN 31.3 PG (27.0-31.0); MEAN CORPUSCULAR HGB CONC 33.8 g/dL (33.0-36.5); MEAN CORPUSCULAR VOLUME 92.5 FL (78-98); MEAN PLATELET VOLUME 7.6 FL (7.4-10.4); MONOCYTES # (AUTO) 0.3 X10'3 (0-0.9); MONOCYTES % (AUTO) 3.8 % (2-12); NEUTROPHILS # (AUTO) 7.1 X10'3 (1.8-7.7); NEUTROPHILS % (AUTO) 88.7 % (42-75); PLATELET COUNT 264 X10'3 (140-440); RED BLOOD COUNT 3.26 X10'6 (4.70-6.10); RED CELL DISTRIBUTION WIDTH 15.6 % (11.5-14.5)
[2021-12-26 07:15] LABS: ALANINE AMINOTRANSFERASE 21 U/L (12-78); ALBUMIN 3.2 G/DL (3.4-5.0); ALBUMIN/GLOBULIN RATIO 0.9 (1.1-1.5); ALKALINE PHOSPHATASE 62 IU/L (46-116); ANION GAP 9 (8-16); ASPARTATE AMINO TRANSFERASE 19 U/L (10-37); BILIRUBIN,TOTAL 0.6 MG/DL (0.1-1.0); BLOOD UREA NITROGEN 19 MG/DL (7-18); BUN/CREATININE RATIO 13.5 (5.4-32.0); CALCIUM 8.7 MG/DL (8.5-10.1); CHLORIDE 107 MMOL/L (99-107); CREATININE 1.41 MG/DL (0.60-1.10); GLUCOSE 86 MG/DL (70-104); POTASSIUM 3.8 MMOL/L (3.5-5.1); SODIUM 141 MMOL/L (135-145); TOTAL CARBON DIOXIDE 25.1 MMOL/L (24-32); TOTAL PROTEIN 6.9 G/DL (6.4-8.2); eGFR 51 ML/MIN
[2021-12-26] MEDS: DOXYCYCLINE 100MG CAPSULE PO SCH (07:21)
[2021-12-26] MEDS: tamsulosin 0.4mg capsule PO SCH (07:21)
[2021-12-26] MEDS: normal saline 1000ml 1,000 ML IV SCH (07:21)
[2021-12-26] MEDS: docusate sod 100mg capsule PO SCH (07:21)
[2021-12-26] MEDS: OLANZAPINE 5 MG TABLET PO SCH (07:21)
[2021-12-26] MEDS: heparin, porcine 5000 units/ml vial SQ SCH (07:23)
[2021-12-26] MEDS: K and/or MAG REPLACEMENT MC SCH (07:24)
--- NOTE | 2021-12-26 15:20 | NUR ---
Patient discharged home via cab. Sister was difficult to initially get ahold of and then once we got ahold of her she didn't want to filler picker patient due to both his existing medical/psyc issues and her own not feeling well today due to shingles? It took multiple calls by nursing and case management to come up with a plan and for the sister to finally agree to him coming home. She asked Linda WILLIAMSON, nurse case management, that we send him home via cab and she will be there to help him get out of the cab when he gets home. Patients IV was taken out, tele monitor removed, patient states understanding of discharge instructions and to follow up with pcp for labs and come back to ER if there is any trouble. He also chose [facility] to get his [facility]x filled due to his regular [facility] not being staffed with a pharmacist today. No meds in pharmacy. No change in swelling or redness in legs, no distress or current con concerns.
== END 2021-12-26 15:20 | disposition home or self-care (01) | DRG 917 ==
LOC: ER 02:38 → ED HOLD 04:48 → EDBEDREQ 05:09 → PCU 3S 12:15
PROVIDERS: ADMIT Internal Medicine; ATTEND Internal Medicine
PROC: 3E0234Z Introduction of Serum, Toxoid and Vaccine into Muscle, Percutaneous Approach (ICD-10-PCS; principal; 2021-12-25)
DX: T63.011A Toxic effect of rattlesnake venom, accidental (unintentional), initial encounter (principal); N17.0 Acute kidney failure with tubular necrosis; D64.9 Anemia, unspecified; F20.9 Schizophrenia, unspecified; G89.29 Other chronic pain; N18.30 Chronic kidney disease, stage 3 unspecified; F29 Unspecified psychosis not due to a substance or known physiological condition; F32.A Depression, unspecified; M54.2 Cervicalgia; M54.9 Dorsalgia, unspecified; Z87.891 Personal history of nicotine dependence; Y92.89 Other specified places as the place of occurrence of the external cause; Z23 Encounter for immunization; Z79.899 Other long term (current) drug therapy
CPT/HCPCS: 36415; 80053; 83735; 85025; 85384; 85610; 85730; 87081; 90715; 99285; G0378; J0840; J1644; J7030; J7050

== ENCOUNTER 2022-01-19 15:09 | Emergency (ER) | payer MEDICARE, MEDICAID ==
[~2022-01-19] VITALS: Ht 175.3 cm; Wt 54.5 kg
[~2022-01-19 15:09] MED LIST changes: +ACET-890 PO; +DOXY-224 PO; +FLO0.4C PO; +OLAN5TAB75 PO
[2022-01-19 15:17] VITALS: BP 110/63
== END 2022-01-19 20:38 | disposition left against medical advice (07) ==
LOC: ER 15:09
DX: T83.89XA Other specified complication of genitourinary prosthetic devices, implants and grafts, initial encounter (principal); Z53.21 Procedure and treatment not carried out due to patient leaving prior to being seen by health care provider

== ENCOUNTER 2022-01-20 13:05 | Emergency (ER) | payer MEDICARE, MEDICAID ==
[~2022-01-20] VITALS: Ht 175.3 cm; Wt 54.0 kg
[2022-01-20 13:30] VITALS: BP 107/65
== END 2022-01-20 16:34 | disposition home or self-care (01) ==
LOC: ER 13:05
DX: T83.028A Displacement of other urinary catheter, initial encounter (principal); F31.9 Bipolar disorder, unspecified; F20.9 Schizophrenia, unspecified; F17.200 Nicotine dependence, unspecified, uncomplicated; Z91.030 Bee allergy status; Z79.899 Other long term (current) drug therapy
CPT/HCPCS: 99281

== ENCOUNTER 2022-01-27 02:56 | Emergency (ER) | payer MEDICARE, MEDICAID ==
[~2022-01-27] VITALS: Ht 175.3 cm; Wt 54.5 kg
[2022-01-27 03:03] VITALS: BP 96/61
[2022-01-27] MEDS ORDERED: LIDOcaine 2% 10ml TOPICAL JELLY (Urojet) TP ONE ×2 (03:25→05:50)
[2022-01-27] MEDS ORDERED: opium/belladonna alkaloids No. 15A 30mg rectal suppository RC ONE (03:50)
[2022-01-27] MEDS ORDERED: mirabegron 25mg ER tablet PO ONE (03:55)
[2022-01-27 05:36] LABS: COLOR,URINE YELLOW (Yellow); GLUCOSE, URINE NEGATIVE (Neg); KETONES,URINE NEGATIVE (Neg); LEUKOCYTE ESTERASE ,URINE SMALL (Neg); NITRITES, URINE NEGATIVE (Neg); OCCULT BLOOD,URINE SMALL (Neg); PROTEIN,URINE TRACE mg/dl (Neg); UROBILINOGEN,URINE 0.2 E.U/dL (0.2-1.0)
[2022-01-27 05:44] LABS: CLARITY,URINE SLIGHTLY CLOUDY (Clear); UA COLLECTION TYPE VOIDED
[2022-01-27 05:46] LABS: MUCUS STRANDS FEW /LPF (Neg); RBC,URINE 0-2 /HPF (0-2); SQUAMOUS EPITHELIAL CELL,UR FEW /LPF (FEW); WBC CLUMPS,URINE FEW /HPF (NEGATIVE)
[2022-01-27 05:47] LABS: BACTERIA,URINE 3+ /HPF (Neg)
[2022-01-27] MEDS ORDERED: LIDOcaine 2% 10ml TOPICAL JELLY (Urojet) MM ONE (06:00)
[2022-01-27] MEDS ORDERED: CIPR-202 PO (06:04)
[2022-01-27] MEDS ORDERED: ciprofloxacin 250mg tablet PO ONE (06:05)
== END 2022-01-27 07:00 | disposition home or self-care (01) ==
LOC: ER 02:56
DX: N39.0 Urinary tract infection, site not specified (principal); R33.9 Retention of urine, unspecified; F32.A Depression, unspecified; F20.9 Schizophrenia, unspecified; Z91.030 Bee allergy status; Z79.1 Long term (current) use of non-steroidal anti-inflammatories (NSAID); Z79.2 Long term (current) use of antibiotics
CPT/HCPCS: 51702; 81001; 87088; 87186; 99284; C1758; 87077; A4340; A5200

== ENCOUNTER 2022-02-28 16:16 | Emergency (ER) | payer MEDICARE, MEDICAID ==
[~2022-02-28] VITALS: Ht 175.3 cm; Wt 55.0 kg
[2022-02-28 16:56] VITALS: BP 104/61
[2022-02-28 18:46] LABS: CLARITY,URINE SLIGHTLY CLOUDY (Clear); COLOR,URINE YELLOW (Yellow); GLUCOSE, URINE NEGATIVE (Neg); KETONES,URINE NEGATIVE (Neg); LEUKOCYTE ESTERASE ,URINE SMALL (Neg); NITRITES, URINE NEGATIVE (Neg); OCCULT BLOOD,URINE MODERATE (Neg); PROTEIN,URINE NEGATIVE (Neg); UROBILINOGEN,URINE 0.2 E.U/dL (0.2-1.0)
[2022-02-28 18:47] LABS: UA COLLECTION TYPE CLN CATCH MIDSTREAM
[2022-02-28] MEDS ORDERED: CEPH-585 PO (18:55)
[2022-02-28 19:00] LABS: BACTERIA,URINE FEW /HPF (Neg); SQUAMOUS EPITHELIAL CELL,UR FEW /LPF (FEW); WBC,URINE 20-30 /HPF (0-4)
== END 2022-02-28 19:20 | disposition home or self-care (01) ==
LOC: ER 16:16
DX: T85.9XXA Unspecified complication of internal prosthetic device, implant and graft, initial encounter (principal); N39.0 Urinary tract infection, site not specified; F32.A Depression, unspecified; F20.9 Schizophrenia, unspecified; Z91.030 Bee allergy status; Z79.899 Other long term (current) drug therapy
CPT/HCPCS: 51702; 81001; 87077; 87088; 87186; 99284; A4314

== ENCOUNTER 2022-04-04 21:59 | Emergency (ER) | payer MEDICARE, MEDICAID ==
[~2022-04-04] VITALS: Ht 175.3 cm; Wt 54.5 kg
[~2022-04-04 21:59] MED LIST changes: +CEPH-585 PO
[2022-04-05 04:07] LABS: CLARITY,URINE CLEAR (Clear); COLOR,URINE STRAW (Yellow); GLUCOSE, URINE NEGATIVE (Neg); KETONES,URINE NEGATIVE (Neg); LEUKOCYTE ESTERASE ,URINE SMALL (Neg); NITRITES, URINE POSITIVE (Neg); OCCULT BLOOD,URINE MODERATE (Neg); PROTEIN,URINE NEGATIVE (Neg); UROBILINOGEN,URINE 0.2 E.U/dL (0.2-1.0)
[2022-04-05 04:10] LABS: UA COLLECTION TYPE FOLEY CATH
[2022-04-05 04:13] LABS: BACTERIA,URINE 1+ /HPF (Neg); SQUAMOUS EPITHELIAL CELL,UR FEW /LPF (FEW)
[2022-04-05 04:14] LABS: MUCUS STRANDS FEW /LPF (Neg); WBC CLUMPS,URINE FEW /HPF (NEGATIVE)
[2022-04-05 05:10] VITALS: BP 112/68
== END 2022-04-05 05:13 | disposition home or self-care (01) ==
LOC: ER 22:00
DX: T83.091A Other mechanical complication of indwelling urethral catheter, initial encounter (principal); F32.A Depression, unspecified; F20.9 Schizophrenia, unspecified; Z98.890 Other specified postprocedural states; Z79.2 Long term (current) use of antibiotics; Z79.899 Other long term (current) drug therapy; Y84.6 Urinary catheterization as the cause of abnormal reaction of the patient, or of later complication, without mention of misadventure at the time of the procedure
CPT/HCPCS: 51702; 81001; 87077; 87088; 87186; 99284; A4358

== ENCOUNTER 2022-07-10 07:41 | Emergency (ER) | payer MEDICARE, MEDICAID ==
[~2022-07-10] VITALS: Ht 175.3 cm; Wt 54.5 kg
--- NOTE | 2022-07-10 08:22 | NUR ---
Dr. Sheppard at bedside. interviewing patient and the sister at bedside.
--- NOTE | 2022-07-10 08:36 | NUR ---
Patient just urinated light yellow urine, cloudy in appearance, 300 ml. I let the scribe for Dr. Sheppard know as she told me Dr. Sheppard wanted a straight cath for this patient
--- NOTE | 2022-07-10 08:45 | NUR ---
I notified Dr. Sheppard patient already urinate d 300 ml of urine. I asked her about the straight cath order, she said we do not need to do the straight cath
[2022-07-10 09:00] VITALS: BP 103/60
[2022-07-10 09:11] LABS: CLARITY,URINE CLOUDY (Clear); COLOR,URINE STRAW (Yellow); GLUCOSE, URINE NEGATIVE (Neg); KETONES,URINE NEGATIVE (Neg); LEUKOCYTE ESTERASE ,URINE LARGE (Neg); NITRITES, URINE POSITIVE (Neg); OCCULT BLOOD,URINE SMALL (Neg); PROTEIN,URINE NEGATIVE (Neg); UROBILINOGEN,URINE 0.2 E.U/dL (0.2-1.0)
[2022-07-10 09:12] LABS: UA COLLECTION TYPE CLN CATCH MIDSTREAM
[2022-07-10 09:22] LABS: BACTERIA,URINE 4+ /HPF (Neg); MUCUS STRANDS NONE SEEN /LPF (Neg); SQUAMOUS EPITHELIAL CELL,UR NONE SEEN /LPF (FEW); WBC CLUMPS,URINE MANY /HPF (NEGATIVE); WBC,URINE TNTC /HPF (0-4)
[2022-07-10 09:23] LABS: BASOPHILS % (AUTO) 0.7 % (0-1); EOSINOPHILS % (AUTO) 0.2 % (0-6); HEMATOCRIT 34.7 % (42.0-52.0); HEMOGLOBIN 11.7 g/dl (14.0-17.9); LYMPHOCYTES # (AUTO) 1.6 X10'3 (1.1-4.8); LYMPHOCYTES % (AUTO) 27.1 % (21-51); MEAN CORPUSCULAR HEMOGLOBIN 32.4 PG (27.0-31.0); MEAN CORPUSCULAR HGB CONC 33.6 g/dL (33.0-36.5); MEAN CORPUSCULAR VOLUME 96.6 FL (78-98); MEAN PLATELET VOLUME 7.6 FL (7.4-10.4); MONOCYTES # (AUTO) 0.7 X10'3 (0-0.9); MONOCYTES % (AUTO) 11.8 % (2-12); NEUTROPHILS # (AUTO) 3.5 X10'3 (1.8-7.7); NEUTROPHILS % (AUTO) 60.2 % (42-75); PLATELET COUNT 233 X10'3 (140-440); RED CELL DISTRIBUTION WIDTH 13.3 % (11.5-14.5); WHITE BLOOD COUNT 5.8 X10'3 (4.5-11.0)
[2022-07-10 09:33] LABS: ALANINE AMINOTRANSFERASE 22 U/L (12-78); ALBUMIN 3.5 G/DL (3.4-5.0); ALKALINE PHOSPHATASE 75 IU/L (46-116); ANION GAP 3 (8-16); ASPARTATE AMINO TRANSFERASE 20 U/L (10-37); BILIRUBIN,TOTAL 0.2 MG/DL (0.1-1.0); BLOOD UREA NITROGEN 34 MG/DL (7-18); BUN/CREATININE RATIO 20.7 (5.4-32.0); CALCIUM 9.2 MG/DL (8.5-10.1); CHLORIDE 105 MMOL/L (99-107); CREATININE 1.64 MG/DL (0.60-1.10); GLUCOSE 98 MG/DL (70-104); POTASSIUM 4.5 MMOL/L (3.5-5.1); SODIUM 138 MMOL/L (135-145); TOTAL CARBON DIOXIDE 29.7 MMOL/L (24-32); eGFR 42 ML/MIN
[2022-07-10] MEDS ORDERED: sulfamethoxazole/trimethoprim DS (800/160mg) tablet PO ONE (09:45)
[2022-07-10] MEDS ORDERED: SULF1TAB49 PO (09:47)
[2022-07-10] MEDS ORDERED: HYDROcodone/acetaminophen 5mg/325mg tablet PO ONE (10:15)
== END 2022-07-10 10:34 | disposition home or self-care (01) ==
LOC: ER 07:42
DX: N39.0 Urinary tract infection, site not specified (principal); N40.0 Benign prostatic hyperplasia without lower urinary tract symptoms; F20.9 Schizophrenia, unspecified; F17.200 Nicotine dependence, unspecified, uncomplicated; Z91.030 Bee allergy status
CPT/HCPCS: 36415; 80053; 81001; 85025; 87077; 87088; 87186; 99284

== ENCOUNTER 2022-07-19 17:09 | Emergency (ER) | payer MEDICARE, MEDICAID ==
[~2022-07-19] VITALS: Ht 175.3 cm; Wt 54.5 kg
[~2022-07-19 17:09] MED LIST changes: +SULF1TAB49 PO
[2022-07-19 17:10] VITALS: BP 131/71
[2022-07-19 18:56] LABS: BASOPHILS % (AUTO) 0.2 % (0-1); EOSINOPHILS % (AUTO) 0.3 % (0-6); HEMATOCRIT 36.8 % (42.0-52.0); HEMOGLOBIN 12.4 g/dl (14.0-17.9); LYMPHOCYTES # (AUTO) 0.8 X10'3 (1.1-4.8); MEAN CORPUSCULAR HEMOGLOBIN 32.5 PG (27.0-31.0); MEAN CORPUSCULAR HGB CONC 33.7 g/dL (33.0-36.5); MEAN CORPUSCULAR VOLUME 96.5 FL (78-98); MEAN PLATELET VOLUME 7.9 FL (7.4-10.4); MONOCYTES # (AUTO) 0.9 X10'3 (0-0.9); MONOCYTES % (AUTO) 12.6 % (2-12); NEUTROPHILS # (AUTO) 5.1 X10'3 (1.8-7.7); NEUTROPHILS % (AUTO) 74.9 % (42-75); PLATELET COUNT 191 X10'3 (140-440); RED BLOOD COUNT 3.81 X10'6 (4.70-6.10); RED CELL DISTRIBUTION WIDTH 13.4 % (11.5-14.5); WHITE BLOOD COUNT 6.8 X10'3 (4.5-11.0)
[2022-07-19] MEDS ORDERED: OLANZapine 5mg rapidly disint. tablet PO ONE (19:00)
[2022-07-19 19:10] LABS: COLOR,URINE STRAW (Yellow); GLUCOSE, URINE NEGATIVE (Neg); KETONES,URINE NEGATIVE (Neg); LEUKOCYTE ESTERASE ,URINE SMALL (Neg); NITRITES, URINE NEGATIVE (Neg); OCCULT BLOOD,URINE SMALL (Neg); PH,URINE 6.5 (4.8-8.0); PROTEIN,URINE NEGATIVE (Neg); UROBILINOGEN,URINE 0.2 E.U/dL (0.2-1.0)
[2022-07-19 19:14] LABS: ALANINE AMINOTRANSFERASE 26 U/L (12-78); ALBUMIN 3.9 G/DL (3.4-5.0); ALBUMIN/GLOBULIN RATIO 1.1 (1.1-1.5); ALKALINE PHOSPHATASE 85 IU/L (46-116); ANION GAP 9 (8-16); ASPARTATE AMINO TRANSFERASE 22 U/L (10-37); BILIRUBIN,TOTAL 0.3 MG/DL (0.1-1.0); BLOOD UREA NITROGEN 32 MG/DL (7-18); CALCIUM 9.1 MG/DL (8.5-10.1); CHLORIDE 102 MMOL/L (99-107); CREATININE 2.14 MG/DL (0.60-1.10); GLUCOSE 102 MG/DL (70-104); POTASSIUM 5.1 MMOL/L (3.5-5.1); SODIUM 135 MMOL/L (135-145); TOTAL CARBON DIOXIDE 24.3 MMOL/L (24-32); TOTAL PROTEIN 7.5 G/DL (6.4-8.2); eGFR 31 ML/MIN
[2022-07-19 19:14] LABS: UA COLLECTION TYPE CLN CATCH MIDSTREAM
[2022-07-19 19:17] LABS: BACTERIA,URINE FEW /HPF (Neg); SQUAMOUS EPITHELIAL CELL,UR FEW /LPF (FEW); TRANSITIONAL EPI CELLS,URINE FEW /HPF; URINE AMPHETAMINE SCREEN NEGATIVE (Neg); URINE BARBITUATE SCREEN NEGATIVE (Neg); URINE BENZODIAZEPINES SCREEN NEGATIVE (Neg); URINE CANNABINOID SCREEN NEGATIVE (Neg); URINE COCAINE SCREEN NEGATIVE (Neg); URINE METHADONE SCREEN NEGATIVE (Neg); URINE OPIATE SCREEN NEGATIVE (Neg); URINE PHENCYCLIDINE SCREEN NEGATIVE (Neg); WBC,URINE 20-30 /HPF (0-4)
[2022-07-19 19:18] LABS: CLARITY,URINE SLIGHTLY CLOUDY (Clear); WBC CLUMPS,URINE MODERATE /HPF (NEGATIVE)
[2022-07-19 19:27] LABS: ETHANOL < 0.010 GM/DL (0.0-0.010)
[2022-07-19] MEDS ORDERED: normal saline 1000ML IV soln IVB ONE (19:30)
[2022-07-19] MEDS ORDERED: ibuprofen tablet 400 MG TABLET PO STA (19:59)
[2022-07-19] MEDS ORDERED: ibuprofen 200mg tablet PO STA (20:01)
[2022-07-19 22:20] LABS: ANION GAP 8 (8-16); BLOOD UREA NITROGEN 31 MG/DL (7-18); BUN/CREATININE RATIO 14.1 (5.4-32.0); CALCIUM 9.4 MG/DL (8.5-10.1); CHLORIDE 105 MMOL/L (99-107); GLUCOSE 100 MG/DL (70-104); POTASSIUM 4.6 MMOL/L (3.5-5.1); SODIUM 139 MMOL/L (135-145); eGFR 30 ML/MIN
[2022-07-20] MEDS ORDERED: MAGN400C PO (07:17)
[2022-07-20] MEDS ORDERED: MAGN500C4 PO (07:17)
[2022-07-20] MEDS ORDERED: HYDR-3965 PO (07:17)
[2022-07-20] MEDS ORDERED: TADA5TAB2 PO (07:17)
--- NOTE | 2022-07-20 07:33 | NUR ---
THIS TECH FAXED PATIENT PACKET TO [facility]
--- NOTE | 2022-07-20 14:50 | NUR ---
PT REQUESTING FOOD, SANDWICH AND SNACKS PROVIDED. PT SITTING QUIETLY AND EATING
--- NOTE | 2022-07-20 15:36 | NUR ---
pt ambulating in room, quiet in no apparent distress
--- NOTE | 2022-07-20 20:23 | NUR ---
Spoke to sister. Ride will be here at 2100. Staff alerted earlier that ride would be here at 2100.
== END 2022-07-20 21:30 | disposition home or self-care (01) ==
LOC: ER 17:09
DX: Z04.6 Encounter for general psychiatric examination, requested by authority (principal); G89.29 Other chronic pain; M54.50 Low back pain, unspecified; F17.200 Nicotine dependence, unspecified, uncomplicated; Z91.030 Bee allergy status
CPT/HCPCS: 36415; 80048; 80053; 80305; 80320; 81001; 85025; 87088; 96360; 99283; J7030

== ENCOUNTER 2022-07-26 04:22 | Emergency (ER) | payer MEDICARE, MEDICAID ==
[~2022-07-26] VITALS: Ht 175.3 cm; Wt 55.0 kg
[~2022-07-26 04:22] MED LIST changes: -CEPH-585 PO; -DOXY-224 PO; +HYDR-3965 PO; +MAGN400C PO; +MAGN500C4 PO; -OLAN5TAB3 PO; -OLAN5TAB75 PO; -SULF1TAB49 PO; +TADA5TAB2 PO
[2022-07-26 05:05] LABS: CLARITY,URINE CLEAR (Clear); COLOR,URINE STRAW (Yellow); GLUCOSE, URINE NEGATIVE (Neg); KETONES,URINE NEGATIVE (Neg); LEUKOCYTE ESTERASE ,URINE NEGATIVE (Neg); NITRITES, URINE NEGATIVE (Neg); OCCULT BLOOD,URINE NEGATIVE (Neg); PH,URINE 6.5 (4.8-8.0); PROTEIN,URINE NEGATIVE (Neg); UROBILINOGEN,URINE 0.2 E.U/dL (0.2-1.0)
[2022-07-26 05:10] LABS: UA COLLECTION TYPE NON-SPECIFIED
[2022-07-26 06:30] VITALS: BP 127/74
[2022-07-26 07:13] LABS: URINE AMPHETAMINE SCREEN NEGATIVE (Neg); URINE BARBITUATE SCREEN NEGATIVE (Neg); URINE BENZODIAZEPINES SCREEN NEGATIVE (Neg); URINE CANNABINOID SCREEN NEGATIVE (Neg); URINE COCAINE SCREEN NEGATIVE (Neg); URINE METHADONE SCREEN NEGATIVE (Neg); URINE OPIATE SCREEN NEGATIVE (Neg); URINE PHENCYCLIDINE SCREEN NEGATIVE (Neg)
[2022-07-26 07:23] LABS: BASOPHILS % (AUTO) 0.2 % (0-1); EOSINOPHILS % (AUTO) 0.1 % (0-6); HEMATOCRIT 36.5 % (42.0-52.0); HEMOGLOBIN 12.4 g/dl (14.0-17.9); LYMPHOCYTES # (AUTO) 1.9 X10'3 (1.1-4.8); LYMPHOCYTES % (AUTO) 27.9 % (21-51); MEAN CORPUSCULAR HEMOGLOBIN 32.6 PG (27.0-31.0); MEAN PLATELET VOLUME 7.9 FL (7.4-10.4); MONOCYTES # (AUTO) 0.6 X10'3 (0-0.9); MONOCYTES % (AUTO) 9.2 % (2-12); NEUTROPHILS # (AUTO) 4.3 X10'3 (1.8-7.7); NEUTROPHILS % (AUTO) 62.6 % (42-75); PLATELET COUNT 202 X10'3 (140-440); RED CELL DISTRIBUTION WIDTH 13.5 % (11.5-14.5); WHITE BLOOD COUNT 6.9 X10'3 (4.5-11.0)
[2022-07-26] MEDS ORDERED: MAGN400C PO (07:24)
[2022-07-26 07:40] LABS: ALANINE AMINOTRANSFERASE 25 U/L (12-78); ALBUMIN 3.6 G/DL (3.4-5.0); ALKALINE PHOSPHATASE 83 IU/L (46-116); ANION GAP 7 (8-16); ASPARTATE AMINO TRANSFERASE 20 U/L (10-37); BILIRUBIN,TOTAL 0.3 MG/DL (0.1-1.0); BLOOD UREA NITROGEN 25 MG/DL (7-18); BUN/CREATININE RATIO 16.3 (10.0-20.0); CALCIUM 9.1 MG/DL (8.5-10.1); CHLORIDE 106 MMOL/L (99-107); CREATININE 1.53 MG/DL (0.60-1.10); ETHANOL < 0.010 GM/DL (0.0-0.010); GLUCOSE 111 MG/DL (70-104); SODIUM 140 MMOL/L (135-145); TOTAL CARBON DIOXIDE 26.8 MMOL/L (24-32); TOTAL PROTEIN 7.3 G/DL (6.4-8.2); eGFR 46 ML/MIN
[2022-07-26] MEDS ORDERED: MAGN500C4 PO (07:56)
--- NOTE | 2022-07-26 14:00 | NUR ---
PATIENT SEEN AND EVALUATED BY [facility], STATES PATIENT IS NOT SUITABLE FOR HOLD AND WILL CONSULT WITH ANTHONY CONNOLLY. SHE IS UNABLE TO REACH PATIENT'S SISTER X1 HR.
--- NOTE | 2022-07-26 19:09 | NUR ---
Informed patient that per manager social services, sister to pick him up at 2000 tonight.
== END 2022-07-26 20:44 | disposition home or self-care (01) ==
LOC: ER 04:23
DX: N39.0 Urinary tract infection, site not specified (principal); Z20.822 Contact with and (suspected) exposure to COVID-19; F20.9 Schizophrenia, unspecified; F17.200 Nicotine dependence, unspecified, uncomplicated; Z91.030 Bee allergy status
CPT/HCPCS: 36415; 80053; 80305; 80320; 81003; 85025; 87811; 99283

== ENCOUNTER 2022-07-27 17:25 | Inpatient (IN) | payer MEDICARE, MEDICAID ==
[~2022-07-27] VITALS: Ht 175.3 cm; Wt 59.7 kg
[~2022-07-27 17:25] MED LIST changes: -MAGN400C PO
[2022-07-27] MEDS ORDERED: OLANZapine 5mg rapidly disint. tablet PO ONE (17:35)
[2022-07-27 18:10] LABS: ALANINE AMINOTRANSFERASE 28 U/L (12-78); ALKALINE PHOSPHATASE 90 IU/L (46-116); ANION GAP 10 (8-16); ASPARTATE AMINO TRANSFERASE 24 U/L (10-37); BILIRUBIN,TOTAL 0.3 MG/DL (0.1-1.0); BLOOD UREA NITROGEN 31 MG/DL (7-18); BUN/CREATININE RATIO 21.7 (10.0-20.0); CALCIUM 9.5 MG/DL (8.5-10.1); CHLORIDE 102 MMOL/L (99-107); CREATININE 1.43 MG/DL (0.60-1.10); GLUCOSE 123 MG/DL (70-104); POTASSIUM 4.4 MMOL/L (3.5-5.1); SODIUM 138 MMOL/L (135-145); TOTAL CARBON DIOXIDE 25.8 MMOL/L (24-32); TOTAL PROTEIN 7.9 G/DL (6.4-8.2); eGFR 50 ML/MIN
[2022-07-27 18:13] LABS: BASOPHILS % (AUTO) 0.3 % (0-1); EOSINOPHILS % (AUTO) 0.1 % (0-6); HEMATOCRIT 39.8 % (42.0-52.0); HEMOGLOBIN 13.4 g/dl (14.0-17.9); LYMPHOCYTES # (AUTO) 1.7 X10'3 (1.1-4.8); LYMPHOCYTES % (AUTO) 21.5 % (21-51); MEAN CORPUSCULAR HEMOGLOBIN 32.5 PG (27.0-31.0); MEAN CORPUSCULAR HGB CONC 33.6 g/dL (33.0-36.5); MEAN CORPUSCULAR VOLUME 96.7 FL (78-98); MONOCYTES # (AUTO) 0.7 X10'3 (0-0.9); MONOCYTES % (AUTO) 9.5 % (2-12); NEUTROPHILS # (AUTO) 5.4 X10'3 (1.8-7.7); NEUTROPHILS % (AUTO) 68.6 % (42-75); PLATELET COUNT 233 X10'3 (140-440); RED BLOOD COUNT 4.12 X10'6 (4.70-6.10); RED CELL DISTRIBUTION WIDTH 13.4 % (11.5-14.5); WHITE BLOOD COUNT 7.8 X10'3 (4.5-11.0)
[2022-07-27 18:31] LABS: ETHANOL < 0.010 GM/DL (0.0-0.010)
--- NOTE | 2022-07-27 19:45 | NUR ---
The patient to bed 24 in the ER overflow from the ER [facility]. He was seen by Braden CAMPBELL and was placed on a 1799 for being gravely disabled. This is the 3rd ER visit in the past week. The patient stated that he did not know why he was here. He stated that he has a history of Schizophrenia and manic depressive. He is not on any psychiatric medications. He stated that when he lived in [place] he was on Prolixin and Clozaril. He currently lives with his sister. She reports increasinly bizarre behaviors. He does endorce auditory hallucinations that are the voice of Deshawn. The sister also reports an increase in impulsive behaviors. He denied suicidal thoughts here in the ER but apparently he made vague suicidal statements in triage and at home to his sister. The patient was oriented to the unit. He was cooperative with the nursing assessment. He is a fall risk and last fall was yesterday. His cane was removed and he was given a walker.
--- NOTE | 2022-07-27 20:44 | NUR ---
The patient's sister came back and stated that under no circumstances does she want the patient discharged. She is adament that he be made a flight risk. She stated that for the past 4 years she has been his conservator and she feels she can't manage him. She stated, "He is very psychotic and delusional" "He is a treat to himself and thinks he is going to daily.
[2022-07-27 20:46] LABS: CLARITY,URINE SLIGHTLY CLOUDY (Clear); COLOR,URINE STRAW (Yellow); GLUCOSE, URINE NEGATIVE (Neg); KETONES,URINE NEGATIVE (Neg); LEUKOCYTE ESTERASE ,URINE SMALL (Neg); NITRITES, URINE NEGATIVE (Neg); OCCULT BLOOD,URINE SMALL (Neg); PROTEIN,URINE NEGATIVE (Neg); UROBILINOGEN,URINE 0.2 E.U/dL (0.2-1.0)
--- NOTE | 2022-07-27 20:46 | NUR ---
SISTER, YELENA OTOOLE [phone]
[2022-07-27 20:57] LABS: UA COLLECTION TYPE CLN CATCH MIDSTREAM
[2022-07-27 20:59] LABS: SQUAMOUS EPITHELIAL CELL,UR FEW /LPF (FEW)
[2022-07-27 21:00] LABS: BACTERIA,URINE FEW /HPF (Neg); RBC,URINE 0-2 /HPF (0-2); WBC,URINE 30-50 /HPF (0-4)
[2022-07-27 21:08] LABS: URINE AMPHETAMINE SCREEN NEGATIVE (Neg); URINE BARBITUATE SCREEN NEGATIVE (Neg); URINE BENZODIAZEPINES SCREEN NEGATIVE (Neg); URINE CANNABINOID SCREEN NEGATIVE (Neg); URINE COCAINE SCREEN NEGATIVE (Neg); URINE METHADONE SCREEN NEGATIVE (Neg); URINE OPIATE SCREEN NEGATIVE (Neg); URINE PHENCYCLIDINE SCREEN NEGATIVE (Neg)
--- NOTE | 2022-07-27 21:25 | NUR ---
The patient appears to be sleeping
--- NOTE | 2022-07-27 22:01 | NUR ---
PACKET SENT TO [facility]
--- NOTE | 2022-07-27 23:42 | NUR ---
The patient appears to be sleeping
--- NOTE | 2022-07-28 00:59 | NUR ---
The patient appears to be sleeping
--- NOTE | 2022-07-28 01:15 | NUR ---
Patient up and stating that he needed to straight cath himself. He has been voiding in the urinal. Will bladder scan to check for residual.
--- NOTE | 2022-07-28 01:43 | NUR ---
Per bladder scan there was >[address] Vargas made aware and ordered an indwelling joseph catheter. 620cc out via joseph. Patient tolerated procedure.
[2022-07-28] MEDS: acetaminophen 325mg tablet PO PRN (01:48)
--- NOTE | 2022-07-28 02:11 | NUR ---
The patient is being very dramatic. He is lighting tapping his head on the side rail and twisting and turning. Vital signs HR 62. 96% on room air. The patient is able to stop the behaviors when he wants to. Dr. Vargas at the bedside to speak with the patient and assess him. No new orders.
[2022-07-28] MEDS ORDERED: HYDROcodone/acetaminophen 5mg/325mg tablet PO ONE ×2 (02:55→23:20)
--- NOTE | 2022-07-28 02:57 | NUR ---
Patient requesting Marcela approved.
--- NOTE | 2022-07-28 05:00 | NUR ---
The patient appears to be sleeping
--- NOTE | 2022-07-28 06:56 | NUR ---
Patient is in his bed. He is awake, but lying quietly.
--- NOTE | 2022-07-28 07:14 | NUR ---
Emptied patient's catheter of ~500mL. Patient wants to go home.
[2022-07-28] MEDS ORDERED: non-formulary drug (Magnesium Oxide (Magnesium) 1 CAP) PO SCH (08:00)
[2022-07-28] MEDS: tamsulosin 0.4mg capsule PO SCH ×2 (08:02→17:47)
--- NOTE | 2022-07-28 09:26 | NUR ---
Patient wandering the unit with his walker. He is responding to IS. No aggressive movements.
--- NOTE | 2022-07-28 09:50 | NUR ---
Patient with [facility]
--- NOTE | 2022-07-28 11:00 | NUR ---
Patient up wandering back and forth complaining that he doesn't want to be here.
--- NOTE | 2022-07-28 13:37 | NUR ---
patient has been given crayons so he can do "art work."
--- NOTE | 2022-07-28 17:55 | NUR ---
Patient sitting on his bed relaxing before dinner.
--- NOTE | 2022-07-28 18:53 | NUR ---
Empied joseph cather 1700ml. Pt calm and cooperative with care.
--- NOTE | 2022-07-28 20:29 | NUR ---
Became aware that the patient is +MDRO in urine. CN was notified.
--- NOTE | 2022-07-28 22:31 | NUR ---
Pt appears to be sleeping.
--- NOTE | 2022-07-28 23:40 | NUR ---
Pt requested [place] for 02/14 chronic pain. MD notified and ordered.
--- NOTE | 2022-07-28 23:41 | NUR ---
Emptied joseph catheter ~1000cc.
--- NOTE | 2022-07-29 01:00 | NUR ---
Pt appears to be sleeping.
--- NOTE | 2022-07-29 04:14 | NUR ---
Pt appears to be sleeping.
--- NOTE | 2022-07-29 04:56 | NUR ---
Emptied joseph catheter ~700cc. Pt believes the joseph isnt draining properly but reassured the pt it is working as it should.
--- NOTE | 2022-07-29 06:50 | NUR ---
Pt. c/o back pain; PRN Tylenol admin.
[2022-07-29] MEDS: tamsulosin 0.4mg capsule PO SCH ×2 (06:56→20:20)
[2022-07-29] MEDS: acetaminophen 325mg tablet PO PRN (06:56)
--- NOTE | 2022-07-29 07:00 | NUR ---
Pt. awake and coloring at the bedside.
--- NOTE | 2022-07-29 09:00 | NUR ---
Pt. awake and ambulating with walker, c/o chronic back pain; spoke to provider N.O recieved. Tylenol 650mg Q6 PRN
--- NOTE | 2022-07-29 11:00 | NUR ---
Pt. resting in bed, eyes open, no distress noted
--- NOTE | 2022-07-29 12:30 | NUR ---
Pt. awake and sitting on side of the bed eating lunch.
[2022-07-29] MEDS ORDERED: acetaminophen 325mg tablet PO PRN ×2 (13:30→22:30)
--- NOTE | 2022-07-29 14:35 | NUR ---
Pt. asleep in Lt. side, no distress noted.
--- NOTE | 2022-07-29 16:30 | NUR ---
Pt. remains hyperverbal, flight of ideas yelled out non stop, numerous words are consistantly spelled out, no distress noted.
--- NOTE | 2022-07-29 16:30 | NUR ---
Pt. awake and ambulating with frontwheel walker, no issues.
--- NOTE | 2022-07-29 18:30 | NUR ---
patient in bed eating dinner. Alert and oriented.
--- NOTE | 2022-07-29 19:30 | NUR ---
pt. in bed asleep
--- NOTE | 2022-07-29 20:30 | NUR ---
awaken pt. to administer medication . Pt. is awake ambulating with fww.
--- NOTE | 2022-07-29 21:25 | NUR ---
pt. sitting at the side of bed awaiting to be transfered to [facility] unit.
[2022-07-29 22:25] VITALS: BP 103/69
[2022-07-29] MEDS ORDERED: magnesium hydroxide 30ml (MOM) UD suspension PO PRN (22:30)
[2022-07-29] MEDS ORDERED: loperamide 2mg capsule PO PRN (22:30)
[2022-07-29] MEDS ORDERED: NICOTINE POLACRILEX 2 MG LOZENGE BC PRN (22:30)
[2022-07-29] MEDS ORDERED: mag hydrox/Alum hydrox/simeth 30ml oral suspension PO PRN (22:30)
[2022-07-30] MEDS: HYDROcodone/acetaminophen 5mg/325mg tablet PO PRN ×2 (03:04→14:09)
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
--- NOTE | 2022-07-30 04:58 | NUR ---
Emptied joseph catheter ~1300cc.
[2022-07-30 07:00] VITALS: BP 111/72
[2022-07-30] MEDS ORDERED: non-formulary drug (Tadalafil* (Cialis*) 1 TAB) PO SCH (08:00)
[2022-07-30] MEDS: tamsulosin 0.4mg capsule PO SCH ×2 (08:09→17:39)
[2022-07-30] MEDS: nicotine 21mg patch - 24 hr TD SCH (08:09)
[2022-07-30] MEDS: magnesium oxide 400mg tablet PO SCH (08:10)
[2022-07-30 08:15] LABS: CHOL/HDL RATIO 3.3 (0.00-4.99); CHOLESTEROL 195 MG/DL (0-200); HDL CHOLESTEROL 60 MG/DL (35-60); LDL CHOLESTEROL 117 MG/DL (50-100); TRIGLYCERIDES 93 MG/DL (20-135)
[2022-07-30 08:20] LABS: HEMOGLOBIN A1C 5.9 % (4.5-6.2)
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
[2022-07-30 20:00] VITALS: BP 120/64
[2022-07-30] MEDS ORDERED: OLANZAPINE 5 MG TABLET PO SCH (21:00)
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
--- NOTE | 2022-07-31 06:29 | NUR ---
Pt pulled his joseph catheter out. Will endorse to day shift.
[2022-07-31 07:00] VITALS: BP 103/65
[2022-07-31] MEDS: tamsulosin 0.4mg capsule PO SCH ×2 (08:28→18:08)
[2022-07-31] MEDS: magnesium oxide 400mg tablet PO SCH (08:33)
[2022-07-31] MEDS: nicotine 21mg patch - 24 hr TD SCH (08:33)
[2022-07-31] MEDS ORDERED: HYDROcodone/acetaminophen 5mg/325mg tablet PO ONE (10:00)
--- NOTE | 2022-07-31 15:31 | NUR ---
catheter emptied 900 ml.
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
[2022-07-31] MEDS: HYDROcodone/acetaminophen 5mg/325mg tablet PO PRN (19:10)
[2022-07-31 20:00] VITALS: BP 114/64
--- NOTE | 2022-07-31 21:30 | NUR ---
700 ml of urine emptied out of joseph catheter
[2022-07-31] MEDS: olanzapine 10mg tablet PO SCH (21:38)
--- NOTE | 2022-08-01 02:40 | NUR ---
1200 ml of urine emptied out of joseph catheter.
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
--- NOTE | 2022-08-01 05:27 | NUR ---
300 ml of urine emptied out of joseph catheter.
[2022-08-01 08:00] VITALS: BP 97/63
[2022-08-01] MEDS: magnesium oxide 400mg tablet PO SCH (08:52)
[2022-08-01] MEDS: tamsulosin 0.4mg capsule PO SCH ×2 (08:52→18:15)
[2022-08-01] MEDS: HYDROcodone/acetaminophen 5mg/325mg tablet PO PRN ×2 (08:53→21:22)
[2022-08-01] MEDS: nicotine 21mg patch - 24 hr TD SCH (08:55)
--- NOTE | 2022-08-01 15:54 | NUR ---
1450mL drained out of joseph catheter. Light yellow in color, no odor, sediment, or clouding noted.
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
[2022-08-01] MEDS: amox tr/potassium clavulanate 500mg/125mg TAB PO SCH (18:15)
[2022-08-01 20:00] VITALS: BP 117/66
[2022-08-01] MEDS: olanzapine 10mg tablet PO SCH (20:44)
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
[2022-08-02 08:00] VITALS: BP 114/75
[2022-08-02] MEDS: tamsulosin 0.4mg capsule PO SCH ×2 (08:09→17:21)
[2022-08-02] MEDS: magnesium oxide 400mg tablet PO SCH (08:10)
[2022-08-02] MEDS: HYDROcodone/acetaminophen 5mg/325mg tablet PO PRN ×2 (08:10→20:07)
[2022-08-02] MEDS: amox tr/potassium clavulanate 500mg/125mg TAB PO SCH ×2 (08:10→17:21)
[2022-08-02] MEDS: nicotine 21mg patch - 24 hr TD SCH (08:12)
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
--- NOTE | 2022-08-02 17:57 | NUR ---
1500mL urine emptied out of joseph catheter. Light yellow in color, no odor, sediment, or clouding noted.
[2022-08-02 19:45] VITALS: BP 98/56
[2022-08-02] MEDS: olanzapine 10mg tablet PO SCH (20:07)
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
[2022-08-03] MEDS: amox tr/potassium clavulanate 500mg/125mg TAB PO SCH ×2 (07:57→17:55)
[2022-08-03] MEDS: tamsulosin 0.4mg capsule PO SCH ×2 (07:57→17:55)
[2022-08-03] MEDS: magnesium oxide 400mg tablet PO SCH (07:57)
[2022-08-03] MEDS: acetaminophen 325mg tablet PO PRN (07:58)
[2022-08-03] MEDS: nicotine 21mg patch - 24 hr TD SCH (08:01)
[2022-08-03 08:14] VITALS: BP 106/65
--- NOTE | 2022-08-03 09:19 | NUR ---
Initial: Pt admit for psychosis with SI. Currently on a regular diet and eating well, documented with mostly 100% PO intake meeting estimated nutrient needs. LBM 08/01 with no c/o constipation or diarrhea per pressed or blown glass worker. PRN bowel care available. No edema and skin is intact per EMR. No nutrition intervention implemented at this time. Will continue to follow. Recommendations: 1) Continue regular diet 2) Bowel care PRN 3) Weekly scaled weights Addendum: 08/03/22 at [address] Amended: Links added.
--- NOTE | 2022-08-03 12:25 | NUR ---
Emptied 875 ml from Sears cath bag, clear, yellow urine.
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
[2022-08-03 19:00] VITALS: BP 101/66
[2022-08-03] MEDS: olanzapine 10mg tablet PO SCH (20:35)
[2022-08-03] MEDS: HYDROcodone/acetaminophen 5mg/325mg tablet PO PRN (22:46)
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
[2022-08-04 07:31] VITALS: BP 103/58
[2022-08-04] MEDS: nicotine 21mg patch - 24 hr TD SCH (08:00)
[2022-08-04] MEDS: magnesium oxide 400mg tablet PO SCH (08:34)
[2022-08-04] MEDS: amox tr/potassium clavulanate 500mg/125mg TAB PO SCH ×2 (08:34→17:39)
[2022-08-04] MEDS: tamsulosin 0.4mg capsule PO SCH ×2 (08:34→17:39)
--- NOTE | 2022-08-04 15:31 | NUR ---
DISCHARGE PLANNING Norberto reported he would like to go to the [facility] in [place]. He reported he has friends there and can follow up with Behavioral Health. Spoke to Elham at [facility] (ph# [phone]) to inquire if they have beds and if Norberto could return there. She reported they do have a bed. She reported her mother, Roz, will need to talk to Norberto on the phone. She reported Roz will call Norberto a little later today. JENNIFFER Mejia
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
[2022-08-04 19:00] VITALS: BP 105/64
[2022-08-04] MEDS: HYDROcodone/acetaminophen 5mg/325mg tablet PO PRN (20:22)
[2022-08-04] MEDS: olanzapine 10mg tablet PO SCH (20:23)
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
[2022-08-05 07:00] VITALS: BP 102/58
[2022-08-05] MEDS: tamsulosin 0.4mg capsule PO SCH ×2 (07:23→17:52)
[2022-08-05] MEDS: amox tr/potassium clavulanate 500mg/125mg TAB PO SCH ×2 (07:24→17:52)
[2022-08-05] MEDS: nicotine 21mg patch - 24 hr TD SCH (07:25)
[2022-08-05] MEDS: magnesium oxide 400mg tablet PO SCH (07:25)
--- NOTE | 2022-08-05 15:28 | NUR ---
DISCHARGE PLANNING Norberto has been accepted at [facility] (ph# [phone]). He will be able to go on Mon or once paperwork is complete, follow up scheduled, and transportation arranged. Attempted to reach Norberto's sister, Beverly (ph# [phone]) twice today to apprise her of the situation. Was unable to leave a voice mail. JANAE Mejia
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
[2022-08-05 20:00] VITALS: BP 122/68
[2022-08-05] MEDS: olanzapine 10mg tablet PO SCH (20:43)
[2022-08-05] MEDS: HYDROcodone/acetaminophen 5mg/325mg tablet PO PRN (20:44)
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
--- NOTE | 2022-08-06 00:48 | NUR ---
950 mL emptied out of F/C. Clear and light yellow.
[2022-08-06 08:00] VITALS: BP 116/68
[2022-08-06] MEDS: tamsulosin 0.4mg capsule PO SCH ×2 (08:07→16:55)
[2022-08-06] MEDS: magnesium oxide 400mg tablet PO SCH (08:07)
[2022-08-06] MEDS: amox tr/potassium clavulanate 500mg/125mg TAB PO SCH ×2 (08:07→16:55)
[2022-08-06] MEDS: nicotine 21mg patch - 24 hr TD SCH (08:08)
[2022-08-06] MEDS: lactobacillus acidophilus cap PO SCH ×2 (13:07→17:30)
[2022-08-06] MEDS ORDERED: hydrOXYzine 25 MG tablet PO ONE (15:37)
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
--- NOTE | 2022-08-06 16:33 | NUR ---
Output: 1100 urine out from FC, urine is straw yellow in color and clear.
[2022-08-06] MEDS: HYDROcodone/acetaminophen 5mg/325mg tablet PO PRN (19:12)
[2022-08-06 20:00] VITALS: BP 121/66
[2022-08-06] MEDS: olanzapine 10mg tablet PO SCH (20:46)
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
[2022-08-07] MEDS: nicotine 21mg patch - 24 hr TD SCH (07:34)
[2022-08-07] MEDS: amox tr/potassium clavulanate 500mg/125mg TAB PO SCH ×2 (07:35→17:28)
[2022-08-07] MEDS: tamsulosin 0.4mg capsule PO SCH ×2 (07:35→17:28)
[2022-08-07] MEDS: lactobacillus rhamnosus 10,000 MMU CELLS/CAPSULE PO SCH ×3 (07:35→17:29)
[2022-08-07] MEDS: OLANZapine 2.5MG tablet PO SCH (07:35)
[2022-08-07] MEDS: magnesium oxide 400mg tablet PO SCH (07:36)
[2022-08-07 08:00] VITALS: BP 107/57
[2022-08-07] MEDS: acetaminophen 325mg tablet PO PRN (12:56)
[2022-08-07] MEDS ORDERED: NICO-907 BC (13:07)
[2022-08-07] MEDS ORDERED: NICO-687 TD (13:07)
[2022-08-07] MEDS ORDERED: FLO0.4C PO (13:07)
[2022-08-07] MEDS ORDERED: MAGN400T56 PO (13:07)
[2022-08-07] MEDS ORDERED: HYDR-3965 PO (13:07)
[2022-08-07] MEDS ORDERED: OLAN5TAB75 PO (13:08)
[2022-08-07] MEDS ORDERED: OLAN10TA73 PO (13:08)
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
[2022-08-07 19:00] VITALS: BP 121/64
[2022-08-07] MEDS: olanzapine 10mg tablet PO SCH (20:38)
[2022-08-07] MEDS: HYDROcodone/acetaminophen 5mg/325mg tablet PO PRN (20:45)
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
[2022-08-08] MEDS: lactobacillus rhamnosus 10,000 MMU CELLS/CAPSULE PO SCH ×3 (07:10→17:32)
[2022-08-08] MEDS: magnesium oxide 400mg tablet PO SCH (07:11)
[2022-08-08] MEDS: OLANZapine 2.5MG tablet PO SCH (07:11)
[2022-08-08] MEDS: amox tr/potassium clavulanate 500mg/125mg TAB PO SCH (07:11)
[2022-08-08] MEDS: tamsulosin 0.4mg capsule PO SCH ×2 (07:11→17:32)
[2022-08-08] MEDS: nicotine 21mg patch - 24 hr TD SCH (07:14)
[2022-08-08 08:00] VITALS: BP 108/64
[2022-08-08] MEDS: acetaminophen 325mg tablet PO PRN (09:08)
--- NOTE | 2022-08-08 14:37 | NUR ---
Spoke to Beverly (ph# [phone]), Norberto's sister, and asked her to bring a bag of his clothes and his cane. She reported she will do so tonight or tomorrow. Informed her that he is going to discharge to [facility]. Sent 602 to [facility]. Checked in with Korina (ph# [phone]) and let her know we are still waiting on chest x-ray to get read to rule out TB. JENNIFFER Mejia
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
[2022-08-08 19:17] VITALS: BP 112/71
[2022-08-08] MEDS: HYDROcodone/acetaminophen 5mg/325mg tablet PO PRN (20:21)
[2022-08-08] MEDS: olanzapine 10mg tablet PO SCH (20:21)
[2022-08-08] MEDS ORDERED: traZODone 50mg tablet PO ONE (21:00)
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
[2022-08-09 08:00] VITALS: BP 111/67
[2022-08-09] MEDS: tamsulosin 0.4mg capsule PO SCH ×2 (08:17→18:01)
[2022-08-09] MEDS: lactobacillus rhamnosus 10,000 MMU CELLS/CAPSULE PO SCH ×3 (08:17→18:01)
[2022-08-09] MEDS: OLANZapine 2.5MG tablet PO SCH (08:17)
[2022-08-09] MEDS: magnesium oxide 400mg tablet PO SCH (08:17)
[2022-08-09] MEDS: nicotine 21mg patch - 24 hr TD SCH (08:18)
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
--- NOTE | 2022-08-09 15:56 | NUR ---
DISCHARGE-Mon08/10/22 AT 10 AM Norberto is getting picked up by [facility] transportation (# [phone]) at 10 AM to take him to [facility] in [place]. He has follow up scheduled with [facility]. His sister, Beverly, is aware of this. JENNIFFER Mejia
[2022-08-09 19:53] VITALS: BP 125/74
[2022-08-09] MEDS ORDERED: traZODone 50mg tablet PO ONE (20:40)
[2022-08-09] MEDS: olanzapine 10mg tablet PO SCH (20:49)
[2022-08-09] MEDS: HYDROcodone/acetaminophen 5mg/325mg tablet PO PRN (20:50)
[2022-08-09] MEDS ORDERED: traZODone 50mg tablet PO PRN (22:35)
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
[2022-08-10] MEDS: nicotine 21mg patch - 24 hr TD SCH (07:48)
[2022-08-10] MEDS: magnesium oxide 400mg tablet PO SCH (07:48)
[2022-08-10] MEDS: lactobacillus rhamnosus 10,000 MMU CELLS/CAPSULE PO SCH (07:48)
[2022-08-10] MEDS: OLANZapine 2.5MG tablet PO SCH (07:48)
[2022-08-10] MEDS: tamsulosin 0.4mg capsule PO SCH (07:49)
[2022-08-10 08:00] VITALS: BP 105/55
== END 2022-08-10 09:42 | disposition home or self-care (01) | DRG 885 ==
LOC: ER 17:26 → ED HOLD 07-29 16:30 → ADULT MH 07-29 22:15
PROVIDERS: ADMIT Psychiatry & Neurology Psychiatry; ATTEND Psychiatry & Neurology Psychiatry
DX: F29 Unspecified psychosis not due to a substance or known physiological condition (principal); B95.2 Enterococcus as the cause of diseases classified elsewhere; R45.851 Suicidal ideations; N39.0 Urinary tract infection, site not specified; Z20.822 Contact with and (suspected) exposure to COVID-19; F20.0 Paranoid schizophrenia; F17.210 Nicotine dependence, cigarettes, uncomplicated; F32.A Depression, unspecified; B96.5 Pseudomonas (aeruginosa) (mallei) (pseudomallei) as the cause of diseases classified elsewhere; N13.9 Obstructive and reflux uropathy, unspecified; M54.9 Dorsalgia, unspecified; R51.9 Headache, unspecified; G89.29 Other chronic pain; K59.00 Constipation, unspecified; N40.1 Benign prostatic hyperplasia with lower urinary tract symptoms; R33.8 Other retention of urine; Z82.5 Family history of asthma and other chronic lower respiratory diseases; Z91.14 Patient's other noncompliance with medication regimen; Z91.51 Personal history of suicidal behavior; Z91.030 Bee allergy status; Z81.1 Family history of alcohol abuse and dependence; Z79.899 Other long term (current) drug therapy; Z71.6 Tobacco abuse counseling
CPT/HCPCS: 36415; 71045; 80053; 80061; 80305; 80320; 81001; 81003; 82948; 83036; 84443; 85025; 87077; 87081; 87088; 87186; 87811; 97110; 97116; 99285; A4358; A5200; Q0177

== ENCOUNTER 2022-09-19 19:53 | Inpatient (IN) | payer MEDICARE, MEDICAID ==
[~2022-09-19] VITALS: Ht 175.3 cm; Wt 61.1 kg
[~2022-09-19 19:53] MED LIST changes: +MAGN400T56 PO; -MAGN500C4 PO; +NICO-687 TD; +NICO-907 BC; +OLAN10TA73 PO; +OLAN5TAB75 PO; -TADA5TAB2 PO
[2022-09-19] MEDS ORDERED: acetaminophen 325mg tablet PO PRN (21:15)
[2022-09-19] MEDS ORDERED: mag hydrox/Alum hydrox/simeth 30ml oral suspension PO PRN (21:15)
[2022-09-19] MEDS ORDERED: loperamide 2mg capsule PO PRN (21:15)
[2022-09-19] MEDS ORDERED: POLY119P2 PO (21:35)
[2022-09-19] MEDS ORDERED: CLOZ25TA36 PO (21:35)
[2022-09-19] MEDS ORDERED: HYDR30CR79 TOP (21:35)
[2022-09-19] MEDS ORDERED: NICO-631 TD (21:35)
[2022-09-19] MEDS ORDERED: FLO0.4C PO (21:35)
[2022-09-19] MEDS ORDERED: NICOTINE POLACRILEX 2 MG LOZENGE BC PRN (21:40)
[2022-09-19] MEDS ORDERED: LORazepam 1 MG tablet PO ONE (22:25)
[2022-09-19] MEDS ORDERED: CLOZAPINE 25 MG oral disintegrating tablet PO ONE (22:25)
--- NOTE | 2022-09-19 23:50 | NUR ---
Admit Note: Pt arrived on Unit at 2114 via W/C from ED. Skin check complete. Pt speech is rapid and disorganized. Poor historian because he is so delusional. He shared various delusions. He believes he can kill people with his mind, He can travel out of his body, He also believes he is the second coming of Flip and God speaks to him all the time. Pt Cooperative at first with admit process but by the end was yelling "Quit asking me all those Fucking questions" Given HS meds went to room and went to sleep.
[2022-09-20 07:30] VITALS: BP 109/79
[2022-09-20 07:42] LABS: CHOL/HDL RATIO 3.5 (0.00-4.99); CHOLESTEROL 195 MG/DL (0-200); HDL CHOLESTEROL 56 MG/DL (35-60); LDL CHOLESTEROL 107 MG/DL (50-100); TRIGLYCERIDES 86 MG/DL (20-135)
[2022-09-20] MEDS: tamsulosin 0.4mg capsule PO SCH (07:54)
[2022-09-20] MEDS: nicotine 14mg patch - 24hr TD SCH (07:56)
[2022-09-20] MEDS: HYDROCORTISONE 28.35 GM CREAM.GM. RC SCH ×2 (08:00→20:58)
[2022-09-20] MEDS ORDERED: polyethylene glycol 3350 17gm powd pack PO SCH (08:00)
[2022-09-20] MEDS: clozapine 25mg tablet PO SCH ×2 (08:21→20:58)
[2022-09-20] MEDS ORDERED: LORazepam 1 MG tablet PO ONE (09:27)
[2022-09-20 11:30] LABS: BASOPHILS % (AUTO) 0.6 % (0-1); EOSINOPHILS % (AUTO) 0.1 % (0-6); HEMATOCRIT 35.9 % (42.0-52.0); LYMPHOCYTES # (AUTO) 1.4 X10'3 (1.1-4.8); LYMPHOCYTES % (AUTO) 19.7 % (21-51); MEAN CORPUSCULAR HEMOGLOBIN 31.5 PG (27.0-31.0); MEAN CORPUSCULAR HGB CONC 33.5 g/dL (33.0-36.5); MEAN CORPUSCULAR VOLUME 93.9 FL (78-98); MEAN PLATELET VOLUME 8.8 FL (7.4-10.4); MONOCYTES # (AUTO) 0.8 X10'3 (0-0.9); MONOCYTES % (AUTO) 11.6 % (2-12); NEUTROPHILS # (AUTO) 4.8 X10'3 (1.8-7.7); PLATELET COUNT 256 X10'3 (140-440); RED BLOOD COUNT 3.82 X10'6 (4.70-6.10); RED CELL DISTRIBUTION WIDTH 13.1 % (11.5-14.5); WHITE BLOOD COUNT 7.1 X10'3 (4.5-11.0)
--- NOTE | 2022-09-20 12:45 | NUR ---
Pt. was found on the floor in his bathroom at 12:40 by unit tech doing q 15 min rounds. Pt. was assisted up with two staff and placed in wheel chair. Pt. is A&Ox4 and denies c/o pain. Pt. physically examined an no visible signs of injury or wounds found. Pt. Vitals were 85/51, 98.4 temp, 97% SPO2, and 90 HR. Provider contacted and CMP and CMP were ordered. Pt. placed on LOS.
[2022-09-20 13:00] VITALS: BP 85/51
[2022-09-20 13:43] LABS: ALANINE AMINOTRANSFERASE 33 U/L (12-78); ALBUMIN 3.5 G/DL (3.4-5.0); ALKALINE PHOSPHATASE 103 IU/L (46-116); ANION GAP 12 (8-16); ASPARTATE AMINO TRANSFERASE 27 U/L (10-37); BILIRUBIN,TOTAL 0.3 MG/DL (0.1-1.0); BLOOD UREA NITROGEN 36 MG/DL (7-18); BUN/CREATININE RATIO 20.9 (10.0-20.0); CALCIUM 9.7 MG/DL (8.5-10.1); CHLORIDE 106 MMOL/L (99-107); CREATININE 1.72 MG/DL (0.60-1.10); GLUCOSE 97 MG/DL (70-104); POTASSIUM 4.5 MMOL/L (3.5-5.1); SODIUM 141 MMOL/L (135-145); TOTAL CARBON DIOXIDE 23.4 MMOL/L (24-32); TOTAL PROTEIN 6.9 G/DL (6.4-8.2); eGFR 40 ML/MIN
[2022-09-20] MEDS: normal saline 1000ml 1,000 ML IV SCH (15:10)
[2022-09-20 15:36] LABS: BASOPHILS % (AUTO) 0.2 % (0-1); EOSINOPHILS % (AUTO) 0.2 % (0-6); HEMATOCRIT 34.9 % (42.0-52.0); HEMOGLOBIN 11.8 g/dl (14.0-17.9); LYMPHOCYTES # (AUTO) 1.2 X10'3 (1.1-4.8); LYMPHOCYTES % (AUTO) 17.8 % (21-51); MEAN CORPUSCULAR HEMOGLOBIN 31.5 PG (27.0-31.0); MEAN CORPUSCULAR HGB CONC 33.7 g/dL (33.0-36.5); MEAN CORPUSCULAR VOLUME 93.6 FL (78-98); MEAN PLATELET VOLUME 7.5 FL (7.4-10.4); MONOCYTES % (AUTO) 14.4 % (2-12); NEUTROPHILS # (AUTO) 4.7 X10'3 (1.8-7.7); NEUTROPHILS % (AUTO) 67.4 % (42-75); PLATELET COUNT 249 X10'3 (140-440); RED BLOOD COUNT 3.73 X10'6 (4.70-6.10); RED CELL DISTRIBUTION WIDTH 13.5 % (11.5-14.5); WHITE BLOOD COUNT 6.9 X10'3 (4.5-11.0)
[2022-09-20 15:40] LABS: ALANINE AMINOTRANSFERASE 36 U/L (12-78); ALBUMIN 3.3 G/DL (3.4-5.0); ALKALINE PHOSPHATASE 96 IU/L (46-116); ANION GAP 8 (8-16); ASPARTATE AMINO TRANSFERASE 25 U/L (10-37); BILIRUBIN,TOTAL 0.3 MG/DL (0.1-1.0); BLOOD UREA NITROGEN 34 MG/DL (7-18); BUN/CREATININE RATIO 19.7 (10.0-20.0); CALCIUM 9.3 MG/DL (8.5-10.1); CHLORIDE 105 MMOL/L (99-107); CREATININE 1.73 MG/DL (0.60-1.10); GLUCOSE 94 MG/DL (70-104); POTASSIUM 4.4 MMOL/L (3.5-5.1); SODIUM 141 MMOL/L (135-145); TOTAL CARBON DIOXIDE 28.3 MMOL/L (24-32); TOTAL PROTEIN 6.7 G/DL (6.4-8.2); eGFR 40 ML/MIN
[2022-09-20 16:00] VITALS: BP 105/63
--- NOTE | 2022-09-20 16:00 | NUR ---
Vitals signs 105/63, HR 70, SPO2 97%, Resp 17. Pt. resting. 0.9 NS running at 100ml/hr in left wrist IV gauge 22. Respirations even and unlabored. Pt. sleeping.
--- NOTE | 2022-09-20 16:42 | NUR ---
Nursing Progress Notes: Problem: 5150 states, Attending prescriber reports he needs safe hospitalization to titrate clozaril and gain stability. Losing placement due to mood instability and psychosis. Interventions: Provide medication administration & medication management; Maintained a safe & supportive environment; Clear & simple instructions; Direction & encouragement regarding performance of ADLs; monitored behaviors & maintained clear boundaries; Patient physical assessment & 1:1 patient interview; Therapeutic conversation & active listening; Patient education & monitoring. Response: RN received pt. asleep in bed at start of shift. Pt. awoke for breakfast and took all medications. Pt. went back to his room and slept. Pt. wakes up and yells loudly and then goes back to sleep. RN attempted to talk to pt. when he was yelling and pt. states, Im afraid to !. RN received now dose for Ativan 1mg for anxiety. Pt. was found on the floor in his bathroom at 12:40 by Dizmo doing q 15 min rounds. Pt. was assisted up with two staff and placed in wheel chair. Pt. is A&Ox4 and denies c/o pain. Pt. physically examined an no visible signs of injury or wounds found. Pt. Vitals were 85/51, 98.4 temp, 97% SPO2, and 90 HR. Provider contacted and CMP and CMP were ordered. Pt. placed on LOS. Pt. assessed by hospitalist and IV ordered for 0.9 NS running at 100ml/hr. IV placed in left wrist. Plan: Pt is in need of psychiatric evaluation and stabilization in a safe and therapeutic environment until appropriate placement found.
[2022-09-20 17:30] VITALS: BP 107/66
[2022-09-20 20:00] VITALS: BP 115/73
[2022-09-20] MEDS ORDERED: LORazepam 0.5 MG tablet PO ONE (22:20)
--- NOTE | 2022-09-20 23:43 | NUR ---
Nursing Progress Notes: Problem: 5150 states, Attending prescriber reports he needs safe hospitalization to titrate clozaril and gain stability. Losing placement due to mood instability and psychosis. Interventions: Introduced self and established rapport, Provide medication administration & medication management; Maintained a safe & supportive environment; Clear & simple instructions; Direction & encouragement regarding performance of ADLs; monitored behaviors & maintained clear boundaries; Patient physical assessment & 1:1 patient interview; Therapeutic conversation & active listening; Patient education & monitoring. Response: Received patient asleep in bed at start of shift. Patient has a left wrist IV and is running fluids as order NS running at 100ml/hr. BP is to be taken manually as MD ordered, Legal status change to involuntary. During medication pass patient was talking but was not clear, something about [place]. Patient took medication after a couple different attempts. Patient woke up and started yelling about random things. Patient states that ever since he took his first dose of medication here is when all his health went down. esthetician permanent makeup artist MD was notified of behavior and Ativan was ordered. Ativan given and now patient sleeping in bed with no complaints at this time. Plan: Pt is in need of psychiatric evaluation and stabilization in a safe and therapeutic environment until appropriate placement found. Encourage patient to drink more than 1,000Ml per day as MD order
[2022-09-21] MEDS: normal saline 1000ml 1,000 ML IV SCH ×3 (00:58→21:09)
[2022-09-21 08:00] VITALS: BP 110/76
[2022-09-21] MEDS: nicotine 14mg patch - 24hr TD SCH (08:00)
[2022-09-21] MEDS: tamsulosin 0.4mg capsule PO SCH (08:03)
[2022-09-21] MEDS: clozapine 25mg tablet PO SCH ×2 (08:03→21:10)
[2022-09-21] MEDS: acetaminophen 325mg tablet PO PRN (08:04)
[2022-09-21] MEDS: HYDROCORTISONE 28.35 GM CREAM.GM. RC SCH ×2 (08:42→20:00)
[2022-09-21 11:03] LABS: ALANINE AMINOTRANSFERASE 33 U/L (12-78); ALBUMIN 3.3 G/DL (3.4-5.0); ALKALINE PHOSPHATASE 94 IU/L (46-116); ANION GAP 7 (8-16); ASPARTATE AMINO TRANSFERASE 20 U/L (10-37); BILIRUBIN,TOTAL 0.3 MG/DL (0.1-1.0); BLOOD UREA NITROGEN 35 MG/DL (7-18); BUN/CREATININE RATIO 21.6 (10.0-20.0); CALCIUM 8.9 MG/DL (8.5-10.1); CHLORIDE 108 MMOL/L (99-107); CREATININE 1.62 MG/DL (0.60-1.10); GLUCOSE 88 MG/DL (70-104); POTASSIUM 4.3 MMOL/L (3.5-5.1); SODIUM 142 MMOL/L (135-145); TOTAL CARBON DIOXIDE 26.8 MMOL/L (24-32); TOTAL PROTEIN 6.7 G/DL (6.4-8.2); eGFR 43 ML/MIN
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
[2022-09-21 20:00] VITALS: BP 116/71
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
[2022-09-22] MEDS: normal saline 1000ml 1,000 ML IV SCH ×2 (06:55→16:32)
[2022-09-22] MEDS: tamsulosin 0.4mg capsule PO SCH (07:27)
[2022-09-22] MEDS: clozapine 25mg tablet PO SCH ×2 (07:27→20:18)
[2022-09-22] MEDS: acetaminophen 325mg tablet PO PRN ×2 (07:28→12:28)
[2022-09-22] MEDS: HYDROCORTISONE 28.35 GM CREAM.GM. RC SCH ×2 (07:30→20:00)
[2022-09-22 08:00] VITALS: BP 122/75
[2022-09-22 10:42] LABS: ALANINE AMINOTRANSFERASE 30 U/L (12-78); ALBUMIN/GLOBULIN RATIO 0.9 (1.1-1.5); ALKALINE PHOSPHATASE 91 IU/L (46-116); ANION GAP 5 (8-16); ASPARTATE AMINO TRANSFERASE 20 U/L (10-37); BILIRUBIN,TOTAL 0.2 MG/DL (0.1-1.0); BLOOD UREA NITROGEN 33 MG/DL (7-18); BUN/CREATININE RATIO 20.8 (10.0-20.0); CALCIUM 9.1 MG/DL (8.5-10.1); CHLORIDE 110 MMOL/L (99-107); CREATININE 1.59 MG/DL (0.60-1.10); GLUCOSE 97 MG/DL (70-104); POTASSIUM 4.7 MMOL/L (3.5-5.1); SODIUM 142 MMOL/L (135-145); TOTAL CARBON DIOXIDE 27.4 MMOL/L (24-32); TOTAL PROTEIN 6.2 G/DL (6.4-8.2); eGFR 44 ML/MIN
--- NOTE | 2022-09-22 13:21 | NUR ---
[address] JENNIFFER Mejia
--- NOTE | 2022-09-22 13:45 | NUR ---
Initial: Pt admit for schizophrenia. Currently on a regular diet and eating well, documented with average 89% PO intake meeting estimated nutrient needs. Per EMR no edema, skin is intact, and LBM 09/21. No nutrition intervention implemented at this time. Will continue to follow. Recommendations: 1) Continue regular diet 2) Bowel care PRN 3) Weekly scaled weights Addendum: 09/22/22 at [address] Amended: Links added.
[2022-09-22] MEDS: magnesium hydroxide 30ml (MOM) UD suspension PO PRN (16:21)
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
[2022-09-22] MEDS: traMADol 50MG tablet PO PRN (18:53)
[2022-09-22 19:00] VITALS: BP 124/67
[2022-09-23] MEDS: acetaminophen 325mg tablet PO PRN ×3 (01:05→14:46)
--- NOTE | 2022-09-23 01:20 | NUR ---
Nursing Progress Notes: Norberto Hanna Problem: 5150 states, Attending prescriber reports he needs safe hospitalization to titrate clozaril and gain stability. Losing placement due to mood instability and psychosis. Interventions: 1:1 assessment, establishment of rapport, therapeutic conversation, active listening, ensured contract for safety, medication administration/education/monitoring, fall prevention, IV fluid administration, lab value monitoring, constipation management, provided direction, reality orientation, limit setting, verbal de-escalation, positive reinforcement, LOS level of observation. Response: Pt was in his room yelling and complaining of pain. When this RN approached the pt he asked what took me so long and was rude and irritable. He asked where is my Tylenol, I have been waiting for 5 minutes. This RN reminded the patient to be nice and considered to staff as we are trying to help him. Pt was given PRN Ultram for sciatic 9/10 pain with good effect. Pt was up and walking to the community room for snacks and took all HS medications without issue. Pt continues on IV fluids NS 0.9% at 100 ml/hr. Pt is currently resting with no needs at this time. Plan: Pt is in need of medication adjustment and monitoring in a safe and therapeutic environment until stable.
[2022-09-23] MEDS ORDERED: LORazepam 0.5 MG tablet PO ONE (02:35)
[2022-09-23] MEDS: traMADol 50MG tablet PO PRN ×3 (03:27→21:16)
[2022-09-23] MEDS: normal saline 1000ml 1,000 ML IV SCH ×3 (04:02→23:05)
[2022-09-23] MEDS: clozapine 25mg tablet PO SCH ×2 (07:32→21:15)
[2022-09-23] MEDS: tamsulosin 0.4mg capsule PO SCH (07:32)
[2022-09-23] MEDS: HYDROCORTISONE 28.35 GM CREAM.GM. RC SCH ×2 (07:33→20:00)
[2022-09-23 08:00] VITALS: BP 110/68
[2022-09-23 12:30] LABS: ALANINE AMINOTRANSFERASE 27 U/L (12-78); ALBUMIN/GLOBULIN RATIO 0.9 (1.1-1.5); ALKALINE PHOSPHATASE 81 IU/L (46-116); ANION GAP 5 (8-16); ASPARTATE AMINO TRANSFERASE 17 U/L (10-37); BILIRUBIN,TOTAL 0.4 MG/DL (0.1-1.0); BLOOD UREA NITROGEN 35 MG/DL (7-18); CALCIUM 8.8 MG/DL (8.5-10.1); CHLORIDE 109 MMOL/L (99-107); CREATININE 1.59 MG/DL (0.60-1.10); GLUCOSE 86 MG/DL (70-104); POTASSIUM 4.4 MMOL/L (3.5-5.1); SODIUM 141 MMOL/L (135-145); TOTAL CARBON DIOXIDE 27.4 MMOL/L (24-32); TOTAL PROTEIN 6.2 G/DL (6.4-8.2); eGFR 44 ML/MIN
--- NOTE | 2022-09-23 15:11 | NUR ---
Nursing Progress Notes: Problem: 5150 states, Attending prescriber reports he needs safe hospitalization to titrate clozaril and gain stability. Losing placement due to mood instability and psychosis. Interventions: 1:1 assessment, establishment of rapport, therapeutic conversation, active listening, ensured contract for safety, medication administration/education/monitoring, fall prevention, IV fluid administration, lab value monitoring, infection control, constipation management, provided direction, reality orientation, limit setting, verbal de-escalation, positive reinforcement, LOS level of observation. Response: Pt was up for breakfast and cooperative with his medications. Pt was given PRN Tylenol 650 mg for 4/10 bilateral leg pain with good effect. Pt had also been given tramadol 50 mg on noc shift at 0327. Pt was in a better mood this morning. Pt stated, "I have no pain, I feel normal." Pt is delusional and grandiose. Pt reported that he did not have any bad dreams last night, "no, actually, I had better ones." Pt stated that the night before his bad dreams were about dying and going to Hell for other peoples sins. "Deshawn was 1st and I was 2nd." Pt stated that Deshawn was his older brother. Pt continues on IV fluids, BP this morning was 110/68. CMP was drawn and lab values appear to be stabilizing. BUN 35H, Cr 1.59H. EGFR 44 (yesterday: BUN 33, Cr 1.59, EGFR 44.) Pt c/o leg pain again 11/14 at 1101 and was given PRN tramadol 50 mg with temporary effect. He awoke from a nap at 1446 c/o leg pain again so was given the Tylenol for a 2nd time. Sitter/tech reported that pt's legs had appeared to be giving out as he was standing at the sink washing his hands. Tech also reported that pt had been dragging his right leg while walking to the dining room using FWW for lunch and so a w/c had been used to get him back to his room. Physical therapy came to see the patient around 1500. Pt's catheter leaked urine all down the hallway as he was walking with them. Pt stated, "I thought I tightened it." IV was paused, tubing disconnected, and site wrapped so that pt could shower. Tech sprayed the curry and room floor with disinfectant and then mopped it. PT reports that the patient's weak legs especially right leg is chronic and that staff needs to prompt the patient to lift it and swing it forward rather than drag it during ambulation. Plan: Pt is in need of medication adjustment and monitoring in a safe and therapeutic environment until stable.
[2022-09-23 19:00] VITALS: BP 110/62
--- NOTE | 2022-09-24 03:57 | NUR ---
RN PROGRESS NOTE: PROBLEM: 5150 states, Attending prescriber reports he needs safe hospitalization to titrate clozaril and gain stability. Losing placement due to mood instability and psychosis. INTERVENTIONS: Assessments and Q 15 min checks for safety. RESPONSE: Client c/o of burning sensation in both legs, pain in lower back radiating down both legs. Client was given Tramadol and later Tylenol. Initially irritable. Client stated "I don't have any purpose in life." Reported feeling life had little meaning and he was living in pain. Client does not see a reason to continue living. Reported "feeling angry" and having "terrible dreams". He was cooperative with medications. Refused the suppository. Depressed affect and mood.
[2022-09-24] MEDS: tamsulosin 0.4mg capsule PO SCH (07:55)
[2022-09-24] MEDS: acetaminophen 325mg tablet PO PRN (07:56)
[2022-09-24] MEDS: magnesium hydroxide 30ml (MOM) UD suspension PO PRN (07:57)
[2022-09-24] MEDS: HYDROCORTISONE 28.35 GM CREAM.GM. RC SCH ×2 (07:59→21:05)
[2022-09-24 08:00] VITALS: BP 101/57
[2022-09-24] MEDS: clozapine 25mg tablet PO SCH ×2 (09:42→21:05)
--- NOTE | 2022-09-24 11:12 | NUR ---
PAGER ID: [phone] MESSAGE: Wilton SOTELO re: Betty [place] 329 Patient is on NS for dehydration since the , has had 9 liter bags, sounds a little wet in the lungs, did you want to continue the NS?
[2022-09-24] MEDS: traMADol 50MG tablet PO PRN (16:25)
--- NOTE | 2022-09-24 17:15 | NUR ---
RN PROGRESS NOTE: PROBLEM: 5150 states, Attending prescriber reports he needs safe hospitalization to titrate clozaril and gain stability. Losing placement due to mood instability and psychosis. INTERVENTIONS: Assessments and Q 15 min checks for safety. RESPONSE: Client c/o of burning sensation in both legs, pain in lower back radiating down both legs. Client was given tylenol in AM and Tramadol in PM Client reported feeling as if the he had too much siliva and he felt that it was due to the fluids he was getting. Fluids were stopped and IV taken out and client felt much better about that change. Client was medicated so that he would be ready to walk to the group room and back with his FWW He was cooperative with medications. Depressed affect and mood.
[2022-09-24 19:30] VITALS: BP 104/63
[2022-09-25] MEDS: traMADol 50MG tablet PO PRN ×2 (01:05→09:26)
[2022-09-25] MEDS: Melatonin 3mg tablet PO PRN ×2 (01:05→19:59)
--- NOTE | 2022-09-25 04:36 | NUR ---
Nursing Progress Notes: Problem: 5150 states, Attending prescriber reports he needs safe hospitalization to titrate clozaril and gain stability. Losing placement due to mood instability and psychosis. Interventions: 1:1 assessment, establishment of rapport, therapeutic conversation, active listening, ensured contract for safety, medication administration/education/monitoring, fall prevention, IV fluid administration, lab value monitoring, infection control, constipation management, provided direction, reality orientation, limit setting, verbal de-escalation, positive reinforcement, LOS level of observation. Response: Upon turn of shift noted patient resting with eyes open on right side in bed. Appearance was clean and good hygiene noted, wearing clean green scrubs. Patient reports pain medication helped this evening however still showing s/sx of pain. No MH s/sx noted. Reports feeling, Good, I walked to dining room today for breakfast and lunch but needed a W/C for dinner since I couldnt make it with my walker. Pleasant, calm and cooperative. Uses walker. Patient reports feeling better since that was removed. Noted a wheeze throughout lung sounds however denies any SOB. Compliant with HS meds. PRN Ultram and Melatonin administered with success. Patient shouted out several times per LOS sitter. When RN assessed noted patient to have fallen back asleep and was snoring. When patient awoke from sleep again changed leg bag to 2000 ml F/C bag so patient can sleep through the night without having to wake him up to empty it. Also patient to perform catheter care on himself. Patient was agreeable to do this. Patient was experiencing feeling dizzy when he got up to BR at one point. Reports he got up slow at the time however when manual blood pressure was checked noted stable at 118/72. Slept well after Melatonin. Will continue to monitor. Plan: Pt is in need of medication adjustment and monitoring in a safe and therapeutic environment until stable.
[2022-09-25 07:30] VITALS: BP 113/80
[2022-09-25] MEDS: HYDROCORTISONE 28.35 GM CREAM.GM. RC SCH ×2 (08:00→19:59)
[2022-09-25] MEDS: clozapine 25mg tablet PO SCH ×2 (08:02→19:59)
[2022-09-25] MEDS: tamsulosin 0.4mg capsule PO SCH (08:02)
[2022-09-25] MEDS: acetaminophen 325mg tablet PO PRN (11:21)
[2022-09-25] MEDS ORDERED: nicotine 21mg patch - 24 hr TD ONE (14:05)
--- NOTE | 2022-09-25 17:55 | NUR ---
Nursing Progress Notes: Problem: 5150 states, Attending prescriber reports he needs safe hospitalization to titrate clozaril and gain stability. Losing placement due to mood instability and psychosis. Interventions: 1:1 assessment, establishment of rapport, therapeutic conversation, active listening, ensured contract for safety, medication administration/education/monitoring, fall prevention, IV fluid administration, lab value monitoring, infection control, constipation management, provided direction, reality orientation, limit setting, verbal de-escalation, positive reinforcement, LOS level of observation. Response: RN received pt. asleep in bed at start of shift. Pt. awoke for breakfast and took all medications. Pt. ambulating with FWW walker. Pt. went back to his room after breakfast and observed sleeping. 1:1 done at bedside, denies SI/HI, VH, but does report AH at times. Pt. reports feeling, OK. States, Having bad luck is better than having no luck at all. Pt. has indwelling joseph catheter which is draining clear, pale yellow urine. Catheter and marita-area cleaned using Provon wipes. Pt. moved into medical bed. Plan: Pt is in need of medication adjustment and monitoring in a safe and therapeutic environment until stable.
[2022-09-25] MEDS: magnesium hydroxide 30ml (MOM) UD suspension PO PRN (18:57)
[2022-09-25 19:54] VITALS: BP 106/59
[2022-09-26] MEDS: acetaminophen 325mg tablet PO PRN ×2 (03:02→11:39)
[2022-09-26] MEDS: traMADol 50MG tablet PO PRN ×2 (03:03→16:50)
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
[2022-09-26 07:30] VITALS: BP 96/100
[2022-09-26] MEDS: nicotine 21mg patch - 24 hr TD SCH (08:07)
[2022-09-26] MEDS: tamsulosin 0.4mg capsule PO SCH (08:27)
[2022-09-26] MEDS: clozapine 25mg tablet PO SCH ×2 (08:27→20:54)
[2022-09-26] MEDS: HYDROCORTISONE 28.35 GM CREAM.GM. RC SCH ×2 (08:59→20:53)
--- NOTE | 2022-09-26 15:23 | NUR ---
Norberto's sister, Beverly (ph# [phone]), called for an update. She reported she is looking into other housing options for Norberto. JENNIFFER Mejia
--- NOTE | 2022-09-26 17:48 | NUR ---
Catheter care done using Provon wipes
--- NOTE | 2022-09-26 17:48 | NUR ---
Nursing Progress Notes: Problem: 5150 states, Attending prescriber reports he needs safe hospitalization to titrate clozaril and gain stability. Losing placement due to mood instability and psychosis. Interventions: 1:1 assessment, establishment of rapport, therapeutic conversation, active listening, ensured contract for safety, medication administration/education/monitoring, fall prevention, IV fluid administration, lab value monitoring, infection control, constipation management, provided direction, reality orientation, limit setting, verbal de-escalation, positive reinforcement, LOS level of observation. Response: RN received pt. asleep in bed at start of shift. Pt. awoke for breakfast and took all medications. Pt. uses FWW to ambulate. 1:1 done at bedside, pt. denies SI/HI, A/V hallucinations. Pt. reports he feeling anxious today. Pt. states, I dont even have my insurance cards, I lost them How am I going to pay for this hospitalization? Pt. c/o bilateral leg pain and received Tylenol 650mg and Tramadol 50mg po with good effect. Plan: Pt is in need of medication adjustment and monitoring in a safe and therapeutic environment until stable.
[2022-09-26 20:00] VITALS: BP 126/68
[2022-09-26] MEDS ORDERED: clozapine 100mg tablet PO SCH (22:09)
[2022-09-27] MEDS: Melatonin 3mg tablet PO PRN ×2 (01:16→20:53)
[2022-09-27] MEDS: traMADol 50MG tablet PO PRN (01:16)
--- NOTE | 2022-09-27 02:00 | NUR ---
Nursing Progress Notes: Problem: 5150 states, Attending prescriber reports he needs safe hospitalization to titrate clozaril and gain stability. Losing placement due to mood instability and psychosis. Interventions: 1:1 assessment, establishment of rapport, therapeutic conversation, active listening, ensured contract for safety, medication administration/education/monitoring, fall prevention, IV fluid administration, lab value monitoring, infection control, constipation management, provided direction, reality orientation, limit setting, verbal de-escalation, positive reinforcement, LOS level of observation. Response: Pt lying in bed at the start of the shift and he remained there throughout, he did not attend HS snacks. Pt. reports feeling better, denied any psych symptoms. He was upset about the increase in his Clozaril, he thinks he should only take 50 mg or 25 mg 2 x day, he reports higher doses cause him muscle cramping. I encouraged him to discuss this with the Dr. Plan: Pt is in need of medication adjustment and monitoring in a safe and therapeutic environment until stable.
[2022-09-27 07:35] LABS: BASOPHILS % (AUTO) 0.2 % (0-1); EOSINOPHILS % (AUTO) 0.1 % (0-6); HEMATOCRIT 36.3 % (42.0-52.0); HEMOGLOBIN 12.2 g/dl (14.0-17.9); LYMPHOCYTES # (AUTO) 1.6 X10'3 (1.1-4.8); LYMPHOCYTES % (AUTO) 28.4 % (21-51); MEAN CORPUSCULAR HEMOGLOBIN 31.4 PG (27.0-31.0); MEAN CORPUSCULAR HGB CONC 33.6 g/dL (33.0-36.5); MEAN CORPUSCULAR VOLUME 93.4 FL (78-98); MEAN PLATELET VOLUME 7.9 FL (7.4-10.4); MONOCYTES % (AUTO) 17.6 % (2-12); NEUTROPHILS % (AUTO) 53.7 % (42-75); PLATELET COUNT 201 X10'3 (140-440); RED BLOOD COUNT 3.88 X10'6 (4.70-6.10); RED CELL DISTRIBUTION WIDTH 13.5 % (11.5-14.5); WHITE BLOOD COUNT 5.6 X10'3 (4.5-11.0)
[2022-09-27 08:00] VITALS: BP 100/65
[2022-09-27] MEDS: clozapine 25mg tablet PO SCH (08:00)
[2022-09-27] MEDS: HYDROCORTISONE 28.35 GM CREAM.GM. RC SCH ×2 (08:58→20:00)
[2022-09-27] MEDS: tamsulosin 0.4mg capsule PO SCH (08:59)
[2022-09-27] MEDS: nicotine 21mg patch - 24 hr TD SCH (08:59)
--- NOTE | 2022-09-27 16:59 | NUR ---
Nursing Progress Notes: Norberto Hatfield Problem: 5150 states, Attending prescriber reports he needs safe hospitalization to titrate clozaril and gain stability. Losing placement due to mood instability and psychosis. Interventions: 1:1 assessment, establishment of rapport, therapeutic conversation, active listening, ensured contract for safety, medication administration/education/monitoring, fall prevention, IV fluid administration, lab value monitoring, infection control, constipation management, provided direction, reality orientation, limit setting, verbal de-escalation, positive reinforcement, LOS level of observation. Response: Patient is pleasant and cooperative this shift although he did refuse scheduled Clozaril, he thinks he should only take 50 mg or 25 mg 2 x day, he reports that the higher dose causes him muscle cramping. Per Dr. Odonnell note- We will continue on current dosage. Patient was accepting of all other scheduled medication administration. Patient was observed in the community room for meals, he spent most of the shift in his room laying down. Patient denies SI/HI and hallucinations. Patient is independent in managing his joseph catheter, provon wipes provided and joseph care completed by patient. Patient received a shower and linen change this shift with standby assistance. Plan: Pt is in need of medication adjustment and monitoring in a safe and therapeutic environment until stable.
[2022-09-27 19:58] VITALS: BP 109/67
[2022-09-27] MEDS: clozapine 100mg tablet PO SCH ×2 (20:53→21:00)
[2022-09-27] MEDS: acetaminophen 325mg tablet PO PRN (21:02)
[2022-09-27] MEDS ORDERED: CLOZAPINE 25 MG oral disintegrating tablet PO ONE (21:40)
--- NOTE | 2022-09-28 04:50 | NUR ---
ursing Progress Notes: Problem: 5150 states, Attending prescriber reports he needs safe hospitalization to titrate clozaril and gain stability. Losing placement due to mood instability and psychosis. Interventions: 1:1 assessment, establishment of rapport, therapeutic conversation, active listening, ensured contract for safety, medication administration/education/monitoring, fall prevention, IV fluid administration, lab value monitoring, infection control, constipation management, provided direction, reality orientation, limit setting, verbal de-escalation, positive reinforcement, LOS level of observation. Response: Upon turn of shift noted patient sitting up in dining room eating. Appearance was clean and well-groomed with hair brushed back. Wearing clean street clothes except for green scrub pants, black vest and his eye glasses. Steady while with FWW. F/C intact. F/C care completed per patient. Urine clear light yellow. Pleasant, calm and cooperative. Denies all MH s/sx. Reports, all the cobwebs are gone. Im ready to enter the [facility] when its my time. No behaviors or delusions noted. Appropriate affect and appears to be in a good mood. Med compliant except for refusing 100 mg Clozaril tonight. Agreed to take 50 mg. Patient reports that he had conversation with provider today and understood Clozaril dose was going to be decreased. Patient reports that he is unsteady after taking it and doesnt want to fall as he is a fall risk. Removed Nicotine patch per self earlier on in the day. PRN Melatonin and Tylenol given. Slept well. Next CBC 10/04. Will continue to monitor Plan: Pt is in need of medication adjustment and monitoring in a safe and therapeutic environment until stable.
[2022-09-28 08:00] VITALS: BP 105/72
[2022-09-28] MEDS: nicotine 21mg patch - 24 hr TD SCH (08:35)
[2022-09-28] MEDS: tamsulosin 0.4mg capsule PO SCH (08:35)
[2022-09-28] MEDS: clozapine 25mg tablet PO SCH ×2 (08:36→20:36)
[2022-09-28] MEDS: HYDROCORTISONE 28.35 GM CREAM.GM. RC SCH ×2 (08:51→20:32)
[2022-09-28] MEDS: traMADol 50MG tablet PO PRN ×2 (13:34→20:31)
--- NOTE | 2022-09-28 14:10 | NUR ---
ursing Progress Notes: Problem: 5150 states, Attending prescriber reports he needs safe hospitalization to titrate clozaril and gain stability. Losing placement due to mood instability and psychosis. Interventions: 1:1 assessment, establishment of rapport, therapeutic conversation, active listening, ensured contract for safety, medication administration/education/monitoring, fall prevention, IV fluid administration, lab value monitoring, infection control, constipation management, provided direction, reality orientation, limit setting, verbal de-escalation, positive reinforcement, LOS level of observation. Response:PT ambulates with FWW. Sears is intact, Urine clear light yellow. Pt empties it himself. Pt states he slept well and is cooperative with assessment and med compliant. He makes no delusional statements and denies all mental health symptoms. He is well groomed and pleasant. Plan: Pt is in need of medication adjustment and monitoring in a safe and therapeutic environment until stable.
[2022-09-28 19:40] VITALS: BP 104/63
[2022-09-28] MEDS: Melatonin 3mg tablet PO PRN (20:30)
[2022-09-28] MEDS: acetaminophen 325mg tablet PO PRN (20:31)
[2022-09-28] MEDS ORDERED: pramoxine 1% foam spray 15gm TP SCH (21:06)
--- NOTE | 2022-09-29 04:47 | NUR ---
Nursing Progress Notes: Problem: 5150 states, Attending prescriber reports he needs safe hospitalization to titrate clozaril and gain stability. Losing placement due to mood instability and psychosis. Interventions: 1:1 assessment, establishment of rapport, therapeutic conversation, active listening, ensured contract for safety, medication administration/education/monitoring, fall prevention, IV fluid administration, lab value monitoring, infection control, constipation management, provided direction, reality orientation, limit setting, verbal de-escalation, positive reinforcement, LOS level of observation. Response: Upon turn of shift noted patient to be well groomed with clean clothes on sitting up in dining room socializing with cohorts. Received orders from [facility] for decrease in Clozaril 50 mg at HS. Patient wants the evening dose to be 25 mg, thinks it may be too much. PRN Melatonin, Tramadol and Tylenol. F/C intact. Up with FWW. F/C bag intact. Asymptomatic with clear, yellow urine noted. F/C care complete per patient. Denies complaints. Denies MH s/sx. Was telling this nurse about his plan to d/c on or Monday to the [facility], Ill get something like a TURP done coming up. Per Morenita noted reports patient will be having the UroLift procedure. Noted patient smacking his lips as if he were thirsty. Reports, I have a cavity. Offered water and patient reports that its involuntary, feels like Im chewing gum, without the gum. Will make dayshift aware to pass on to MD this am. Slept well. Will continue to monitor. Plan: Pt is in need of medication adjustment and monitoring in a safe and therapeutic environment until stable.
[2022-09-29 07:39] VITALS: BP 98/60
[2022-09-29] MEDS: tamsulosin 0.4mg capsule PO SCH (09:10)
[2022-09-29] MEDS: clozapine 25mg tablet PO SCH ×3 (09:10→20:46)
[2022-09-29] MEDS: hydrocort. acetate/pramoxine 10gm bottle RC SCH ×2 (09:12→20:46)
[2022-09-29] MEDS: nicotine 21mg patch - 24 hr TD SCH (09:14)
--- NOTE | 2022-09-29 13:03 | NUR ---
Emailed Manish Wen ([facility]) and Manuel ([facility]) requesting an interview for [facility]. JENNIFFER Mejia
[2022-09-29] MEDS: traMADol 50MG tablet PO PRN (14:13)
--- NOTE | 2022-09-29 16:33 | NUR ---
Nursing Progress Notes: Norberto Problem: 5150 states, Attending prescriber reports he needs safe hospitalization to titrate clozaril and gain stability. Losing placement due to mood instability and psychosis. Interventions: 1:1 assessment, establishment of rapport, therapeutic conversation, active listening, ensured contract for safety, medication administration/education/monitoring, fall prevention, management, provided direction, reality orientation. Response: Pt. received asleep and awoke to take his medications without hesitation. Pt. denies SI, HI, AH, VH and reports he has an upcoming interview for placement. He is cooperative, reports minimal anxiety, and has good eye contact. He continues to use FWW to ambulate adlib, FC remains in place patent draining straw colored urine to gravity. Pt. spent most of the shift sitting on his bed making calls and watching tv in the afternoon amongst cohorts, but doesnt socialize much. He has fair hygiene, groomed, and wears street clothes Plan: Pt is in need of medication adjustment and monitoring in a safe and therapeutic environment until stable.
--- NOTE | 2022-09-29 17:24 | NUR ---
MANAGER INCOME TAX documentation: I have reviewed and agree with all interventions, assessments performed and documented by Tesha TIRADO.
[2022-09-29 20:00] VITALS: BP 103/65
[2022-09-29] MEDS: Melatonin 3mg tablet PO PRN (20:46)
[2022-09-30 08:00] VITALS: BP 115/73
[2022-09-30] MEDS: clozapine 25mg tablet PO SCH ×3 (08:05→21:02)
[2022-09-30] MEDS: nicotine 21mg patch - 24 hr TD SCH (08:05)
[2022-09-30] MEDS: tamsulosin 0.4mg capsule PO SCH (08:05)
[2022-09-30] MEDS: hydrocort. acetate/pramoxine 10gm bottle RC SCH ×2 (08:11→20:19)
[2022-09-30] MEDS: traMADol 50MG tablet PO PRN ×2 (11:30→19:05)
--- NOTE | 2022-09-30 16:18 | NUR ---
Nursing Progress Notes: Norberto Problem: 5150 states, Attending prescriber reports he needs safe hospitalization to titrate clozaril and gain stability. Losing placement due to mood instability and psychosis. Interventions: 1:1 assessment, establishment of rapport, therapeutic conversation, active listening, ensured contract for safety, medication administration/education/monitoring, fall prevention, management, provided direction, reality orientation. Response: Pt. received asleep, and awoke to take his medications without hesitation. Pt. has a FC patent draining clear straw colored urine to gravity, and uses a FWW to ambulate adlib. He reported low back and leg pain; PRN Tramadol given with good effects. Pt. spent time in the community room watching tv with cohorts, and interacts appropriately. Pt. refused his afternoon medication d/t complaints of sedation. He has good eye contact, cooperative, and fair hygiene. Plan: Pt is in need of medication adjustment and monitoring in a safe and therapeutic environment until stable.
[2022-09-30 19:00] VITALS: BP 113/73
[2022-09-30] MEDS: acetaminophen 325mg tablet PO PRN (19:04)
[2022-09-30] MEDS: Melatonin 3mg tablet PO PRN (20:19)
--- NOTE | 2022-10-01 05:19 | NUR ---
Nursing Progress Notes: Norberto Problem: 5150 states, Attending prescriber reports he needs safe hospitalization to titrate clozaril and gain stability. Losing placement due to mood instability and psychosis. Interventions: 1:1 assessment, establishment of rapport, therapeutic conversation, active listening, ensured contract for safety, medication administration/education/monitoring, fall prevention, management, provided direction, reality orientation. Response: Patient in dining room eating dinner. Pt then went back to his room after c/o burning in his legs. Pt uses a FWW for assistance. Pt was medicated with Tylenol 650mg and Ultram 50mg for pain 02/14. Pt denies SI/HI/AVH. Pt only took of his Seroquel. He took 25mg out of 50mg. I told the doctor I would only take 25mg because this stuff is killing me, I cant hardly walk because of it. Melatonin 3mg given for insomnia. Sears is secure and draining clear yellow urine. Monitor for safety Plan: Pt is in need of medication adjustment and monitoring in a safe and therapeutic environment until stable.
[2022-10-01] MEDS: tamsulosin 0.4mg capsule PO SCH (07:56)
[2022-10-01] MEDS: clozapine 25mg tablet PO SCH ×4 (07:56→20:40)
[2022-10-01] MEDS: hydrocort. acetate/pramoxine 10gm bottle RC SCH ×2 (07:56→20:30)
[2022-10-01] MEDS: nicotine 21mg patch - 24 hr TD SCH (07:56)
[2022-10-01 08:00] VITALS: BP 106/63
--- NOTE | 2022-10-01 10:50 | NUR ---
Reassessment: Pt continues eating well, documented with mostly 100% PO intake on regular diet meeting estimated nutrient needs. LBM 09/30 per EMR. No nutrition intervention implemented at this time. Will continue to follow and make recommendations as appropriate. Recommendations: 1) Continue regular diet 2) Bowel care PRN 3) Weekly scaled weights Addendum: 10/01/22 at [address] Amended: Links added.
--- NOTE | 2022-10-01 16:40 | NUR ---
Nursing Progress Notes: Norberto Problem: 5150 states, Attending prescriber reports he needs safe hospitalization to titrate clozaril and gain stability. Losing placement due to mood instability and psychosis. Interventions: 1:1 assessment, establishment of rapport, therapeutic conversation, active listening, ensured contract for safety, medication administration/education/monitoring, fall prevention, management, provided direction, reality orientation. Response: Pt. received asleep and awoke to attend breakfast. Pt denies SI, HI, AH, VH and perseverates on an upcoming surgery. Pt. presents with good eye contact, anxiousness, and restless. He ate all meals in the community room with cohorts. Pt. refused clozapine he stated its making me crippled Pt. spent time in his room making calls and writing out lists. Pt. uses a FWW and continues to drag/ shuffle his Lt foot. Pt. has good hygiene, well groomed, and is wearing unit scrub.
--- NOTE | 2022-10-01 18:04 | NUR ---
Sae's sister Beverly called. She asked that he be given the message that she went up to [place] today and picked up all his belongings including the coat and wallet which had been lost and then found at [facility]. She also picked up all his boxes and suitcases. She is tired from the trip so will call him tomorrow. Relayed the message to
[2022-10-01] MEDS: traMADol 50MG tablet PO PRN (18:52)
[2022-10-01 19:00] VITALS: BP 106/65
[2022-10-01] MEDS: Melatonin 3mg tablet PO PRN (20:30)
--- NOTE | 2022-10-02 05:33 | NUR ---
Nursing Progress Notes: Norberto Problem: 5150 states, Attending prescriber reports he needs safe hospitalization to titrate Clozaril and gain stability. Losing placement due to mood instability and psychosis. Interventions: 1:1 assessment, establishment of rapport, therapeutic conversation, active listening, ensured contract for safety, medication administration/education/monitoring, fall prevention, management, provided direction, reality orientation. Response: Pt is received in the hallway where he asked for pain medication for burning pain in his legs. Pain level is 7/10. Ultram 50 mg given. Pt denies he is here for mental illness issues. I need to stop taking the Clozapine because it is making me a cripple. Denies SI/HI/AVH. Pt seems paranoid regarding his medications are what side effects they cause. Pt would only take half the dose of his 50 mg Clozapine. I discussed it with the doctor and he told me he would change the dose to 25 mg. Pt ambulates with a FWW with a steady gait. Pts joseph is in place draining clear yellow urine. Continue to monitor for safety. Plan: Pt is in need of medication adjustment and monitoring in a safe and therapeutic environment until stable.
[2022-10-02] MEDS: traMADol 50MG tablet PO PRN ×2 (06:12→18:24)
[2022-10-02 07:43] VITALS: BP 100/64
[2022-10-02] MEDS: tamsulosin 0.4mg capsule PO SCH (08:01)
[2022-10-02] MEDS: clozapine 25mg tablet PO SCH ×3 (08:01→20:57)
[2022-10-02] MEDS: nicotine 21mg patch - 24 hr TD SCH (08:02)
[2022-10-02] MEDS: hydrocort. acetate/pramoxine 10gm bottle RC SCH ×2 (08:04→20:57)
--- NOTE | 2022-10-02 17:37 | NUR ---
Nursing Progress Notes: Norberto Low Problem: 5150 states, Attending prescriber reports he needs safe hospitalization to titrate clozaril and gain stability. Losing placement due to mood instability and psychosis. Interventions: Provided 1:1 assessment, therapeutic conversation, active listening, ensured contract for safety, medication administration/education/monitoring, fall prevention, reality orientation, and Q15 minute safety rounds. Response: Patient received sleeping in his room at shift change. He awoke shortly before breakfast and was noted ambulating around the unit with his 4WW. Pt was receptive to his scheduled morning medication with no hesitancy. He denies SI/HI, AH or VH. Does not appear to be responding to IS. Pt noted to be reserved and isolative to his room. Patient refused his scheduled Clozaril 25mg with lunch. Pt endorsing that he wont be able to walk if he takes it. ADRIAN Ackerman notified. Sears catheter remains intact with no complications noted. He joined for all meal and snack times in the group room with peers. Plan: Pt is in need of medication adjustment and monitoring in a safe and therapeutic environment.
[2022-10-02] MEDS: magnesium hydroxide 30ml (MOM) UD suspension PO PRN (19:08)
[2022-10-02 20:08] VITALS: BP 104/59
[2022-10-02] MEDS: Melatonin 3mg tablet PO PRN (20:56)
[2022-10-02] MEDS: acetaminophen 325mg tablet PO PRN (20:57)
[2022-10-03] MEDS: traMADol 50MG tablet PO PRN ×2 (01:07→18:15)
--- NOTE | 2022-10-03 05:22 | NUR ---
Nursing Progress Notes: Norberto Problem: 5150 states, Attending prescriber reports he needs safe hospitalization to titrate Clozaril and gain stability. Losing placement due to mood instability and psychosis. Interventions: 1:1 assessment, establishment of rapport, therapeutic conversation, active listening, ensured contract for safety, medication administration/education/monitoring, fall prevention, management, provided direction, reality orientation. Response: Pt is received in his room. Pt denies SI/HI/AVH. Pt is c/o constipation and wanted MOM. Pt had a BM yesterday but had difficulty passing the stool. I need to stop taking the Clozapine because it is making me a cripple. Pt seems paranoid regarding his medications and relates the Clozapine to his leg pain. I have really bad sciatic nerve pain. Pt would only take 25mg, which is half the dose of his 50 mg Clozapine again for the 3rd night. I discussed it with the doctor and he told me he would change the dose to 25 mg. Pt ambulates with a FWW with a steady gait. Pts joseph is in place draining clear yellow urine. Continue to monitor for safety. Plan: Pt is in need of medication adjustment and monitoring in a safe and therapeutic environment until stable.
[2022-10-03 08:00] VITALS: BP 96/60
[2022-10-03] MEDS: tamsulosin 0.4mg capsule PO SCH (08:17)
[2022-10-03] MEDS: clozapine 25mg tablet PO SCH ×3 (08:17→19:42)
[2022-10-03] MEDS: nicotine 21mg patch - 24 hr TD SCH (08:18)
[2022-10-03] MEDS: hydrocort. acetate/pramoxine 10gm bottle RC SCH ×2 (08:31→19:36)
--- NOTE | 2022-10-03 17:25 | NUR ---
Nursing Progress Notes: Norberto Low Problem: 5150 states, Attending prescriber reports he needs safe hospitalization to titrate clozaril and gain stability. Losing placement due to mood instability and psychosis. Interventions: Provided 1:1 assessment, therapeutic conversation, active listening, ensured contract for safety, medication administration/education/monitoring, fall prevention, reality orientation, and Q15 minute safety rounds. Response: Patient received sleeping in bed at change of shift. He joined for breakfast in the group room with peers. Pt continues to ambulate with a 4WW. He presents with paranoia regarding his medication. Patient hesitant yet receptive to scheduled medication. Pt denies all MH symptoms. He refused his scheduled Clozaril 25mg at lunch time despite education and encouragement. ADRIAN Ackerman notified. Sears catheter remains intact with no complications noted. Pt was noted sitting in the group room periodically watching TV with peers today. He joined for all meal and snack times. Plan: Pt is in need of medication adjustment and monitoring in a safe and therapeutic environment Addendum: 10/03/22 at 1817 by Geni Kern LVN Pt approached this technical proposal writer at the end of shift with c/o bilateral lower leg pain /. Pt given PRN Ultram per MD order.
--- NOTE | 2022-10-03 17:45 | NUR ---
REGIONAL SALES DIRECTOR documentation: I have reviewed all interventions, assessments performed and documented by CANDIDA Arechiga.
[2022-10-03 19:22] VITALS: BP 106/61
[2022-10-03] MEDS: acetaminophen 325mg tablet PO PRN (19:36)
[2022-10-03] MEDS: magnesium hydroxide 30ml (MOM) UD suspension PO PRN (19:49)
--- NOTE | 2022-10-04 05:10 | NUR ---
Nursing Progress Notes: Problem: 5150 states, Attending prescriber reports he needs safe hospitalization to titrate clozaril and gain stability. Losing placement due to mood instability and psychosis. Interventions: Provided 1:1 assessment, therapeutic conversation, active listening, ensured contract for safety, medication administration/education/monitoring, fall prevention, reality orientation, and Q15 minute safety rounds. Response: Upon turn of shift noted patient resting in bed with eyes open. Noted patient to be well-groomed and in clean clothes. Denies MH s/sx. No delusional statements or behaviors noted. Reports being in a, good, mood today, took a few naps today in which he dreamed a lot. I wanted so bad to go back to the dream, I dont know why. Reports, legs feel like lead.., when referring to Clozaril medication. Im on 25 and 25 daily. Received HS meds, compliant even with Clozaril 50 mg dose. PRN Tylenol and M.O.M given. Removed nicotine patch. Noted mild lip smacking, patient reports that he thinks its because of the cavity he has to right upper jaw, feels like a piece of gum. Slept well this shift. social services technician emailed [facility] for an interview 09/29. Interview date/time pending. Will continue to monitor. Plan: Pt is in need of medication adjustment and monitoring in a safe and therapeutic environment Addendum: 10/04/22 at 0515 by Rosanna Pathak RN F/C care continues. F/C patent and draining clear yellow urine. Pending UroLift upon discharge.
[2022-10-04 07:32] LABS: BASOPHILS % (AUTO) 0.5 % (0-1); EOSINOPHILS % (AUTO) 0 % (0-6); HEMOGLOBIN 11.9 g/dl (14.0-17.9); LYMPHOCYTES # (AUTO) 1.7 X10'3 (1.1-4.8); LYMPHOCYTES % (AUTO) 29.7 % (21-51); MEAN CORPUSCULAR HEMOGLOBIN 31.5 PG (27.0-31.0); MEAN CORPUSCULAR HGB CONC 33.8 g/dL (33.0-36.5); MEAN CORPUSCULAR VOLUME 93.1 FL (78-98); MEAN PLATELET VOLUME 7.8 FL (7.4-10.4); MONOCYTES # (AUTO) 0.9 X10'3 (0-0.9); MONOCYTES % (AUTO) 16.2 % (2-12); NEUTROPHILS # (AUTO) 3.1 X10'3 (1.8-7.7); NEUTROPHILS % (AUTO) 53.6 % (42-75); PLATELET COUNT 226 X10'3 (140-440); RED BLOOD COUNT 3.76 X10'6 (4.70-6.10); WHITE BLOOD COUNT 5.8 X10'3 (4.5-11.0)
[2022-10-04] MEDS: tamsulosin 0.4mg capsule PO SCH (07:37)
[2022-10-04] MEDS: clozapine 25mg tablet PO SCH ×3 (07:37→20:10)
[2022-10-04] MEDS: nicotine 21mg patch - 24 hr TD SCH (07:38)
[2022-10-04] MEDS: hydrocort. acetate/pramoxine 10gm bottle RC SCH ×2 (07:39→20:11)
[2022-10-04 08:00] VITALS: BP 97/54
[2022-10-04] MEDS ORDERED: docusate sod 100mg capsule PO PRN (10:40)
--- NOTE | 2022-10-04 12:13 | NUR ---
INTERVIEW FOR [facility] 10/06/22 AT 10:30 AM Billie from [facility] (ph# [phone]) will come interview Norberto on . JENNIFFER Mejia
[2022-10-04] MEDS: magnesium hydroxide 30ml (MOM) UD suspension PO PRN (13:40)
--- NOTE | 2022-10-04 17:31 | NUR ---
Nursing Progress Notes: Norberto Low Problem: 5150 states, Attending prescriber reports he needs safe hospitalization to titrate clozaril and gain stability. Losing placement due to mood instability and psychosis. Interventions: Provided 1:1 assessment, therapeutic conversation, active listening, ensured contract for safety, medication administration/education/monitoring, fall prevention, reality orientation, and Q15 minute safety rounds. Response: Patient received sleeping in his room at shift change. Pt was compliant with scheduled morning medication. He joined for all meal and snack times in the group room today. Pt continues to ambulate with a 4WW. He continues to present with paranoia regarding his medication. Pt noted refusing his scheduled Clozaril 25mg PO at lunch time. He denies SI/HI, AH or VH. Pt noted to be upset that his sister hasnt called him in the last two days. Stated if she doesnt want to talk to me, I dont want to talk to her. Pt also stating that she doesnt have time for him. Sears catheter remains intact with no complications noted. He was given PRN Milk of Mag on this shift for c/o hard stool. Pt noted resting in his bed the majority of the shift. He was observed walking around the unit at times and sitting with peers in the group room. He joined for all meal and snack times this shift. Plan: Pt is in need of medication adjustment and monitoring in a safe and therapeutic environment. Addendum: 10/04/22 at 1823 by Geni Kern LVN Pt approached this marketing writer at the end of shift with c/o bilateral lower leg pain. Pt given PRN Ultram per MD order.
--- NOTE | 2022-10-04 17:57 | NUR ---
LICENSED LOAN OFFICER documentation: I have reviewed all interventions, assessments performed and documented by CANDIDA Arechiga.
[2022-10-04] MEDS: traMADol 50MG tablet PO PRN (18:23)
[2022-10-04 19:23] VITALS: BP 114/71
[2022-10-04] MEDS ORDERED: bisacodyl 10mg suppository rectal RC PRN (20:00)
[2022-10-04] MEDS: docusate sod 100mg capsule PO SCH (20:11)
[2022-10-04] MEDS: acetaminophen 325mg tablet PO PRN (20:32)
[2022-10-05] MEDS: magnesium hydroxide 30ml (MOM) UD suspension PO PRN (00:10)
--- NOTE | 2022-10-05 04:22 | NUR ---
Nursing Progress Notes: Problem: 5150 states, Attending prescriber reports he needs safe hospitalization to titrate clozaril and gain stability. Losing placement due to mood instability and psychosis. Interventions: Provided 1:1 assessment, therapeutic conversation, active listening, ensured contract for safety, medication administration/education/monitoring, fall prevention, reality orientation, and Q15 minute safety rounds. Response: Upon turn of shift noted patient sitting up at bedside. Appearance is well-groomed and good hygiene wearing street clothes. Reports constipation. Cant poop, its hard. Reports that he received M.O.M today and last night and did not work. Patient attempted manual disimpaction technique without success. Called MD, received Bisacodyl suppository PRN and changed Colace order to scheduled 200 mg BID. Received PRN Tylenol 650 mg po, and M.O.M and Bisacodyl rectal suppository this shift. Nicotine patch removed. Got up in the middle of the night and did pass some hard stool. Offered M.O.M at that time and patient agreed to take it. Noted FWW being dragged on floor upon ambulation making a loud sound. Patient reports that he almost fell and, My legs feel like lead, referring to taking the 50 mg of Clozaril as opposed to 25 mg. Patient says hed like to take 25 mg of Clozaril po moving forward at night since the higher dose makes him feel unsteady. WBC is WNL at 5.8 and is trending downward. Next lab check 10/11. F/C remains intact, patent and draining. F/C cleaning continues. Patient slept well this shift. Will continue to monitor. Plan: Pt is in need of medication adjustment and monitoring in a safe and therapeutic environment.
[2022-10-05 07:34] VITALS: BP 104/57
[2022-10-05] MEDS: tamsulosin 0.4mg capsule PO SCH (07:54)
[2022-10-05] MEDS: clozapine 25mg tablet PO SCH ×3 (07:54→20:59)
[2022-10-05] MEDS: hydrocort. acetate/pramoxine 10gm bottle RC SCH ×2 (07:54→20:42)
[2022-10-05] MEDS: docusate sod 100mg capsule PO SCH ×2 (07:54→20:41)
[2022-10-05] MEDS: nicotine 21mg patch - 24 hr TD SCH (08:00)
--- NOTE | 2022-10-05 16:15 | NUR ---
Nursing Progress Notes: Norberto Problem: 5150 states, Attending prescriber reports he needs safe hospitalization to titrate clozaril and gain stability. Losing placement due to mood instability and psychosis. Interventions: 1:1 assessment, establishment of rapport, therapeutic conversation, active listening, ensured contract for safety, medication administration/education/monitoring, fall prevention, management, provided direction, reality orientation. Response: Pt. received asleep, and awoke to take his medications without hesitation. Pt. denies SI, HI, AH, VH and states Im waiting for my sister, its been 2 days Pt. presents with good eye contact, and cooperative. Pt. continues to use FWW walker to ambulate adlib and has a FC patent draining straw color urine to gravity. Pt. received a suppository yesterday and has had one BM since; prune juice given. He ate all his meals in the community room with cohorts, he often keeps to himself and doesnt socialize with others. He has fair hygiene, groomed, and wears street clothes. Plan: Pending placement
--- NOTE | 2022-10-05 17:38 | NUR ---
DISABILITIES CAREGIVER documentation: I have reviewed and agree with all interventions, assessments performed and documented by ROBBIE TIRADO.
[2022-10-05 19:00] VITALS: BP 112/69
[2022-10-05] MEDS: traMADol 50MG tablet PO PRN (20:59)
--- NOTE | 2022-10-06 04:54 | NUR ---
Nursing Progress Notes: Norberto Problem: 5150 states, Attending prescriber reports he needs safe hospitalization to titrate clozaril and gain stability. Losing placement due to mood instability and psychosis. Interventions: 1:1 assessment, establishment of rapport, therapeutic conversation, active listening, ensured contract for safety, medication administration/education/monitoring, fall prevention, management, provided direction, reality orientation. Response: Patient was found sleeping in bed at beginning of shift. Patient became very upset when nurse brought in night medications due to dr increasing his clozapine to 50 mg. Patient stated the dose causes him to become dizzy and fall. Patient requested prn tramadol for hip and leg pain. Patient was observed emptying his own catheter bag. Patient self isolated in room all shift. Patient did not struggle with sleeping. Patient denied ah/vh and stated he didn't care if he and neither dose anyone else. Plan: Pending placement
[2022-10-06] MEDS: clozapine 25mg tablet PO SCH ×3 (07:56→20:53)
[2022-10-06] MEDS: docusate sod 100mg capsule PO SCH ×2 (07:56→20:52)
[2022-10-06] MEDS: tamsulosin 0.4mg capsule PO SCH (07:56)
[2022-10-06] MEDS: hydrocort. acetate/pramoxine 10gm bottle RC SCH (07:58)
[2022-10-06] MEDS: nicotine 21mg patch - 24 hr TD SCH (07:59)
[2022-10-06 08:28] VITALS: BP 100/60
--- NOTE | 2022-10-06 11:47 | NUR ---
ACCEPTED AT [facility] They would like to admit him on 10/10/22. Will complete paperwork and request chest x-ray and 30 day supply of meds. JENNIFFER Mejia
[2022-10-06] MEDS ORDERED: TRAM50TA2 PO (12:51)
[2022-10-06] MEDS ORDERED: NICO-687 TD (12:51)
[2022-10-06] MEDS ORDERED: HYDR30CR79 TOP (12:51)
[2022-10-06] MEDS ORDERED: FLO0.4C PO (12:51)
[2022-10-06] MEDS ORDERED: NICO-907 BC (12:51)
--- NOTE | 2022-10-06 16:11 | NUR ---
Nursing Progress Notes: Norberto Problem: 5150 states, Attending prescriber reports he needs safe hospitalization to titrate clozaril and gain stability. Losing placement due to mood instability and psychosis. Interventions: 1:1 assessment, establishment of rapport, therapeutic conversation, active listening, ensured contract for safety, medication administration/education/monitoring, fall prevention, management, provided direction, reality orientation. Response: Pt. received asleep and awoke just before breakfast. He denies SI, HI, AH,VH and reports his family is assisted with finding placement. He took his medications without hesitation, continues to use his FWW walker to ambulate adlib. Pt. presents as slightly anxious, with good eye contact, and has fair hygiene. Pt. has a FC patent, draining pale yellow urine to gravity. He refused his Clozaril 1230 dose stating I not taking it, it paralyzes me, I only want it in the morning and night provider notified. He ate all meals in the community room, sits with cohorts but keeps to himself. He is fairly groomed and wears scrubs and street clothes. Plan: Pending placement
--- NOTE | 2022-10-06 17:30 | NUR ---
MEDICAL RECEPTION SPECIALIST documentation: I have reviewed and agree with all interventions, assessments performed and documented by Tesha TIRADO.
[2022-10-06] MEDS: traMADol 50MG tablet PO PRN (18:31)
--- NOTE | 2022-10-07 04:30 | NUR ---
Nursing Progress Notes: Norberto Problem: 5150 states, Attending prescriber reports he needs safe hospitalization to titrate clozaril and gain stability. Losing placement due to mood instability and psychosis. Interventions: 1:1 assessment, establishment of rapport, therapeutic conversation, active listening, ensured contract for safety, medication administration/education/monitoring, fall prevention, management, provided direction, reality orientation. Response: Patient was found in community room at beginning of shift. Patient came to nurse asking for prn pain medication. Patient was given prn tramadol and retuned to bed. Patient later asked if his hemorrhoid spray could be traded out for a cream. Pharmacy was called and the switch was made. Patient self isolated in room and emptied his own catheter bag. Patient again refused to take full does of clozapine accepting 25mg only. Plan: Pending placement
[2022-10-07] MEDS: docusate sod 100mg capsule PO SCH ×2 (07:53→20:35)
[2022-10-07] MEDS: nicotine 21mg patch - 24 hr TD SCH (07:53)
[2022-10-07] MEDS: clozapine 25mg tablet PO SCH ×4 (07:53→20:44)
[2022-10-07] MEDS: tamsulosin 0.4mg capsule PO SCH (07:55)
[2022-10-07 08:00] VITALS: BP 105/61
[2022-10-07] MEDS: PHENYLEPH/MIN OIL/PETROLAT hemorrhoid oint 57GM tube RC SCH ×2 (08:00→20:35)
[2022-10-07] MEDS: magnesium hydroxide 30ml (MOM) UD suspension PO PRN (11:39)
--- NOTE | 2022-10-07 16:01 | NUR ---
Nursing Progress Notes: Norberto Problem: 5150 states, Attending prescriber reports he needs safe hospitalization to titrate clozaril and gain stability. Losing placement due to mood instability and psychosis. Interventions: 1:1 assessment, establishment of rapport, therapeutic conversation, active listening, ensured contract for safety, medication administration/education/monitoring, fall prevention, management, provided direction, reality orientation. Response: Pt. received asleep in his room, required rounding to attend breakfast. He denies SI, HI, AH,VH, LBM was 3 days ago, MOM administered with results pending. Pt. presents with good eye contact, is cooperative, and calm. He reported last FC change was over 30 days ago, per policy hospitalist was notified with further instructions requested. FC is patent draining straw colored urine to gravity. He continues to utilize FWW to ambulate adlib. He spent time napping in his room, ate all meals in the community room with cohorts. Pt. continues to be provided with education re handwashing, has overall good hygiene, well groomed, and wears scrubs. Pt. again refused Clozaril 1230 dose. Plan: Pending placement
[2022-10-07] MEDS: traMADol 50MG tablet PO PRN (18:21)
[2022-10-07 19:00] VITALS: BP 107/65
--- NOTE | 2022-10-08 04:18 | NUR ---
Nursing Progress Notes: Norberto Problem: 5150 states, Attending prescriber reports he needs safe hospitalization to titrate Clozaril and gain stability. Losing placement due to mood instability and psychosis. Interventions: 1:1 assessment, establishment of rapport, therapeutic conversation, active listening, ensured contract for safety, medication administration/education/monitoring, fall prevention, management, provided direction, reality orientation. Response: Patient was received sleeping in bed at beginning of shift. Patient self isolated and slept all shift. Patient refused to take scheduled clozapine stating it will paralyze him. Patient was talking half the dosage and is now refusing it all together. Patient took the rest of night and went back to bed. Patient continues to be argumentative with staff and selective with care. Plan: Pending placement
[2022-10-08] MEDS: tamsulosin 0.4mg capsule PO SCH (07:56)
[2022-10-08] MEDS: clozapine 25mg tablet PO SCH ×3 (07:56→20:13)
[2022-10-08] MEDS: docusate sod 100mg capsule PO SCH ×2 (07:56→20:13)
[2022-10-08 08:00] VITALS: BP 112/71
[2022-10-08] MEDS: PHENYLEPH/MIN OIL/PETROLAT hemorrhoid oint 57GM tube RC SCH ×2 (08:01→20:17)
[2022-10-08] MEDS: nicotine 21mg patch - 24 hr TD SCH (08:01)
[2022-10-08] MEDS ORDERED: bisacodyl 10mg suppository rectal RC ONE (12:05)
--- NOTE | 2022-10-08 18:00 | NUR ---
Nursing Progress Notes: Problem: 5150 states, Attending prescriber reports he needs safe hospitalization to titrate Clozaril and gain stability. Losing placement due to mood instability and psychosis. Interventions: 1:1 assessment, establishment of rapport, therapeutic conversation, active listening, ensured contract for safety, medication administration/education/monitoring, fall prevention, management, provided direction, reality orientation. Response: Received Pt in his room sleeping w/o distress. Pt woke and was cooperative with vitals and rested in bed until breakfast. He ate well at meals and snack and took AM meds w/o issue. Pt did not take his 1230 Clozaril, stating it paralysis his legs. Pt c/o constipation in lower bowel. He was given MOM with no effect. Pt was seen by Dr. Ye and given Bisacodyl Supp. with good effect. Pt hygiene is good and he continues to ambulate well with FWW. Pt pleasant in interactions and made his needs known appropriately. Pt spent most of the day in bed resting in Bed. Plan: Pt. continues to utilize the safe and supportive environment pending placement.
[2022-10-08 20:00] VITALS: BP 105/65
[2022-10-08] MEDS: traMADol 50MG tablet PO PRN (20:12)
[2022-10-08] MEDS: Melatonin 3mg tablet PO PRN (20:13)
[2022-10-08] MEDS: acetaminophen 325mg tablet PO PRN (20:14)
--- NOTE | 2022-10-09 04:53 | NUR ---
Nursing Progress Notes: Problem: 5150 states, Attending prescriber reports he needs safe hospitalization to titrate Clozaril and gain stability. Losing placement due to mood instability and psychosis. Interventions: 1:1 assessment, establishment of rapport, therapeutic conversation, active listening, ensured contract for safety, medication administration/education/monitoring, fall prevention, management, provided direction, reality orientation. Response: Upon turn of shift noted patient to be sleeping. Pleasant and calm. Med compliant except for Clozaril dose. Patient refused 50 mg dose and agreed to take 25 mg this shift. Patient is afraid of falling from having too high Clozaril dose. PRN Tylenol, Ultram, and Melatonin. Nicotine patch removed. Reports that hes doing well and denies MH s/sx. Plan is to be discharge to [facility] on Monday. Up with FWW. F/C patent and draining clear yellow urine. F/C care completed per patient. Upcoming UroLift procedure sometime after discharge. Patient slept well this shift. Will continue to monitor.VSS. Plan: Pt. continues to utilize the safe and supportive environment. Accepted to [facility] and will transfer there on Monday.
[2022-10-09 07:30] VITALS: BP 108/66
[2022-10-09] MEDS: PHENYLEPH/MIN OIL/PETROLAT hemorrhoid oint 57GM tube RC SCH ×2 (08:00→20:23)
[2022-10-09] MEDS: clozapine 25mg tablet PO SCH ×4 (08:17→20:22)
[2022-10-09] MEDS: tamsulosin 0.4mg capsule PO SCH (08:17)
[2022-10-09] MEDS: docusate sod 100mg capsule PO SCH ×2 (08:17→20:22)
[2022-10-09] MEDS: nicotine 21mg patch - 24 hr TD SCH (08:19)
[2022-10-09] MEDS: traMADol 50MG tablet PO PRN ×2 (10:49→20:22)
[2022-10-09] MEDS: magnesium hydroxide 30ml (MOM) UD suspension PO PRN (10:52)
--- NOTE | 2022-10-09 17:30 | NUR ---
Nursing Progress Notes: Problem: 5150 states, Attending prescriber reports he needs safe hospitalization to titrate Clozaril and gain stability. Losing placement due to mood instability and psychosis. Interventions: 1:1 assessment, establishment of rapport, therapeutic conversation, active listening, ensured contract for safety, medication administration/education/monitoring, fall prevention, management, provided direction, reality orientation. Response: Behaviors: Pt. is socially withdrawn. Pt. took all AM medications and ate all meals in the dining room but mostly isolates to his room. Pt. refused afternoon clozaril, stating, I told the doctor if I take that I wont be able to walk straight. Pt. showered in the afternoon. Mental health assessment: Pt. denies SI/HI, A/V hallucinations. Pt. reports feeling anxious about his discharge tomorrow, when offered PRN anxiolytic, pt. refused. Plan: Pt. continues to utilize the safe and supportive environment pending placement.
[2022-10-09 20:00] VITALS: BP 101/64
[2022-10-09] MEDS: Melatonin 3mg tablet PO PRN (20:22)
[2022-10-09] MEDS: acetaminophen 325mg tablet PO PRN (20:22)
--- NOTE | 2022-10-10 04:17 | NUR ---
Nursing Progress Notes: Problem: 5150 states, Attending prescriber reports he needs safe hospitalization to titrate Clozaril and gain stability. Losing placement due to mood instability and psychosis. Interventions: 1:1 assessment, establishment of rapport, therapeutic conversation, active listening, ensured contract for safety, medication administration/education/monitoring, fall prevention, management, provided direction, reality orientation. Response: Upon arrival to shift noted patient sitting up in bed, well-groomed and clean green scrubs on. Communicates needs well. Expressed being nervous regarding tomorrows discharge to [facility] for fear of the unknown. Reports, I only have 2-3 years left to live thankfully. Patient reports that hes ready to when the time comes. Denies MH s/sx. Med compliant. PRN Ultram, Tylenol, and Melatonin given. Refused 50 mg HS Clozaril, agreed to take 25 mg tonight. Patient reports that too much clozaril causes him to be a high fall risk. F/C care complete this shift. F/C patent and draining clear yellow urine. Slept well this shift. Will continue to monitor. Plan: Pt. continues to utilize the safe and supportive environment pending placement.
[2022-10-10 08:00] VITALS: BP 100/62
[2022-10-10] MEDS: clozapine 25mg tablet PO SCH (08:19)
[2022-10-10] MEDS: docusate sod 100mg capsule PO SCH (08:19)
[2022-10-10] MEDS: tamsulosin 0.4mg capsule PO SCH (08:19)
[2022-10-10] MEDS: nicotine 21mg patch - 24 hr TD SCH (08:33)
[2022-10-10] MEDS: PHENYLEPH/MIN OIL/PETROLAT hemorrhoid oint 57GM tube RC SCH (08:58)
--- NOTE | 2022-10-10 09:35 | NUR ---
F/u 6/5: Pt continues eating well, documented with mostly 100% PO intake on regular diet meeting estimated nutrient needs. LBM 6/4 also constipated 6/4 though large BM 6/3 documented in EMR; unsure accuracy. No nutrition intervention implemented at this time. Will continue to follow and make recommendations as appropriate. Recommendations: 1) Continue regular diet 2) Bowel care PRN 3) Weekly scaled weights Addendum: 10/10/22 at [address] Amended: Links added.
[2022-10-10] MEDS: traMADol 50MG tablet PO PRN (11:26)
[2022-10-10] MEDS ORDERED: CLOZ25TA12 PO ×3 (11:29)
--- NOTE | 2022-10-10 11:53 | NUR ---
DISCHARGE NOTE: Pt. discharged to [facility]. Pt. picked up by Cara from [facility] in auto. Pt. discharged with all belongings and valuables. RN went over all discharge paperwork, pt verbalized understanding and signed all paperwork, including firearms restriction, discharge medications and f/u appointments, and crisis phone numbers including 911. Pt. denies SI/HI, A/V hallucinations. Pt. is A&Ox4 and in no apparent distress.
== END 2022-10-10 11:53 | DRG 885 ==
LOC: ADULT MH 21:06
PROVIDERS: ADMIT Psychiatry & Neurology Psychiatry; ATTEND Psychiatry & Neurology Psychiatry
DX: F20.9 Schizophrenia, unspecified (principal); N18.30 Chronic kidney disease, stage 3 unspecified; N13.8 Other obstructive and reflux uropathy; F10.10 Alcohol abuse, uncomplicated; F17.210 Nicotine dependence, cigarettes, uncomplicated; J44.9 Chronic obstructive pulmonary disease, unspecified; G89.29 Other chronic pain; G62.9 Polyneuropathy, unspecified; K59.00 Constipation, unspecified; N40.1 Benign prostatic hyperplasia with lower urinary tract symptoms; T83.091A Other mechanical complication of indwelling urethral catheter, initial encounter; X58.XXXA Exposure to other specified factors, initial encounter; R33.9 Retention of urine, unspecified; R33.8 Other retention of urine; Z59.9 Problem related to housing and economic circumstances, unspecified; Z91.030 Bee allergy status
CPT/HCPCS: 36415; 80053; 80061; 85025; 87081; 97116; 97161; 97530; J7030

== ENCOUNTER 2023-04-28 17:10 | Inpatient (IN) | payer MEDICARE, MEDICAID ==
[~2023-04-28] VITALS: Ht 175.3 cm; Wt 56.8 kg
[~2023-04-28 17:10] MED LIST changes: -ACET-890 PO; +CLOZ25TA12 PO; -HYDR-3965 PO; +HYDR30CR79 TOP; -MAGN400T56 PO; -OLAN10TA73 PO; -OLAN5TAB75 PO; +POLY119P2 PO; +TRAM50TA2 PO
[2023-04-28] MEDS: normal saline 1000ml 1,000 ML IV ONE (18:35)
[2023-04-28 19:56] LABS: HEMOGLOBIN 13.8 g/dl (14.0-17.9); WHITE BLOOD COUNT 6.1 X10'3 (4.5-11.0)
[2023-04-28 19:57] LABS: BASOPHILS % (AUTO) 0.4 % (0-1); EOSINOPHILS % (AUTO) 0 % (0-6); HEMATOCRIT 40.9 % (42.0-52.0); LYMPHOCYTES # (AUTO) 1.2 X10'3 (1.1-4.8); LYMPHOCYTES % (AUTO) 18.8 % (21-51); MEAN CORPUSCULAR HEMOGLOBIN 32.6 PG (27.0-31.0); MEAN CORPUSCULAR HGB CONC 33.8 g/dL (33.0-36.5); MEAN CORPUSCULAR VOLUME 96.3 FL (78-98); MONOCYTES # (AUTO) 0.8 X10'3 (0-0.9); MONOCYTES % (AUTO) 12.5 % (2-12); NEUTROPHILS # (AUTO) 4.2 X10'3 (1.8-7.7); NEUTROPHILS % (AUTO) 68.3 % (42-75); PLATELET COUNT 207 X10'3 (140-440); RED BLOOD COUNT 4.24 X10'6 (4.70-6.10); RED CELL DISTRIBUTION WIDTH 13.6 % (11.5-14.5)
[2023-04-28 20:38] LABS: ALANINE AMINOTRANSFERASE 31 U/L (12-78); ALBUMIN 3.6 G/DL (3.4-5.0); ALBUMIN/GLOBULIN RATIO 0.9 (1.1-1.5); ALKALINE PHOSPHATASE 91 IU/L (46-116); ANION GAP 10 (8-16); ASPARTATE AMINO TRANSFERASE 19 U/L (10-37); BILIRUBIN,TOTAL 0.3 MG/DL (0.1-1.0); BLOOD UREA NITROGEN 30 MG/DL (7-18); BUN/CREATININE RATIO 12.9 (10.0-20.0); CALCIUM 9.3 MG/DL (8.5-10.1); CHLORIDE 101 MMOL/L (99-107); CREATININE 2.32 MG/DL (0.60-1.10); GLUCOSE 86 MG/DL (70-104); POTASSIUM 4.5 MMOL/L (3.5-5.1); SODIUM 135 MMOL/L (135-145); TOTAL CARBON DIOXIDE 23.8 MMOL/L (24-32); TOTAL PROTEIN 7.4 G/DL (6.4-8.2); eCRCL 26 ML/MIN; eGFR 28 ML/MIN
[2023-04-28 20:43] LABS: LIPASE 92 U/L (16-77)
[2023-04-28 20:43] LABS: BILIRUBIN,URINE NEGATIVE (Neg); CLARITY,URINE CLOUDY (Clear); COLOR,URINE YELLOW (Yellow); GLUCOSE, URINE NEGATIVE (Neg); KETONES,URINE TRACE mg/dl (Neg); LEUKOCYTE ESTERASE ,URINE MODERATE (Neg); NITRITES, URINE NEGATIVE (Neg); OCCULT BLOOD,URINE MODERATE (Neg); PROTEIN,URINE 30 mg/dl (Neg); UROBILINOGEN,URINE 0.2 E.U/dL (0.2-1.0)
[2023-04-28 20:44] LABS: UA COLLECTION TYPE FOLEY CATH
[2023-04-28 20:49] LABS: BACTERIA,URINE 4+ /HPF (Neg); MUCUS STRANDS NONE SEEN /LPF (Neg); RBC,URINE 0-2 /HPF (0-2); SQUAMOUS EPITHELIAL CELL,UR NONE SEEN /LPF (FEW); WBC,URINE 30-50 /HPF (0-4)
[2023-04-28] MEDS: magnesium citrate 296ml oral solution PO ONE (23:20)
[2023-04-29] MEDS ORDERED: ondansetron 4mg rapidly disintigrating tab PO PRN (00:40)
[2023-04-29] MEDS ORDERED: diphenhydrAMINE 25mg capsule PO PRN (00:40)
[2023-04-29] MEDS ORDERED: magnesium hydroxide 30ml (MOM) UD suspension PO PRN (00:40)
[2023-04-29] MEDS ORDERED: bisacodyl 10mg suppository rectal RC PRN (00:40)
[2023-04-29] MEDS ORDERED: diphenhydrAMINE 50 mg/ml inj IV PRN (00:40)
[2023-04-29] MEDS ORDERED: HYDROcodone/acetaminophen 10/325mg tab PO PRN (00:40)
[2023-04-29] MEDS ORDERED: morphine 2 MG/ML inj. syringe IV PRN ×2 (00:40)
[2023-04-29] MEDS ORDERED: ondansetron/PF 4mg/2ml inj IV PRN (00:40)
[2023-04-29] MEDS ORDERED: acetaminophen 325mg tablet PO PRN (00:40)
[2023-04-29] MEDS ORDERED: HYDROcodone/acetaminophen 5mg/325mg tablet PO PRN (00:40)
[2023-04-29] MEDS ORDERED: mag hydrox/Alum hydrox/simeth 30ml oral suspension PO PRN (00:40)
[2023-04-29] MEDS ORDERED: acetaminophen 650mg rectal suppository RC PRN (00:40)
[2023-04-29] MEDS ORDERED: magnesium citrate 296ml oral solution PO ONE (00:45)
[2023-04-29] MEDS: lactulose 20gm/30ml cup PO ONE (03:12)
[2023-04-29] MEDS: dextrose 5%-1/2 normal saline 1,000 ML IV SCH (03:13)
[2023-04-29] MEDS: pantoprazole 40mg Tablet.DR PO SCH (07:08)
[2023-04-29] MEDS: CefTRIAXone/D5W-Rocephin 1gm 50 ML IV SCH (07:08)
[2023-04-29] MEDS: docusate sod 100mg capsule PO SCH (07:09)
[2023-04-29] MEDS: heparin, porcine 5000 units/ml vial SQ SCH (07:12)
[2023-04-29 08:18] LABS: APTT 31 SECONDS (22-32)
[2023-04-29 08:20] LABS: PROTHROMBIN TIME 10.8 SECONDS (9.0-12.0)
[2023-04-29 08:46] LABS: MAGNESIUM 3.1 MG/DL (1.5-2.4); PHOSPHORUS 3.1 MG/DL (2.3-4.5)
[2023-04-29 09:39] VITALS: TEMP 97.8
[2023-04-29] MEDS: acetaminophen 325mg tablet PO PRN (14:04)
[2023-04-29 15:26] VITALS: BP 130/83; PULSE 72; RESP 16; O2SAT 99
[2023-04-29] MEDS ORDERED: polyethylene glycol 3350 17gm powd pack PO SCH (21:00)
[2023-04-29] MEDS ORDERED: temazepam 15mg capsule PO PRN (21:00)
[2023-05-29] MEDS ORDERED: PALI1.5T2 PO (05:54)
[2023-05-29] MEDS ORDERED: FLO0.4C PO (11:09)
[2023-05-29] MEDS ORDERED: CIPR250T4 PO (11:09)
[2023-05-29] MEDS ORDERED: ACET-1995 PO (11:09)
[2023-05-29] MEDS ORDERED: LACT1CAP26 PO (11:09)
[2023-05-29] MEDS ORDERED: AMPI500C11 PO (11:09)
[2023-05-29] MEDS ORDERED: NICO1PAT40 TOP (11:09)
[2023-05-29] MEDS ORDERED: SENN-25 PO (11:09)
[2023-05-29] MEDS ORDERED: ASORBIC ACID PO (11:09)
[2023-05-29] MEDS ORDERED: PALI3TAB PO (11:13)
[2023-05-29] MEDS ORDERED: MULT-1085 PO (11:13)
[2023-05-29] MEDS ORDERED: DOCU-148 PO (11:13)
[2023-05-29] MEDS ORDERED: CHOL100025 PO (11:13)
[2023-05-29] MEDS ORDERED: TADA5TAB2 PO (11:16)
[2023-06-20] MEDS ORDERED: ATOR20TA66 PO (09:45)
[2023-06-20] MEDS ORDERED: POLY119P2 PO (09:45)
[2023-06-20] MEDS ORDERED: SENN-362 PO (09:45)
[2023-06-20] MEDS ORDERED: HYDR-3965 PO (16:52)
== END 2023-04-29 17:04 | disposition home or self-care (01) | DRG 683 ==
LOC: ER 17:11 → ED HOLD 04-29 00:43 → EDBEDREQ 04-29 00:48
PROVIDERS: ADMIT Family Medicine; ATTEND Internal Medicine
DX: N17.9 Acute kidney failure, unspecified (principal); E46 Unspecified protein-calorie malnutrition; Z16.13 Resistance to carbapenem; N39.0 Urinary tract infection, site not specified; Z68.1 Body mass index [BMI] 19.9 or less, adult; N13.8 Other obstructive and reflux uropathy; K56.41 Fecal impaction; N40.1 Benign prostatic hyperplasia with lower urinary tract symptoms; F32.A Depression, unspecified; N18.9 Chronic kidney disease, unspecified; G89.4 Chronic pain syndrome; F20.9 Schizophrenia, unspecified; R00.1 Bradycardia, unspecified; Z87.891 Personal history of nicotine dependence; Z87.440 Personal history of urinary (tract) infections; Z09 Encounter for follow-up examination after completed treatment for conditions other than malignant neoplasm; Z91.030 Bee allergy status; Z79.899 Other long term (current) drug therapy
CPT/HCPCS: 36415; 74176; 80053; 81001; 83605; 83690; 83735; 83880; 84100; 84145; 84484; 85025; 85610; 85730; 87040; 87077; 87088; 87186; 96360; 99285; G0378; J0696; J1644; J3490; J7030

== ENCOUNTER 2023-05-15 09:02 | Emergency (ER) | payer MEDICARE, MEDICAID ==
[~2023-05-15] VITALS: Ht 175.3 cm; Wt 54.5 kg
[2023-05-15 13:08] VITALS: BP 104/63; PULSE 61; RESP 16; O2SAT 97
[2023-05-15] MEDS ORDERED: PRED20TA PO (15:16)
[2023-05-15] MEDS ORDERED: ketorolac trometh inj. 60 MG/2 ML VIAL IM ONE (15:20)
[2023-05-15 15:42] VITALS: TEMP 97.6
== END 2023-05-15 15:43 | disposition home or self-care (01) ==
LOC: ER 09:03
DX: S39.012A Strain of muscle, fascia and tendon of lower back, initial encounter (principal); G89.29 Other chronic pain; N40.0 Benign prostatic hyperplasia without lower urinary tract symptoms; Z79.899 Other long term (current) drug therapy; X58.XXXA Exposure to other specified factors, initial encounter; Y93.89 Activity, other specified; Y92.89 Other specified places as the place of occurrence of the external cause; Y99.8 Other external cause status
CPT/HCPCS: 96372; 99283; J1885

== ENCOUNTER 2023-06-21 15:31 | Emergency (ER) | payer MEDICARE, MEDICAID ==
[~2023-06-21] VITALS: Ht 175.3 cm; Wt 63.6 kg
[~2023-06-21 15:31] MED LIST changes: +ACET-1995 PO; +ASORBIC ACID PO; +ATOR20TA66 PO; +CHOL100025 PO; -CLOZ25TA12 PO; +DOCU-148 PO; +HYDR-3965 PO; -HYDR30CR79 TOP; +LACT1CAP26 PO; +MULT-1085 PO; -NICO-687 TD; -NICO-907 BC; +PALI1.5T2 PO; +SENN-362 PO; -TRAM50TA2 PO
[2023-06-21 16:37] LABS: BILIRUBIN,URINE NEGATIVE (Neg); CLARITY,URINE SLIGHTLY CLOUDY (Clear); COLOR,URINE YELLOW (Yellow); GLUCOSE, URINE NEGATIVE (Neg); KETONES,URINE NEGATIVE (Neg); LEUKOCYTE ESTERASE ,URINE SMALL (Neg); NITRITES, URINE POSITIVE (Neg); OCCULT BLOOD,URINE TRACE-INTACT (Neg); PROTEIN,URINE 30 mg/dl (Neg); UROBILINOGEN,URINE 0.2 E.U/dL (0.2-1.0)
[2023-06-21 16:41] LABS: UA COLLECTION TYPE FOLEY CATH
[2023-06-21 16:51] LABS: RBC,URINE 0-2 /HPF (0-2); SQUAMOUS EPITHELIAL CELL,UR FEW /LPF (FEW); WBC,URINE 20-30 /HPF (0-4)
[2023-06-21 16:53] LABS: FINE GRANULAR CAST 0-3 /LPF (NEGATIVE)
[2023-06-21 16:54] LABS: WBC CLUMPS,URINE FEW /HPF (NEGATIVE)
[2023-06-21 16:55] LABS: MUCUS STRANDS FEW /LPF (Neg)
[2023-06-21 17:00] LABS: BACTERIA,URINE 1+ /HPF (Neg)
[2023-06-21 18:04] LABS: BASOPHILS % (AUTO) 0.2 % (0-1); EOSINOPHILS % (AUTO) 0 % (0-6); HEMATOCRIT 38.3 % (42.0-52.0); HEMOGLOBIN 12.9 g/dl (14.0-17.9); LYMPHOCYTES # (AUTO) 1.1 X10'3 (1.1-4.8); LYMPHOCYTES % (AUTO) 14.2 % (21-51); MEAN CORPUSCULAR HEMOGLOBIN 31.7 PG (27.0-31.0); MEAN CORPUSCULAR HGB CONC 33.7 g/dL (33.0-36.5); MEAN CORPUSCULAR VOLUME 94.1 FL (78-98); MEAN PLATELET VOLUME 8.2 FL (7.4-10.4); MONOCYTES # (AUTO) 0.8 X10'3 (0-0.9); MONOCYTES % (AUTO) 9.8 % (2-12); NEUTROPHILS # (AUTO) 6.1 X10'3 (1.8-7.7); NEUTROPHILS % (AUTO) 75.8 % (42-75); PLATELET COUNT 249 X10'3 (140-440); RED BLOOD COUNT 4.07 X10'6 (4.70-6.10); RED CELL DISTRIBUTION WIDTH 12.8 % (11.5-14.5)
[2023-06-21 18:21] LABS: ALBUMIN 3.6 G/DL (3.4-5.0); ANION GAP 7 (8-16); BLOOD UREA NITROGEN 31 MG/DL (7-18); BUN/CREATININE RATIO 21.7 (10.0-20.0); CALCIUM 9.8 MG/DL (8.5-10.1); CHLORIDE 105 MMOL/L (99-107); CREATININE 1.43 MG/DL (0.60-1.10); GLUCOSE 81 MG/DL (70-104); POTASSIUM 4.3 MMOL/L (3.5-5.1); SODIUM 138 MMOL/L (135-145); TOTAL CARBON DIOXIDE 26.5 MMOL/L (24-32); eCRCL 46 ML/MIN; eGFR 49 ML/MIN
[2023-06-21 18:24] LABS: LACTIC SEPSIS 0.9 MMOL/L (0.4-2.0)
[2023-06-21 18:26] LABS: ACETAMINOPHEN < 2.0 UG/ML (10-30)
[2023-06-21 18:30] LABS: AMMONIA < 10 UMOL/L (11-32)
[2023-06-21 18:31] LABS: PROTHROMBIN TIME 11.2 SECONDS (9.0-12.0)
[2023-06-21 18:49] LABS: BILIRUBIN,URINE NEGATIVE (Neg); COLOR,URINE YELLOW (Yellow); GLUCOSE, URINE NEGATIVE (Neg); KETONES,URINE NEGATIVE (Neg); LEUKOCYTE ESTERASE ,URINE MODERATE (Neg); NITRITES, URINE POSITIVE (Neg); OCCULT BLOOD,URINE TRACE-INTACT (Neg); PROTEIN,URINE NEGATIVE (Neg); UA COLLECTION TYPE FOLEY CATH; UROBILINOGEN,URINE 0.2 E.U/dL (0.2-1.0)
[2023-06-21 18:57] LABS: SQUAMOUS EPITHELIAL CELL,UR NONE SEEN /LPF (FEW)
[2023-06-21 18:58] LABS: BACTERIA,URINE 1+ /HPF (Neg)
[2023-06-21 18:59] LABS: CLARITY,URINE Clear (Clear); RBC,URINE 0-2 /HPF (0-2)
[2023-06-21 20:36] LABS: BILIRUBIN,TOTAL 0.8 MG/DL (0.1-1.0)
[2023-06-21] MEDS: normal saline 1000ML IV soln IVB ONE (20:45)
[2023-06-21] MEDS ORDERED: iohexol 300mg/ml 100ml inj. ONE (21:01)
[2023-06-21] MEDS: HYDROmorphone 1 mg/ml syringe IV ONE (21:31)
[2023-06-21] MEDS ORDERED: MAGN296S89 PO (21:41)
[2023-06-21] MEDS: HYDROcodone/acetaminophen 5mg/325mg tablet PO ONE (22:09)
[2023-06-21 22:57] VITALS: BP 102/62; PULSE 63; RESP 16; TEMP 98.2; O2SAT 94
== END 2023-06-21 23:03 | disposition home or self-care (01) ==
LOC: ER 15:32
DX: N39.0 Urinary tract infection, site not specified (principal); K59.00 Constipation, unspecified; R41.82 Altered mental status, unspecified; F32.A Depression, unspecified; F20.9 Schizophrenia, unspecified; F17.210 Nicotine dependence, cigarettes, uncomplicated; Z79.899 Other long term (current) drug therapy
CPT/HCPCS: 36415; 70450; 71045; 74177; 80048; 80329; 81001; 82140; 82247; 83605; 84450; 84460; 84484; 85025; 85610; 87040; 87077; 87088; 87186; 93005; 96360; 99285; J3490; J7030; Q9967; 96374